=== PATIENT | male | born 1945 | race Caucasian/White ===

== ENCOUNTER → 2016-03-13 | Outpatient (CLI) | payer MEDICARE, OTHER ==
[~2016-03-13] MED LIST: DOXA4TAB; LOSA25TA8
== END | disposition home or self-care (01) ==
LOC: Rad HDHVI 09:22
PROVIDERS: ATTEND Internal Medicine Cardiovascular Disease
DX: Z01.818 Encounter for other preprocedural examination (principal); I34.2 Nonrheumatic mitral (valve) stenosis; I35.0 Nonrheumatic aortic (valve) stenosis; I37.1 Nonrheumatic pulmonary valve insufficiency; I07.1 Rheumatic tricuspid insufficiency
CPT/HCPCS: 93306; 93926; 93971

== ENCOUNTER → 2016-12-17 | Outpatient (CLI) | payer MEDICARE, OTHER ==
[2016-12-17 09:20] VITALS: BP 144/84
[2016-12-17 09:23] VITALS: BP_SYST 139; BP_SYST 144; BP_DIAS 78; BP_DIAS 84
[2016-12-17 09:30] VITALS: BP 139/78
== END | disposition home or self-care (01) ==
LOC: CHF HDHVI 09:01
PROVIDERS: ATTEND Internal Medicine Cardiovascular Disease
DX: I25.118 Atherosclerotic heart disease of native coronary artery with other forms of angina pectoris (principal); I13.0 Hypertensive heart and chronic kidney disease with heart failure and stage 1 through stage 4 chronic kidney disease, or unspecified chronic kidney disease; I50.43 Acute on chronic combined systolic (congestive) and diastolic (congestive) heart failure; Z98.61 Coronary angioplasty status; Z95.1 Presence of aortocoronary bypass graft
CPT/HCPCS: 93005; G0166; G0463

== ENCOUNTER → 2016-12-19 | Outpatient (CLI) | payer MEDICARE, OTHER ==
[2016-12-19 09:11] VITALS: BP_SYST 139; BP_SYST 141; BP_DIAS 87; BP_DIAS 91
== END | disposition home or self-care (01) ==
LOC: CHF HDHVI 09:11
PROVIDERS: ATTEND Internal Medicine Cardiovascular Disease
DX: I50.43 Acute on chronic combined systolic (congestive) and diastolic (congestive) heart failure (principal); I25.118 Atherosclerotic heart disease of native coronary artery with other forms of angina pectoris
CPT/HCPCS: G0166

== ENCOUNTER → 2016-12-21 | Outpatient (CLI) | payer MEDICARE, OTHER ==
[2016-12-21 09:09] VITALS: BP_SYST 120; BP_SYST 140; BP_DIAS 75; BP_DIAS 86
== END | disposition home or self-care (01) ==
LOC: CHF HDHVI 09:01
PROVIDERS: ATTEND Internal Medicine Cardiovascular Disease
DX: I25.118 Atherosclerotic heart disease of native coronary artery with other forms of angina pectoris (principal); I50.43 Acute on chronic combined systolic (congestive) and diastolic (congestive) heart failure; Z98.61 Coronary angioplasty status; Z95.1 Presence of aortocoronary bypass graft
CPT/HCPCS: G0166

== ENCOUNTER → 2016-12-24 | Outpatient (CLI) | payer MEDICARE, OTHER ==
[2016-12-24 09:13] VITALS: BP_SYST 140; BP_SYST 144; BP_DIAS 85; BP_DIAS 90
== END | disposition home or self-care (01) ==
LOC: CHF HDHVI 08:57
PROVIDERS: ATTEND Internal Medicine Cardiovascular Disease
DX: I25.118 Atherosclerotic heart disease of native coronary artery with other forms of angina pectoris (principal); I50.43 Acute on chronic combined systolic (congestive) and diastolic (congestive) heart failure; Z98.61 Coronary angioplasty status; Z95.1 Presence of aortocoronary bypass graft
CPT/HCPCS: G0166

== ENCOUNTER → 2016-12-26 | Outpatient (CLI) | payer MEDICARE, OTHER ==
[2016-12-26 10:07] VITALS: BP_SYST 139; BP_SYST 140; BP_DIAS 83; BP_DIAS 90
== END | disposition home or self-care (01) ==
LOC: CHF HDHVI 09:49
PROVIDERS: ATTEND Internal Medicine Cardiovascular Disease
DX: I25.118 Atherosclerotic heart disease of native coronary artery with other forms of angina pectoris (principal); I11.0 Hypertensive heart disease with heart failure; I50.43 Acute on chronic combined systolic (congestive) and diastolic (congestive) heart failure; Z98.61 Coronary angioplasty status; Z95.1 Presence of aortocoronary bypass graft
CPT/HCPCS: G0166

== ENCOUNTER → 2016-12-28 | Outpatient (CLI) | payer MEDICARE, OTHER ==
[2016-12-28 10:02] VITALS: BP_SYST 140; BP_DIAS 90; BP_DIAS 92
== END | disposition home or self-care (01) ==
LOC: CHF HDHVI 09:08
PROVIDERS: ATTEND Internal Medicine Cardiovascular Disease
DX: I25.118 Atherosclerotic heart disease of native coronary artery with other forms of angina pectoris (principal); I50.43 Acute on chronic combined systolic (congestive) and diastolic (congestive) heart failure; Z98.61 Coronary angioplasty status; Z95.1 Presence of aortocoronary bypass graft
CPT/HCPCS: G0166

== ENCOUNTER → 2016-12-31 | Outpatient (CLI) | payer MEDICARE, OTHER ==
[2016-12-31 10:06] VITALS: BP_SYST 140; BP_SYST 144; BP_DIAS 91; BP_DIAS 92
== END | disposition home or self-care (01) ==
LOC: CHF HDHVI 10:04
PROVIDERS: ATTEND Internal Medicine Cardiovascular Disease
DX: I25.118 Atherosclerotic heart disease of native coronary artery with other forms of angina pectoris (principal); I50.43 Acute on chronic combined systolic (congestive) and diastolic (congestive) heart failure; Z98.61 Coronary angioplasty status
CPT/HCPCS: G0166

== ENCOUNTER → 2017-01-02 | Outpatient (CLI) | payer MEDICARE, OTHER ==
[2017-01-02 10:11] VITALS: BP_SYST 140; BP_SYST 144; BP_DIAS 86; BP_DIAS 89
== END | disposition home or self-care (01) ==
LOC: CHF HDHVI 10:01
PROVIDERS: ATTEND Internal Medicine Cardiovascular Disease
DX: I25.118 Atherosclerotic heart disease of native coronary artery with other forms of angina pectoris (principal); I11.0 Hypertensive heart disease with heart failure; I50.43 Acute on chronic combined systolic (congestive) and diastolic (congestive) heart failure; Z98.61 Coronary angioplasty status; Z95.1 Presence of aortocoronary bypass graft
CPT/HCPCS: G0166

== ENCOUNTER → 2017-01-04 | Outpatient (CLI) | payer MEDICARE, OTHER ==
[2017-01-04 10:07] VITALS: BP_SYST 139; BP_DIAS 81; BP_DIAS 85
== END | disposition home or self-care (01) ==
LOC: CHF HDHVI 09:53
PROVIDERS: ATTEND Internal Medicine Cardiovascular Disease
DX: I25.118 Atherosclerotic heart disease of native coronary artery with other forms of angina pectoris (principal); I50.43 Acute on chronic combined systolic (congestive) and diastolic (congestive) heart failure; Z98.61 Coronary angioplasty status
CPT/HCPCS: G0166

== ENCOUNTER → 2017-01-07 | Outpatient (CLI) | payer MEDICARE, OTHER ==
[2017-01-07 10:05] VITALS: BP_SYST 129; BP_SYST 140; BP_DIAS 88; BP_DIAS 91
== END | disposition home or self-care (01) ==
LOC: CHF HDHVI 09:56
PROVIDERS: ATTEND Internal Medicine Cardiovascular Disease
DX: I25.118 Atherosclerotic heart disease of native coronary artery with other forms of angina pectoris (principal); I50.43 Acute on chronic combined systolic (congestive) and diastolic (congestive) heart failure; Z98.61 Coronary angioplasty status
CPT/HCPCS: G0166

== ENCOUNTER → 2017-01-10 | Outpatient (CLI) | payer MEDICARE, OTHER ==
[2017-01-10 10:05] VITALS: BP_SYST 134; BP_SYST 144; BP_DIAS 84; BP_DIAS 89
== END | disposition home or self-care (01) ==
LOC: CHF HDHVI 09:49
PROVIDERS: ATTEND Internal Medicine Cardiovascular Disease
DX: I25.118 Atherosclerotic heart disease of native coronary artery with other forms of angina pectoris (principal); I50.43 Acute on chronic combined systolic (congestive) and diastolic (congestive) heart failure; Z98.61 Coronary angioplasty status
CPT/HCPCS: G0166

== ENCOUNTER → 2017-01-11 | Outpatient (CLI) | payer MEDICARE, OTHER ==
[2017-01-11 09:00] VITALS: BP_SYST 140; BP_SYST 142; BP_DIAS 92
== END | disposition home or self-care (01) ==
LOC: CHF HDHVI 10:05
PROVIDERS: ATTEND Internal Medicine Cardiovascular Disease
DX: I25.118 Atherosclerotic heart disease of native coronary artery with other forms of angina pectoris (principal); I50.43 Acute on chronic combined systolic (congestive) and diastolic (congestive) heart failure; Z98.61 Coronary angioplasty status
CPT/HCPCS: G0166

== ENCOUNTER → 2017-01-14 | Outpatient (CLI) | payer MEDICARE, OTHER ==
[2017-01-14 10:09] VITALS: BP_SYST 135; BP_SYST 140; BP_DIAS 88; BP_DIAS 94
== END | disposition home or self-care (01) ==
LOC: CHF HDHVI 09:55
PROVIDERS: ATTEND Internal Medicine Cardiovascular Disease
DX: I25.118 Atherosclerotic heart disease of native coronary artery with other forms of angina pectoris (principal); I50.43 Acute on chronic combined systolic (congestive) and diastolic (congestive) heart failure; Z98.61 Coronary angioplasty status
CPT/HCPCS: G0166

== ENCOUNTER → 2017-01-18 | Outpatient (CLI) | payer MEDICARE, OTHER ==
[2017-01-18 10:15] VITALS: BP_SYST 135; BP_SYST 139; BP_DIAS 81; BP_DIAS 96
== END | disposition home or self-care (01) ==
LOC: CHF HDHVI 10:07
PROVIDERS: ATTEND Internal Medicine Cardiovascular Disease
DX: I25.118 Atherosclerotic heart disease of native coronary artery with other forms of angina pectoris (principal); I50.43 Acute on chronic combined systolic (congestive) and diastolic (congestive) heart failure; Z98.61 Coronary angioplasty status
CPT/HCPCS: G0166

== ENCOUNTER → 2017-01-22 | Outpatient (CLI) | payer MEDICARE, OTHER ==
[2017-01-22 10:01] VITALS: BP_SYST 131; BP_SYST 139; BP_DIAS 89; BP_DIAS 92
== END | disposition home or self-care (01) ==
LOC: CHF HDHVI 10:02
PROVIDERS: ATTEND Internal Medicine Cardiovascular Disease
DX: I25.118 Atherosclerotic heart disease of native coronary artery with other forms of angina pectoris (principal); I50.43 Acute on chronic combined systolic (congestive) and diastolic (congestive) heart failure; Z98.61 Coronary angioplasty status
CPT/HCPCS: G0166

== ENCOUNTER → 2017-01-23 | Outpatient (CLI) | payer MEDICARE, OTHER ==
[2017-01-23 10:08] VITALS: BP_SYST 143; BP_SYST 144; BP_DIAS 87; BP_DIAS 91
== END | disposition home or self-care (01) ==
LOC: CHF HDHVI 10:01
PROVIDERS: ATTEND Internal Medicine Cardiovascular Disease
DX: I25.118 Atherosclerotic heart disease of native coronary artery with other forms of angina pectoris (principal); I50.43 Acute on chronic combined systolic (congestive) and diastolic (congestive) heart failure; Z98.61 Coronary angioplasty status
CPT/HCPCS: G0166

== ENCOUNTER → 2017-01-25 | Outpatient (CLI) | payer MEDICARE, OTHER ==
[2017-01-25 10:15] VITALS: BP_SYST 141; BP_SYST 143; BP_DIAS 79; BP_DIAS 85
== END | disposition home or self-care (01) ==
LOC: CHF HDHVI 10:06
PROVIDERS: ATTEND Internal Medicine Cardiovascular Disease
DX: I25.118 Atherosclerotic heart disease of native coronary artery with other forms of angina pectoris (principal); I50.43 Acute on chronic combined systolic (congestive) and diastolic (congestive) heart failure; Z98.61 Coronary angioplasty status; Z95.1 Presence of aortocoronary bypass graft
CPT/HCPCS: G0166

== ENCOUNTER → 2017-01-28 | Outpatient (CLI) | payer MEDICARE, OTHER ==
[2017-01-28 10:26] VITALS: BP_SYST 133; BP_SYST 144; BP_DIAS 88; BP_DIAS 93
== END | disposition home or self-care (01) ==
LOC: CHF HDHVI 09:57
PROVIDERS: ATTEND Internal Medicine Cardiovascular Disease
DX: I25.118 Atherosclerotic heart disease of native coronary artery with other forms of angina pectoris (principal); I50.43 Acute on chronic combined systolic (congestive) and diastolic (congestive) heart failure; Z98.61 Coronary angioplasty status; Z95.1 Presence of aortocoronary bypass graft
CPT/HCPCS: G0166

== ENCOUNTER → 2017-01-30 | Outpatient (CLI) | payer MEDICARE, OTHER ==
[2017-01-30 10:04] VITALS: BP_SYST 131; BP_SYST 140; BP_DIAS 87; BP_DIAS 93
== END | disposition home or self-care (01) ==
LOC: CHF HDHVI 09:54
PROVIDERS: ATTEND Internal Medicine Cardiovascular Disease
DX: I25.118 Atherosclerotic heart disease of native coronary artery with other forms of angina pectoris (principal); I50.43 Acute on chronic combined systolic (congestive) and diastolic (congestive) heart failure; Z98.61 Coronary angioplasty status
CPT/HCPCS: G0166

== ENCOUNTER → 2017-02-04 | Outpatient (CLI) | payer MEDICARE, OTHER ==
[2017-02-04 10:33] VITALS: BP_SYST 135; BP_SYST 138; BP_DIAS 80; BP_DIAS 85
== END | disposition home or self-care (01) ==
LOC: CHF HDHVI 10:04
PROVIDERS: ATTEND Internal Medicine Cardiovascular Disease
DX: I25.118 Atherosclerotic heart disease of native coronary artery with other forms of angina pectoris (principal); I50.43 Acute on chronic combined systolic (congestive) and diastolic (congestive) heart failure; Z98.61 Coronary angioplasty status
CPT/HCPCS: G0166

== ENCOUNTER → 2017-02-06 | Outpatient (CLI) | payer MEDICARE, OTHER ==
[2017-02-06 10:18] VITALS: BP_SYST 128; BP_DIAS 74; BP_DIAS 81
== END | disposition home or self-care (01) ==
LOC: CHF HDHVI 10:06
PROVIDERS: ATTEND Internal Medicine Cardiovascular Disease
DX: I25.118 Atherosclerotic heart disease of native coronary artery with other forms of angina pectoris (principal); I50.43 Acute on chronic combined systolic (congestive) and diastolic (congestive) heart failure; Z98.61 Coronary angioplasty status; Z95.1 Presence of aortocoronary bypass graft
CPT/HCPCS: G0166

== ENCOUNTER → 2017-02-08 | Outpatient (CLI) | payer MEDICARE, OTHER ==
[2017-02-08 10:22] VITALS: BP_SYST 139; BP_SYST 142; BP_DIAS 79; BP_DIAS 85
== END | disposition home or self-care (01) ==
LOC: CHF HDHVI 09:41
PROVIDERS: ATTEND Internal Medicine Cardiovascular Disease
DX: I25.118 Atherosclerotic heart disease of native coronary artery with other forms of angina pectoris (principal); I50.43 Acute on chronic combined systolic (congestive) and diastolic (congestive) heart failure; Z98.61 Coronary angioplasty status
CPT/HCPCS: G0166

== ENCOUNTER → 2017-02-11 | Outpatient (CLI) | payer MEDICARE, OTHER ==
[2017-02-11 10:20] VITALS: BP_SYST 133; BP_SYST 140; BP_DIAS 83; BP_DIAS 86
== END | disposition home or self-care (01) ==
LOC: CHF HDHVI 10:17
PROVIDERS: ATTEND Internal Medicine Cardiovascular Disease
DX: I25.118 Atherosclerotic heart disease of native coronary artery with other forms of angina pectoris (principal); I50.43 Acute on chronic combined systolic (congestive) and diastolic (congestive) heart failure; Z98.61 Coronary angioplasty status
CPT/HCPCS: G0166

== ENCOUNTER → 2017-02-13 | Outpatient (CLI) | payer MEDICARE, OTHER ==
[2017-02-13 10:10] VITALS: BP_SYST 129; BP_SYST 130; BP_DIAS 82; BP_DIAS 89
== END | disposition home or self-care (01) ==
LOC: CHF HDHVI 10:03
PROVIDERS: ATTEND Internal Medicine Cardiovascular Disease
DX: I25.118 Atherosclerotic heart disease of native coronary artery with other forms of angina pectoris (principal); I50.43 Acute on chronic combined systolic (congestive) and diastolic (congestive) heart failure; Z98.61 Coronary angioplasty status
CPT/HCPCS: G0166

== ENCOUNTER → 2017-02-15 | Outpatient (CLI) | payer MEDICARE, OTHER ==
[2017-02-15 10:17] VITALS: BP_SYST 134; BP_SYST 139; BP_DIAS 81; BP_DIAS 88
== END | disposition home or self-care (01) ==
LOC: CHF HDHVI 10:57
PROVIDERS: ATTEND Internal Medicine Cardiovascular Disease
DX: I25.118 Atherosclerotic heart disease of native coronary artery with other forms of angina pectoris (principal); I50.43 Acute on chronic combined systolic (congestive) and diastolic (congestive) heart failure; Z98.61 Coronary angioplasty status
CPT/HCPCS: G0166

== ENCOUNTER → 2017-02-20 | Outpatient (CLI) | payer MEDICARE, OTHER ==
[2017-02-20 10:09] VITALS: BP_SYST 139; BP_SYST 140; BP_DIAS 90; BP_DIAS 91
== END | disposition home or self-care (01) ==
LOC: CHF HDHVI 10:03
PROVIDERS: ATTEND Internal Medicine Cardiovascular Disease
DX: I25.118 Atherosclerotic heart disease of native coronary artery with other forms of angina pectoris (principal); I50.43 Acute on chronic combined systolic (congestive) and diastolic (congestive) heart failure; Z98.61 Coronary angioplasty status
CPT/HCPCS: G0166

== ENCOUNTER → 2017-02-22 | Outpatient (CLI) | payer MEDICARE, OTHER ==
[2017-02-22 10:14] VITALS: BP_SYST 134; BP_DIAS 84; BP_DIAS 87
== END | disposition home or self-care (01) ==
LOC: CHF HDHVI 10:03
PROVIDERS: ATTEND Internal Medicine Cardiovascular Disease
DX: I25.118 Atherosclerotic heart disease of native coronary artery with other forms of angina pectoris (principal); I50.43 Acute on chronic combined systolic (congestive) and diastolic (congestive) heart failure; Z98.61 Coronary angioplasty status
CPT/HCPCS: G0166

== ENCOUNTER → 2017-02-26 | Outpatient (CLI) | payer MEDICARE, OTHER ==
[2017-02-26 10:19] VITALS: BP_SYST 136; BP_SYST 142; BP_DIAS 91; BP_DIAS 92
== END | disposition home or self-care (01) ==
LOC: CHF HDHVI 10:09
PROVIDERS: ATTEND Internal Medicine Cardiovascular Disease
DX: I25.118 Atherosclerotic heart disease of native coronary artery with other forms of angina pectoris (principal); I50.43 Acute on chronic combined systolic (congestive) and diastolic (congestive) heart failure; Z98.61 Coronary angioplasty status
CPT/HCPCS: G0166

== ENCOUNTER → 2017-02-27 | Outpatient (CLI) | payer MEDICARE, OTHER ==
[2017-02-27 10:08] VITALS: BP_SYST 113; BP_SYST 118; BP_DIAS 68; BP_DIAS 78
== END | disposition home or self-care (01) ==
LOC: CHF HDHVI 10:06
PROVIDERS: ATTEND Internal Medicine Cardiovascular Disease
DX: I25.118 Atherosclerotic heart disease of native coronary artery with other forms of angina pectoris (principal); I50.43 Acute on chronic combined systolic (congestive) and diastolic (congestive) heart failure; Z98.61 Coronary angioplasty status
CPT/HCPCS: G0166

== ENCOUNTER → 2017-03-01 | Outpatient (CLI) | payer MEDICARE, OTHER ==
[2017-03-01 10:17] VITALS: BP_SYST 128; BP_SYST 134; BP_DIAS 85; BP_DIAS 87
== END | disposition home or self-care (01) ==
LOC: CHF HDHVI 10:11
PROVIDERS: ATTEND Internal Medicine Cardiovascular Disease
DX: I25.118 Atherosclerotic heart disease of native coronary artery with other forms of angina pectoris (principal); I50.43 Acute on chronic combined systolic (congestive) and diastolic (congestive) heart failure; Z98.61 Coronary angioplasty status
CPT/HCPCS: G0166

== ENCOUNTER → 2017-03-05 | Outpatient (CLI) | payer MEDICARE, OTHER ==
[2017-03-05 10:18] VITALS: BP_SYST 125; BP_SYST 131; BP_DIAS 80; BP_DIAS 91
== END | disposition home or self-care (01) ==
LOC: CHF HDHVI 10:06
PROVIDERS: ATTEND Internal Medicine Cardiovascular Disease
DX: I25.118 Atherosclerotic heart disease of native coronary artery with other forms of angina pectoris (principal); I50.43 Acute on chronic combined systolic (congestive) and diastolic (congestive) heart failure; Z98.61 Coronary angioplasty status
CPT/HCPCS: G0166

== ENCOUNTER → 2017-03-08 | Outpatient (CLI) | payer MEDICARE, OTHER ==
[2017-03-08 10:15] VITALS: BP_SYST 123; BP_SYST 124; BP_DIAS 83; BP_DIAS 90
== END | disposition home or self-care (01) ==
LOC: CHF HDHVI 10:14
PROVIDERS: ATTEND Internal Medicine Cardiovascular Disease
DX: I25.118 Atherosclerotic heart disease of native coronary artery with other forms of angina pectoris (principal); I50.43 Acute on chronic combined systolic (congestive) and diastolic (congestive) heart failure; Z98.61 Coronary angioplasty status
CPT/HCPCS: G0166

== ENCOUNTER → 2017-03-12 | Outpatient (CLI) | payer MEDICARE, OTHER ==
[2017-03-12 10:11] VITALS: BP_SYST 124; BP_SYST 136; BP_DIAS 90; BP_DIAS 92
== END | disposition home or self-care (01) ==
LOC: CHF HDHVI 10:07
PROVIDERS: ATTEND Internal Medicine Cardiovascular Disease
DX: I25.118 Atherosclerotic heart disease of native coronary artery with other forms of angina pectoris (principal); I50.43 Acute on chronic combined systolic (congestive) and diastolic (congestive) heart failure; Z98.61 Coronary angioplasty status
CPT/HCPCS: G0166

== ENCOUNTER → 2017-03-15 | Outpatient (CLI) | payer MEDICARE, OTHER ==
[2017-03-15 10:12] VITALS: BP_SYST 131; BP_SYST 132; BP_DIAS 79; BP_DIAS 87
== END | disposition home or self-care (01) ==
LOC: CHF HDHVI 10:08
PROVIDERS: ATTEND Internal Medicine Cardiovascular Disease
DX: I25.118 Atherosclerotic heart disease of native coronary artery with other forms of angina pectoris (principal); I50.43 Acute on chronic combined systolic (congestive) and diastolic (congestive) heart failure; Z98.61 Coronary angioplasty status
CPT/HCPCS: G0166

== ENCOUNTER → 2017-03-18 | Outpatient (CLI) | payer MEDICARE, OTHER ==
[2017-03-18 10:16] VITALS: BP_SYST 134; BP_SYST 143; BP_DIAS 81; BP_DIAS 86
[2017-03-18 10:20] VITALS: BP 134/82
[2017-03-18 15:20] VITALS: BP 140/80
== END | disposition home or self-care (01) ==
LOC: CHF HDHVI 10:13
PROVIDERS: ATTEND Internal Medicine Cardiovascular Disease
DX: I25.118 Atherosclerotic heart disease of native coronary artery with other forms of angina pectoris (principal); I50.43 Acute on chronic combined systolic (congestive) and diastolic (congestive) heart failure; Z98.61 Coronary angioplasty status
CPT/HCPCS: G0166; G0463

== ENCOUNTER → 2017-03-28 | Outpatient (CLI) | payer MEDICARE, OTHER | END | disposition home or self-care (01) | LOC: Rad HDHVI 08:05 | PROVIDERS: ATTEND Internal Medicine Cardiovascular Disease | DX: I08.0 Rheumatic disorders of both mitral and aortic valves (principal) | CPT/HCPCS: 93306 ==

== ENCOUNTER → 2017-04-01 | Outpatient (CLI) | payer MEDICARE, OTHER ==
[~2017-04-01] VITALS: Ht 162.6 cm; Wt 90.7 kg
== END | disposition home or self-care (01) ==
LOC: Rad HDHVI 14:25
PROVIDERS: ATTEND Internal Medicine Cardiovascular Disease
DX: R07.9 Chest pain, unspecified (principal); I21.9 Acute myocardial infarction, unspecified; E78.00 Pure hypercholesterolemia, unspecified; I25.10 Atherosclerotic heart disease of native coronary artery without angina pectoris; Z95.0 Presence of cardiac pacemaker
CPT/HCPCS: 78452; 93017; 96374; A9500

== ENCOUNTER 2017-11-07 17:32 | Inpatient (IN) | payer MEDICARE, OTHER ==
[~2017-11-07] VITALS: Ht 162.6 cm; Wt 91.6 kg
[~2017-11-07 17:32] MED LIST changes: -ALUM & MAG HYDROX-SIMETH LIQ(MAALOX) 30 ML ONE; -ALUM & MAG HYDROX-SIMETH LIQ(MAALOX) 30 ML PO ONE; -ATO40T PO; -CLOP75TA28 PO; -DONNATAL 5ml ORAL Elix (BELLADONNA ALK-PHENOBARB) ONE; -DONNATAL 5ml ORAL Elix (BELLADONNA ALK-PHENOBARB) PO ONE; -LIDOCAINE VISCOUS 2% 15ML UD MT PRN; -LIDOCAINE VISCOUS 2% 15ML UD ONE
[2017-11-07 18:55] LABS: Basophils # (auto) 0.1 uL; Basophils % (auto) 0.5 % (0.0-2.0); Eosinophils # (auto) 0.1 uL; Eosinophils % (auto) 0.5 % (0.0-7.0); Hematocrit 49.5 % (41.0-53.0); Lymphocytes # (auto) 0.7 uL; Lymphocytes % (auto) 6.1 % (10.0-50.0); Mean Corpuscular Hemoglobin 30.8 pg (28.0-32.0); Mean Corpuscular Hgb Conc. 34.3 g/dL (32.0-36.0); Mean Corpuscular Volume 89.8 fL (80.0-100.0); Monocytes # (auto) 0.9 uL; Monocytes % (auto) 7.9 % (0.0-12.0); Neutrophils # (auto) 10.1 uL; Platelet Count (auto) 251 10^3/uL (140-450); Red Blood Cells 5.51 10^6/uL (4.5-5.90); Red Cell Distribution Width 14.4 % (11.8-14.3); White Blood Cell 11.9 10^3/uL (4.4-10.8)
[2017-11-07 19:05] LABS: INR 1.02 (0.9-1.15); Partial Thromboplastin Time 21.8 sec (23.78-33.04); Prothrombin Time 10.9 sec (9.27-12.13)
[2017-11-07 19:14] LABS: Alanine Aminotransferase 34 U/L (16-61); Albumin 3.9 g/dL (3.4-5.0); Alkaline Phosphatase 92 U/L (45-117); Anion Gap 7 (5-15); Aspartate Aminotransferase 28 U/L (15-37); BUN/Creatinine Ratio 11.9; Bilirubin, Total 1.6 mg/dL (0.2-1.0); Blood Urea Nitrogen 16 mg/dL (7-18); Calcium 8.9 mg/dL (8.5-10.1); Carbon Dioxide 25 mmol/L (21-32); Chloride 107 mmol/L (98-107); GFR African American 67 mL/min; GFR Non-African American 55 mL/min; Glucose 102 mg/dL (74-106); Magnesium 2.4 mg/dL (1.6-2.6); Potassium 3.9 mmol/L (3.5-5.1); Sodium 139 mmol/L (136-145); Total Protein 7.2 g/dL (6.4-8.2)
[2017-11-07] MEDS ORDERED: PANTOPRAZOLE 40 MG/10 ML VIAL IV ONE (19:45)
[2017-11-07] MEDS: SODIUM CHLORIDE 0.9% 1,000 ML IV SCH (21:17)
[2017-11-07] MEDS ORDERED: MORPHINE SULF INJ 2 MG/ML SYRINGE 1ML IV PRN (21:30)
[2017-11-07] MEDS ORDERED: NITROGLYCERIN 0.4 MG SL TAB SL PRN (21:30)
[2017-11-07] MEDS: FAMOTIDINE (10MG/ML) 2ML VL IV SCH (21:36)
[2017-11-07] MEDS ORDERED: CLOP75TA28 PO (21:48)
[2017-11-07] MEDS ORDERED: ATO40T PO (21:48)
[2017-11-07] MEDS: ATORVASTATIN 20 MG TAB PO SCH (22:45)
[2017-11-07 23:00] VITALS: BP 128/73
[2017-11-08] MEDS ORDERED: ONDANSETRON HCL 4 MG/2 ML VIAL IV PRN (01:30)
[2017-11-08 05:38] VITALS: BP 109/73
[2017-11-08 08:45] VITALS: BP 120/71
[2017-11-08] MEDS: LOSARTAN POTASSIUM 25 MG TAB PO SCH (09:29)
[2017-11-08] MEDS: LEVOFLOXACIN 500MG 100 ML IV SCH (09:31)
[2017-11-08] MEDS: CLOPIDOGREL BISULFATE 75 MG TAB PO SCH (09:31)
[2017-11-08] MEDS: FAMOTIDINE (10MG/ML) 2ML VL IV SCH ×2 (09:32→22:22)
[2017-11-08] MEDS: SODIUM CHLORIDE 0.9% 1,000 ML IV SCH ×2 (11:46→23:50)
[2017-11-08 12:00] VITALS: BP 127/79
[2017-11-08 16:10] VITALS: BP 121/71
[2017-11-08] MEDS ORDERED: TEMAZEPAM 15 MG CAP PO PRN (16:45)
[2017-11-08 17:23] LABS: Basophils # (auto) 0.1 uL; Basophils % (auto) 1.6 % (0.0-2.0); Eosinophils # (auto) 0.3 uL; Eosinophils % (auto) 3.8 % (0.0-7.0); Hematocrit 45.7 % (41.0-53.0); Hemoglobin 15.6 g/dL (13.5-17.5); Lymphocytes # (auto) 1.4 uL; Lymphocytes % (auto) 19.6 % (10.0-50.0); Mean Corpuscular Hemoglobin 31.1 pg (28.0-32.0); Mean Corpuscular Hgb Conc. 34.2 g/dL (32.0-36.0); Mean Corpuscular Volume 91.1 fL (80.0-100.0); Monocytes # (auto) 0.7 uL; Monocytes % (auto) 9.8 % (0.0-12.0); Neutrophils # (auto) 4.5 uL; Neutrophils % (auto) 65.2 % (37.0-80.0); Nucleated Red Blood Cells % 0.1 %; Platelet Count (auto) 222 10^3/uL (140-450); Red Blood Cells 5.02 10^6/uL (4.5-5.90); Red Cell Distribution Width 14.5 % (11.8-14.3)
[2017-11-08 21:53] VITALS: BP 140/78
[2017-11-08] MEDS: ATORVASTATIN 20 MG TAB PO SCH (22:22)
[2017-11-09 04:48] VITALS: BP 112/66
[2017-11-09 09:00] VITALS: BP 149/88
[2017-11-09] MEDS: CLOPIDOGREL BISULFATE 75 MG TAB PO SCH (09:59)
[2017-11-09] MEDS: LEVOFLOXACIN 500MG 100 ML IV SCH (09:59)
[2017-11-09] MEDS: FAMOTIDINE (10MG/ML) 2ML VL IV SCH (09:59)
[2017-11-09] MEDS: LOSARTAN POTASSIUM 25 MG TAB PO SCH (10:00)
[2017-11-09 13:40] VITALS: BP 114/74
[2017-11-09 16:48] VITALS: BP 114/74
== END 2017-11-09 17:05 | disposition home or self-care (01) | DRG 872 ==
LOC: ER 17:34 → OVERFLOW 17:35 → CENTRAL 22:32
PROVIDERS: ADMIT Internal Medicine Cardiovascular Disease; ATTEND Internal Medicine Cardiovascular Disease
DX: A41.9 Sepsis, unspecified organism (principal); K52.9 Noninfective gastroenteritis and colitis, unspecified; I25.10 Atherosclerotic heart disease of native coronary artery without angina pectoris; G47.30 Sleep apnea, unspecified; I10 Essential (primary) hypertension; Z82.49 Family history of ischemic heart disease and other diseases of the circulatory system; Z86.74 Personal history of sudden cardiac arrest; Z87.11 Personal history of peptic ulcer disease; Z79.899 Other long term (current) drug therapy; I25.2 Old myocardial infarction; Z90.49 Acquired absence of other specified parts of digestive tract; Z95.5 Presence of coronary angioplasty implant and graft; Z95.0 Presence of cardiac pacemaker; Z98.49 Cataract extraction status, unspecified eye
CPT/HCPCS: 36415; 71045; 80053; 83735; 83880; 84484; 85025; 85610; 85730; 93005; 94761; 96374; C9113; G0463; J1956; J2405; J3490

== ENCOUNTER → 2017-11-07 | Outpatient (CLI) | payer MEDICARE, OTHER ==
[~2017-11-07] MED LIST changes: +ALUM & MAG HYDROX-SIMETH LIQ(MAALOX) 30 ML ONE; +ALUM & MAG HYDROX-SIMETH LIQ(MAALOX) 30 ML PO ONE; +ATO40T PO; +CLOP75TA28 PO; +DONNATAL 5ml ORAL Elix (BELLADONNA ALK-PHENOBARB) ONE; +DONNATAL 5ml ORAL Elix (BELLADONNA ALK-PHENOBARB) PO ONE; +LIDOCAINE VISCOUS 2% 15ML UD MT PRN; +LIDOCAINE VISCOUS 2% 15ML UD ONE
[2017-11-07 15:55] VITALS: BP 147/95
[2017-11-07 17:10] VITALS: BP 144/89
== END | disposition home or self-care (01) ==
LOC: CHF HDHVI 15:51
PROVIDERS: ATTEND Internal Medicine Cardiovascular Disease
DX: I10 Essential (primary) hypertension (principal); R10.9 Unspecified abdominal pain; I25.10 Atherosclerotic heart disease of native coronary artery without angina pectoris; R10.13 Epigastric pain; Z87.891 Personal history of nicotine dependence
CPT/HCPCS: 93005; G0463

== ENCOUNTER → 2017-12-10 | Outpatient (CLI) | payer MEDICARE, OTHER ==
[~2017-12-10] MED LIST changes: +ATO40T PO; +CLOP75TA28 PO; -DOXA4TAB; +DOXA4TAB PO
[2017-12-10 08:25] VITALS: BP 146/86
[2017-12-10 09:15] VITALS: BP 133/81
[2017-12-10 12:19] LABS: Basophils # (auto) 0.1 uL; Basophils % (auto) 1.1 % (0.0-2.0); Eosinophils # (auto) 0.3 uL; Eosinophils % (auto) 4.2 % (0.0-7.0); Hematocrit 50.6 % (41.0-53.0); Hemoglobin 16.8 g/dL (13.5-17.5); Lymphocytes # (auto) 1.7 uL; Lymphocytes % (auto) 28.4 % (10.0-50.0); Mean Corpuscular Hemoglobin 30.1 pg (28.0-32.0); Mean Corpuscular Hgb Conc. 33.2 g/dL (32.0-36.0); Mean Corpuscular Volume 90.5 fL (80.0-100.0); Monocytes # (auto) 0.6 uL; Monocytes % (auto) 9.5 % (0.0-12.0); Neutrophils # (auto) 3.5 uL; Neutrophils % (auto) 56.8 % (37.0-80.0); Nucleated Red Blood Cells % 0.2 %; Platelet Count (auto) 235 10^3/uL (140-450); Red Blood Cells 5.59 10^6/uL (4.5-5.90); Red Cell Distribution Width 14.1 % (11.8-14.3); White Blood Cell 6.1 10^3/uL (4.4-10.8)
[2017-12-10 12:31] LABS: BUN/Creatinine Ratio 13.4; Calcium 8.5 mg/dL (8.5-10.1); Potassium 3.8 mmol/L (3.5-5.1)
[2017-12-10 12:32] LABS: Partial Thromboplastin Time 25.8 sec (23.78-33.04); Prothrombin Time 10.7 sec (9.27-12.13)
== END | disposition home or self-care (01) ==
LOC: CHF HDHVI 08:19
PROVIDERS: ATTEND Internal Medicine Cardiovascular Disease
DX: Z01.818 Encounter for other preprocedural examination (principal); D64.9 Anemia, unspecified; R79.1 Abnormal coagulation profile; I10 Essential (primary) hypertension; R94.31 Abnormal electrocardiogram [ECG] [EKG]
CPT/HCPCS: 36415; 80048; 85025; 85610; 85730; 93005; G0463

== ENCOUNTER → 2018-01-27 | Outpatient (CLI) | payer MEDICARE, OTHER | END | disposition home or self-care (01) | LOC: Rad HDHVI 09:08 | PROVIDERS: ATTEND Internal Medicine Cardiovascular Disease | DX: I07.1 Rheumatic tricuspid insufficiency (principal); I20.9 Angina pectoris, unspecified; I11.0 Hypertensive heart disease with heart failure; I50.23 Acute on chronic systolic (congestive) heart failure | CPT/HCPCS: 93306 ==

== ENCOUNTER → 2018-02-28 | Outpatient (CLI) | payer MEDICARE, OTHER ==
[2018-02-28 11:45] VITALS: BP 124/79
[2018-02-28 12:45] VITALS: BP 111/76
== END | disposition home or self-care (01) ==
LOC: CHF HDHVI 11:40
PROVIDERS: ATTEND Internal Medicine Cardiovascular Disease
DX: I10 Essential (primary) hypertension (principal); E11.9 Type 2 diabetes mellitus without complications
CPT/HCPCS: 93701; G0463

== ENCOUNTER → 2018-03-12 | Outpatient (CLI) | payer MEDICARE, OTHER | END | disposition home or self-care (01) | LOC: CHF HDHVI 10:58 | PROVIDERS: ATTEND Internal Medicine Cardiovascular Disease | DX: R07.9 Chest pain, unspecified (principal); J18.9 Pneumonia, unspecified organism; R06.02 Shortness of breath | CPT/HCPCS: 71046 ==

== ENCOUNTER → 2018-03-24 | Outpatient (CLI) | payer MEDICARE, OTHER ==
[~2018-03-24] VITALS: Ht 162.6 cm; Wt 93.0 kg
[~2018-03-24] MED LIST changes: +ADENOSINE 78 MG in GIVE UN-DILUTED 0 ML IV ONE; +ADENOSINE 90 MG/30 ML INJ IV ONE
[2018-03-24 10:33] VITALS: BP 128/72
--- NOTE | 2018-03-24 10:33 | NUR ---
CHF NEW EECP PT. MD NATHAN ORDERED BASE LINE EKG . PRIOR TO TX
[2018-03-24 11:50] VITALS: BP 139/89
--- NOTE | 2018-03-24 11:50 | NUR ---
CHF Discharge Instructions See e-MAR for any mediations given with this visit. Patient education given on disease process. Patient verbalized understanding. Previous labs reviewed. Patient discharged in stable condition with after care instructions and follow up appointment.
== END | disposition home or self-care (01) ==
LOC: CHF HDHVI 10:11
PROVIDERS: ATTEND Internal Medicine Cardiovascular Disease
DX: I11.0 Hypertensive heart disease with heart failure (principal); I50.33 Acute on chronic diastolic (congestive) heart failure; E78.2 Mixed hyperlipidemia; E11.9 Type 2 diabetes mellitus without complications; I25.110 Atherosclerotic heart disease of native coronary artery with unstable angina pectoris; Z98.61 Coronary angioplasty status
CPT/HCPCS: 78452; 93005; 96374; 96375; A9500; G0166; G0463; J0153

== ENCOUNTER → 2018-03-28 | Outpatient (CLI) | payer MEDICARE, OTHER ==
[~2018-03-28] MED LIST changes: -ADENOSINE 78 MG in GIVE UN-DILUTED 0 ML IV ONE; -ADENOSINE 90 MG/30 ML INJ IV ONE
[2018-03-28 10:00] VITALS: BP_SYST 130; BP_SYST 144; BP_DIAS 69; BP_DIAS 79
--- NOTE | 2018-03-28 10:00 | NUR ---
EECP Tx# 2 First BP check on Left arm is at 144/79 with a heart rate of 65bpm. Patient denies any symptoms or discomfort at this time. Arginext was taken before coming in to his Tx. 1st pleth at 1 min into Tx patient EECP pressure will increase if tolerable. 2nd pleth at 27 min into Tx patient is tolerating Tx pressure at 280 with no complaints or discomfort at this time.Monitor shows a good ekg and waveforms with excellent pleth valves with a heart rate of 74bpm. 3rd and final pleth at 58 min into Tx patient is tolerating Tx pressure well at this time.Monitor shows a good ekg and waveforms with excellent pleth valves and a heart rate of 84bpm.Patient has 2 min left till his Tx is completed for the day. Last BP check on his Left arm is at 130/69 with a heart rate of 60bpm. Patient denies any symptoms or discomfort at this time.
== END | disposition home or self-care (01) ==
LOC: CHF HDHVI 10:12
PROVIDERS: ATTEND Internal Medicine Cardiovascular Disease
DX: I25.118 Atherosclerotic heart disease of native coronary artery with other forms of angina pectoris (principal); I11.0 Hypertensive heart disease with heart failure; I50.23 Acute on chronic systolic (congestive) heart failure; E11.9 Type 2 diabetes mellitus without complications; Z98.61 Coronary angioplasty status
CPT/HCPCS: G0166

== ENCOUNTER → 2018-04-02 | Outpatient (CLI) | payer MEDICARE, OTHER ==
[2018-04-02 10:00] VITALS: BP_SYST 124; BP_SYST 128; BP_DIAS 72; BP_DIAS 75
--- NOTE | 2018-04-02 10:00 | NUR ---
EECP Tx#3 First BP check on his Left arm is at 128/72 with a heart rate of 61bpm. Patient came in and notify us that his BP was high yesterday evening when he check it patient states BP was 176/99.Patient states he took his BP medication and took his Arginext this morning before coming in. 1st pleth at 1 min into Tx patient EECP pressure will increase if tolerable. 2nd pleth at 26 min into Tx patient EECP pressure was increase but monitor keeps showing Arrhythmias.Monitor is stable when EECP pressure is at 80 with Upper cuff turn off.Will notify M.D. Patient denies any symptoms or discomfort at this time. 3rd and final pleth at 55 min into Tx patient is resting at this time.Monitor shows good pleth valves with a heart rate of 74bpm.Patient has 5 min left till his Tx is completed for the day. Last BP check on his Left arm is at 124/75 with a heart rate of 60bpm. Patient denies any symptoms or discomfort at this time.
== END | disposition home or self-care (01) ==
LOC: CHF HDHVI 09:57
PROVIDERS: ATTEND Internal Medicine Cardiovascular Disease
DX: I25.118 Atherosclerotic heart disease of native coronary artery with other forms of angina pectoris (principal); I11.0 Hypertensive heart disease with heart failure; I50.33 Acute on chronic diastolic (congestive) heart failure; E11.9 Type 2 diabetes mellitus without complications; Z98.61 Coronary angioplasty status
CPT/HCPCS: G0166

== ENCOUNTER → 2018-04-07 | Outpatient (CLI) | payer MEDICARE, OTHER ==
--- NOTE | 2018-04-07 10:12 | NUR ---
EECP Tx#4 First BP check on his Left arm is at 139/72 with a heart rate of 69bpm. Patient denies any symptoms or discomfort at this time. Patient took his Arginext before coming in to his Tx. No new changes on his Medications. 1st pleth at 1 min into Tx patient EECP pressure will increase if tolerable. 2nd pleth at 27 min into Tx patient EECP pressure is at 280 with upper cuff turn off due irregular rhythm every time we put the upper cuff on.Patient is tolerating Tx pressure at 280 well at this time.Monitor shows a good ekg and waveforms with excellent pleth valves. 3rd and final pleth at 57 min into Tx patient is tolerating Tx pressure at 280 with a good ekg and waveforms and good pleth valves.Heart rate is at 75bpm.Patient has 3 min left till his Tx is completed for the day. Last BP check on his Left arm is at 126/70 with a heart rate of 60bpm. Patient denies any symptoms or discomfort at this time.
[2018-04-07 11:12] VITALS: BP_SYST 126; BP_SYST 139; BP_DIAS 70; BP_DIAS 72
== END | disposition home or self-care (01) ==
LOC: CHF HDHVI 11:02
PROVIDERS: ATTEND Internal Medicine Cardiovascular Disease
DX: I25.118 Atherosclerotic heart disease of native coronary artery with other forms of angina pectoris (principal); I11.0 Hypertensive heart disease with heart failure; E11.9 Type 2 diabetes mellitus without complications; I50.33 Acute on chronic diastolic (congestive) heart failure; Z98.61 Coronary angioplasty status
CPT/HCPCS: G0166

== ENCOUNTER → 2018-04-09 | Outpatient (CLI) | payer MEDICARE, OTHER ==
[2018-04-09 10:08] VITALS: BP_SYST 132; BP_SYST 137; BP_DIAS 74; BP_DIAS 78
--- NOTE | 2018-04-09 11:08 | NUR ---
EECP Tx# 5 Patient took his Arginext before coming in to his Tx.Medications are the same no new changes. First BP check on Left arm is at 137/74 with a heart rate of 60bpm.EECP pressure at 280 with upper cuff off during Tx due to irregular rhythms with cuff on.Patient is tolerating Tx pressure during his Tx.Monitor shows a good ekg and waveforms with excellent pleth valves. Last BP and HR check on his Left arm is at 132/78 with a heart rate of 75bpm. Patient denies any symptoms or discomfort during his Tx.
== END | disposition home or self-care (01) ==
LOC: CHF HDHVI 10:08
PROVIDERS: ATTEND Internal Medicine Cardiovascular Disease
DX: I25.118 Atherosclerotic heart disease of native coronary artery with other forms of angina pectoris (principal); I11.0 Hypertensive heart disease with heart failure; I50.33 Acute on chronic diastolic (congestive) heart failure; E11.9 Type 2 diabetes mellitus without complications; Z98.61 Coronary angioplasty status
CPT/HCPCS: G0166

== ENCOUNTER → 2018-04-11 | Outpatient (CLI) | payer MEDICARE, OTHER ==
[2018-04-11 10:08] VITALS: BP_SYST 120; BP_SYST 126; BP_DIAS 67; BP_DIAS 72
--- NOTE | 2018-04-11 10:08 | NUR ---
EECP Tx# 6 First BP check on his Left arm is at 120/67 with a heart rate of 61bpm.Patient denies any symptoms or discomfort at this time.Arginext was taken before coming in to his Tx.No new changes to his medications. 2nd pleth at 44 min into Tx patient EECP pressure was increase but monitor keeps showing Arrhythmias.Monitor is stable when EECP pressure is at 160 with Upper cuff turn off.M.D has been notify. 3rd and final pleth at 57 min into Tx EECP pressure has been increase up to 200.Monitor shows irregular rhythms at this time.Patient denies any symptoms or discomfort at this moment.Will keep monitoring Patient through his Tx if any other changes occur.M.D notify Patient has 3 min left till his Tx is completed for the day. Last BP and HR at 126/72 with a heart rate of 77bpm. Patient denies any symptoms or discomfort at this time.
== END | disposition home or self-care (01) ==
LOC: CHF HDHVI 10:02
PROVIDERS: ATTEND Internal Medicine Cardiovascular Disease
DX: I25.118 Atherosclerotic heart disease of native coronary artery with other forms of angina pectoris (principal); I11.0 Hypertensive heart disease with heart failure; I50.23 Acute on chronic systolic (congestive) heart failure; E11.9 Type 2 diabetes mellitus without complications; Z98.61 Coronary angioplasty status
CPT/HCPCS: G0166

== ENCOUNTER → 2018-04-14 | Outpatient (CLI) | payer MEDICARE, OTHER ==
[2018-04-14 10:15] VITALS: BP_SYST 125; BP_SYST 127; BP_DIAS 77; BP_DIAS 78
--- NOTE | 2018-04-14 10:15 | NUR ---
[facility] Tx# 7 First BP check on his Left arm is at 125/77 with a heart rate of 67bpm.Patient denies any symptoms or discomfort at this time.Arginext was taken before coming in to his Tx. No new changes to his medications. 2nd pleth at 38 min into Tx patient is tolerating Tx pressure at 280 well with no discomfort at this time.Monitor shows good pleth valves with a heart rate of 83bpm. 3rd and final pleth at 51 min into Tx monitor shows a good ekg and waveforms with good pleth valves and a heart rate of 83bpm. Patient has 9 min left till his Tx is completed for the day. Last BP and HR at 127/78 with a heart rate of 73bpm. Patient denies any symptoms or discomfort at this time.
== END | disposition home or self-care (01) ==
LOC: CHF HDHVI 10:08
PROVIDERS: ATTEND Internal Medicine Cardiovascular Disease
DX: I25.118 Atherosclerotic heart disease of native coronary artery with other forms of angina pectoris (principal); I11.0 Hypertensive heart disease with heart failure; I50.23 Acute on chronic systolic (congestive) heart failure; E11.9 Type 2 diabetes mellitus without complications; Z98.61 Coronary angioplasty status
CPT/HCPCS: G0166

== ENCOUNTER → 2018-04-16 | Outpatient (CLI) | payer MEDICARE, OTHER ==
[2018-04-16 11:07] VITALS: BP_SYST 110; BP_SYST 128; BP_DIAS 68; BP_DIAS 69
--- NOTE | 2018-04-16 11:07 | NUR ---
EECP Tx#8 First BP check on his Left arm is at 128/69 with a heart rate of 65bpm. Arginext was taken before coming in to his Tx. Patient states he was feeling Dizzy yesterday morning.Patient states he was feeling dizzy sat down and waited for an hour then he felt better.Patient didn't take any medications just wanted for dizziness to go away. 1st pleth at 2 min into Tx.EECP pressure will be increase if tolerable.Will continue to monitor patient through his Tx if any changes occur. 2nd pleth at 32 min into Tx patient is tolerating Tx pressure at 280 well with upper cuff turn off.Monitor shows a good ekg and waveforms with good pleth valves and a heart rate of 79bpm. 3rd and final pleth at 56 min into Tx patient is doing well at this time.Monitor shows excellent pleth valves with a heart rate of 74bpm.Patient has 4 min left till his Tx is completed for the day. Last BP check on his Left arm is at 110/68 with a heart rate of 60bpm. Patient denies any symptoms or discomfort at this time.
== END | disposition home or self-care (01) ==
LOC: CHF HDHVI 11:12
PROVIDERS: ATTEND Internal Medicine Cardiovascular Disease
DX: I25.118 Atherosclerotic heart disease of native coronary artery with other forms of angina pectoris (principal); I11.0 Hypertensive heart disease with heart failure; I50.23 Acute on chronic systolic (congestive) heart failure; E11.9 Type 2 diabetes mellitus without complications; Z98.61 Coronary angioplasty status
CPT/HCPCS: G0166

== ENCOUNTER → 2018-04-18 | Outpatient (CLI) | payer MEDICARE, OTHER ==
[2018-04-18 11:00] VITALS: BP_SYST 121; BP_SYST 122; BP_DIAS 72; BP_DIAS 77
--- NOTE | 2018-04-18 15:55 | NUR ---
EECP Tx# 9 First BP check on his Left arm is at 121/72 with a heart rate of 67bpm. Patient denies any symptoms or discomfort at this time. Arginext was taken before coming in to his Tx. 1st pleth at 2 min into Tx patient EECP pressure will be increase if tolerable. 2nd pleth at 36 min into Tx.Patient is tolerating Tx pressure at 280 with upper cuff turn off at this time.Monitor shows good pleth valves with a heart rate of 84bpm. 3rd and final pleth at 48 min into Tx.Monitor shows excellent pleth valves with a heart rate of 77BPM.Patient has 12 min left till his Tx is completed for the day. Last BP check on his Left arm is at 122/77 with a heart rate of 69bpm. Patient denies any symptoms or discomfort at this time.
== END | disposition home or self-care (01) ==
LOC: CHF HDHVI 11:32
PROVIDERS: ATTEND Internal Medicine Cardiovascular Disease
DX: I25.118 Atherosclerotic heart disease of native coronary artery with other forms of angina pectoris (principal); I11.0 Hypertensive heart disease with heart failure; I50.23 Acute on chronic systolic (congestive) heart failure; E11.9 Type 2 diabetes mellitus without complications; Z98.61 Coronary angioplasty status
CPT/HCPCS: G0166

== ENCOUNTER → 2018-04-21 | Outpatient (CLI) | payer MEDICARE, OTHER ==
[2018-04-21 10:20] VITALS: BP_SYST 121; BP_SYST 124; BP_DIAS 64; BP_DIAS 68
--- NOTE | 2018-04-21 10:20 | NUR ---
EECP Tx# 10 First BP check on his Left arm is at 124/68 with a heart rate of 65bpm. Patient denies any symptoms or discomfort at this time. Arginext was taken before coming in to his Tx. 1st pleth at 1 min into Tx patient EECP pressure will be increase if tolerable. 2nd pleth at 33 min into Tx.Patient is tolerating Tx pressure at 280 with upper cuff turn off at this time.Monitor shows good pleth valves with a heart rate of 87bpm. 3rd and final pleth at 50 min into Tx.Monitor shows good pleth valves with a heart rate of 78bpm.Patient has 10 min left till his Tx is completed for the day. Last BP check on his Left arm is at 121/64 with a heart rate of 65bpm. Patient denies any symptoms or discomfort at this time.
== END | disposition home or self-care (01) ==
LOC: CHF HDHVI 10:17
PROVIDERS: ATTEND Internal Medicine Cardiovascular Disease
DX: I25.118 Atherosclerotic heart disease of native coronary artery with other forms of angina pectoris (principal); I11.0 Hypertensive heart disease with heart failure; I50.23 Acute on chronic systolic (congestive) heart failure; E11.9 Type 2 diabetes mellitus without complications; Z98.61 Coronary angioplasty status
CPT/HCPCS: G0166

== ENCOUNTER → 2018-07-04 | Outpatient (CLI) | payer MEDICARE, OTHER ==
--- NOTE | 2018-07-04 11:17 | NUR ---
EECP Tx# 11 First BP check on his Right arm is at 124/73 with a heart rate of 60bpm.Patient at this time denies any symptoms or discomfort.Arginext was taken before coming in to his Tx.Medications have been updated no new changes at this time.EECP pressure will increase if tolerable 1st pleth at 1 min into Tx.Monitor shows excellent pleth valves with a heart rate of 64bpm. 2nd pleth at 29 min into Tx patient is tolerating Tx pressure at 240 well with no discomfort at this time.Monitor shows good pleth valves with a heart rate of 81bpm. 3rd and final pleth at 58 min into Tx patient is tolerating Tx pressure well with no discomfort at this time.Monitor shows good pleth valves with a heart rate of 80bpm.Patient has 2 min left till his Tx is completed for the day. Last BP check on his Right arm is at 127/72 with a heart rate of 63bpm Patient at this time denies any symptoms or discomfort.
[2018-07-04 11:28] VITALS: BP_SYST 124; BP_SYST 127; BP_DIAS 72; BP_DIAS 73
== END | disposition home or self-care (01) ==
LOC: CHF HDHVI 09:02
PROVIDERS: ATTEND Internal Medicine Cardiovascular Disease
DX: I25.118 Atherosclerotic heart disease of native coronary artery with other forms of angina pectoris (principal); I11.0 Hypertensive heart disease with heart failure; I50.23 Acute on chronic systolic (congestive) heart failure; E11.9 Type 2 diabetes mellitus without complications; Z98.61 Coronary angioplasty status
CPT/HCPCS: G0166

== ENCOUNTER → 2018-07-07 | Outpatient (CLI) | payer MEDICARE, OTHER ==
[2018-07-07 09:06] VITALS: BP_SYST 128; BP_SYST 147; BP_DIAS 78; BP_DIAS 82
--- NOTE | 2018-07-07 15:30 | NUR ---
EECP Tx# 12 First BP check on his Right arm is at 147/82 with a heart rate of 64bpm. Patient denies any symptoms or discomfort at this time.Arginext was taken before coming in to his Tx this morning.Medications have been updated no new changes at this time. 1st pleth at 1 min into Tx EECP pressure will increase if tolerable. 2nd pleth at 37 min into Tx patient is tolerating Tx pressure at 280 well with no complaints at this time.Monitor shows good pleth valves with a heart rate of 78bpm. 3rd and final pleth at 56 min into Tx patient is doing well with no complaints at this time.Monitor shows a good ekg and waveforms with good pleth valves and a heart rate of 88bpm.Patient has 4 min left till his Tx is completed for the day. Last BP check on his Right arm is at 128/78 with a heart rate of 60bpm. Patient at this time denies any symptoms or discomfort at this time.
== END | disposition home or self-care (01) ==
LOC: CHF HDHVI 09:04
PROVIDERS: ATTEND Internal Medicine Cardiovascular Disease
DX: I25.118 Atherosclerotic heart disease of native coronary artery with other forms of angina pectoris (principal); E11.9 Type 2 diabetes mellitus without complications; E78.00 Pure hypercholesterolemia, unspecified; I11.0 Hypertensive heart disease with heart failure; I50.43 Acute on chronic combined systolic (congestive) and diastolic (congestive) heart failure; Z98.61 Coronary angioplasty status
CPT/HCPCS: G0166

== ENCOUNTER → 2018-07-09 | Outpatient (CLI) | payer MEDICARE, OTHER ==
--- NOTE | 2018-07-09 13:52 | NUR ---
EECP Tx# 13 First BP check on her right arm is at 143/80 with a heart rate of 68bpm.Patient at this time denies any symptoms or discomfort.Medications have been review no new changes at this time.Arginext was taken before coming in to his Tx. 1st pleth at 1 min into Tx EECP pressure will be increase if tolerable.2nd pleth at 30 min into Tx patient is tolerating Tx pressure at 280 well with no discomfort at this time.Monitor shows normal sinus rhythm with good pleth valves and a heart rate of 73bpm.3rd and final pleth at 55 min into Tx patient is tolerating Tx pressure at 280 well with no discomfort at this time.Heart rate is at 74bpm.Patient has 5 min left till his Tx is completed for the day.Will check last BP and HR at the end of his Tx. Last BP check on his Right arm is at 131/77 with a heart rate of 60bpm. Patient denies any symptoms or discomfort at this time.
[2018-07-09 14:09] VITALS: BP 143/80
[2018-07-09 14:10] VITALS: BP 131/77
== END | disposition home or self-care (01) ==
LOC: CHF HDHVI 09:07
PROVIDERS: ATTEND Internal Medicine Cardiovascular Disease
DX: I25.708 Atherosclerosis of coronary artery bypass graft(s), unspecified, with other forms of angina pectoris (principal); I11.0 Hypertensive heart disease with heart failure; I50.23 Acute on chronic systolic (congestive) heart failure; I25.5 Ischemic cardiomyopathy; E78.00 Pure hypercholesterolemia, unspecified; Z98.61 Coronary angioplasty status; Z95.1 Presence of aortocoronary bypass graft
CPT/HCPCS: G0166

== ENCOUNTER → 2018-07-11 | Outpatient (CLI) | payer MEDICARE, OTHER ==
--- NOTE | 2018-07-11 10:30 | NUR ---
EECP Tx# 14 First BP check on his RIGHT ARM BP 132/72 with a heart rate of 72bpm.Patient at this time denies any symptoms or discomfort.Medications have been review no new changes at this time.Arginext was taken before coming in to his Tx. EECP pressure will slowly increase if tolerable.EECP pressure upper cuff turn of per . 1st pleth at 1 min into Tx patient is tolerating Tx pressure at this time.Patient eecp pressure will slowly increase if tolerable.Monitor at this time shows a good ekg and waveforms with good pleth valves.Heart rate at this time is 87bpm. 2nd pleth at 37 min into Tx patient is tolerating Tx pressure at 280 well with no discomfort at this time.Monitor shows a good ekg and waveforms with a heart rate of 60bpm. 3rd and final pleth at 50 min into Tx patient is tolerating Tx pressure at 280 well at this time.Monitor shows a good ekg and waveforms with a heart rate of 60bpm.Patient has 10 min left till his Tx is completed for the day. Last BP and HR check while siting on left arm 139/90 with a heart rate of 60bpm. Patient at this time denies any symptoms or discomfort.
[2018-07-11 10:38] VITALS: BP 132/72
[2018-07-11 10:39] VITALS: BP 139/90
== END | disposition home or self-care (01) ==
LOC: Rad HDHVI 09:07
PROVIDERS: ATTEND Internal Medicine Cardiovascular Disease
DX: I25.118 Atherosclerotic heart disease of native coronary artery with other forms of angina pectoris (principal); E11.9 Type 2 diabetes mellitus without complications; E78.00 Pure hypercholesterolemia, unspecified; I11.0 Hypertensive heart disease with heart failure; I50.43 Acute on chronic combined systolic (congestive) and diastolic (congestive) heart failure; Z98.61 Coronary angioplasty status
CPT/HCPCS: G0166

== ENCOUNTER → 2018-07-14 | Outpatient (CLI) | payer MEDICARE, OTHER ==
[2018-07-14 09:42] VITALS: BP_SYST 125; BP_SYST 142; BP_DIAS 76; BP_DIAS 79
--- NOTE | 2018-07-14 09:42 | NUR ---
EECP Treatment # 15 BLOOD PRESSURE 142/79 HR 65 EECP PRESSURE # 280 FIRST PLETH 2 MINUTES INTO TREATMENT P0.6 , A 0.5, I 265, D 674, R 85. PATIENT HAS NO ARRHYTHMIA NOTED, TOLERATING WELL, VERIFIED CURRENT HOME MEDICATIONS, NO NEW CHANGES AT THIS TIME. PT TOOK ARGINEXT AT HOME BEFORE THE TREATMENT. SECOND PLETH 35 MINUTES INTO TREATMENT NO ECGS CHANGES NOTED P 0.7, A 0.7, I 238, D 481, R 91 THIRD PLETH P 0.8, A 1.0, I 212, D 515, R 87 PATIENT TOLERATED TREATMENT WELL, DENIES ANY CHEST PAIN OR ANY DISCOMFORT. POST TREATMENT BLOOD PRESSURE 125/76 HR 61 PT WAS ABLE TO SIT UP, AND GET DRESS, AMBULATED OUT TO THE LOBBY TO GO HOME.
== END | disposition home or self-care (01) ==
LOC: CHF HDHVI 08:56
PROVIDERS: ATTEND Internal Medicine Cardiovascular Disease
DX: I25.118 Atherosclerotic heart disease of native coronary artery with other forms of angina pectoris (principal); E11.9 Type 2 diabetes mellitus without complications; E78.00 Pure hypercholesterolemia, unspecified; I11.0 Hypertensive heart disease with heart failure; I50.43 Acute on chronic combined systolic (congestive) and diastolic (congestive) heart failure; Z98.61 Coronary angioplasty status
CPT/HCPCS: G0166

== ENCOUNTER → 2018-07-16 | Outpatient (CLI) | payer MEDICARE, OTHER ==
--- NOTE | 2018-07-16 10:33 | NUR ---
EECP Tx# 16 First BP check on his Right arm is at 131/71 with a heart rate of 60bpm.Patient at this time denies any symptoms or discomfort.Medications have been updated no new changes at this time.Arginext has been taken before coming in to his Tx this morning. 1st pleth at 1 min into Tx patient EECP pressure will slowly increase if tolerable.Monitor shows a good sinus rhythm at this time with a heart rate of 64bpm. 2nd pleth at 35 min into Tx patient is tolerating Tx pressure at 280 well with.Patient denies any symptoms or discomfort at this time.Monitor shows sinus rhythm with excellent pleth valves and a heart rate of 65bpm. 3rd and final pleth at 50 min into Tx patient is tolerating Tx pressure at 280 well with no complaints or discomfort at this time.Monitor shows a good ekg and waveforms with excellent pleth valves heart rate at this time is 72bpm.Patient has 10 min left till his Tx is completed for the day. Last BP and HR check on his Left arm is at 136/86 with a heart rate of 79bpm. Patient denies any symptoms or discomfort at this time.
[2018-07-16 12:00] VITALS: BP_SYST 131; BP_SYST 136; BP_DIAS 71; BP_DIAS 86
== END | disposition home or self-care (01) ==
LOC: CHF HDHVI 10:08
PROVIDERS: ATTEND Internal Medicine Cardiovascular Disease
DX: I25.118 Atherosclerotic heart disease of native coronary artery with other forms of angina pectoris (principal); I11.0 Hypertensive heart disease with heart failure; I50.23 Acute on chronic systolic (congestive) heart failure; E11.9 Type 2 diabetes mellitus without complications; E78.00 Pure hypercholesterolemia, unspecified; Z98.61 Coronary angioplasty status
CPT/HCPCS: G0166

== ENCOUNTER → 2018-07-18 | Outpatient (CLI) | payer MEDICARE, OTHER ==
--- NOTE | 2018-07-18 12:10 | NUR ---
EECP Tx# 17 First BP check on his Right arm is at 137/78 with a heart rate of 60bpm.Patient denies nay symptoms or discomfort at this time.Medications have been updated no new changes at this time.Arginext was taken before coming in to his Tx. 1st pleth at 1 min into TREATMENT patient EECP pressure will increase slowly if tolerable.Upper thigh will be turn off per MD.Monitor shows a good good ekg and waveforms with a heart rate of 74bpm. 2nd pleth at 44 min into Tx patient is tolerating Tx pressure at 280 well with upper cuff turn off.Monitor shows a good ekg and waveforms with excellent pleth valves and a heart rate of 62bpm.Patient at this time denies any symptoms or discomfort. 3rd and final pleth at 58 min into Tx.Monitor shows a good ekg and waveforms with excellent pleth valves and a heart rate of 65bpm.Patient at this time denies any chest pain,SOB,Fatigue or any other symptoms at this time.Patient has 2 min remaining till his Tx is completed for the day. Last BP and HR check on his Right arm is at 132/79 with a heart rate of 60bpm. At this time patient denies any symptoms or discomfort.
[2018-07-18 13:54] VITALS: BP_SYST 132; BP_SYST 137; BP_DIAS 78; BP_DIAS 79
== END | disposition home or self-care (01) ==
LOC: CHF HDHVI 10:05
PROVIDERS: ATTEND Internal Medicine Cardiovascular Disease
DX: I25.118 Atherosclerotic heart disease of native coronary artery with other forms of angina pectoris (principal); E78.00 Pure hypercholesterolemia, unspecified; I11.0 Hypertensive heart disease with heart failure; I50.33 Acute on chronic diastolic (congestive) heart failure; E11.9 Type 2 diabetes mellitus without complications; Z98.61 Coronary angioplasty status
CPT/HCPCS: G0166

== ENCOUNTER → 2018-07-21 | Outpatient (CLI) | payer MEDICARE, OTHER ==
[2018-07-21 10:06] VITALS: BP_SYST 129; BP_SYST 146; BP_DIAS 82; BP_DIAS 88
--- NOTE | 2018-07-21 14:00 | NUR ---
EECP Treatment 18 First BP check on his Right arm is at 146/88 with a heart rate of 61bpm.At this time patient denies any symptoms or discomfort.Medications have been updated no new changes at this time.Arginext was taken before coming in to his Tx. 1st pleth at 1 min into Tx patient EECP pressure will increase if tolerable with upper cuff turn off per MD. 2nd pleth at 43 min into treatment patient is tolerating treatment pressure at 280 with upper cuff turn off.Patient denies any symptoms or discomfort at this time.Monitor shows a good ekg and waveforms with a heart rate of 60bpm. 3RD AND FINAL PLETH AT 57 MIN INTO TREATMENT PATIENT IS TOLERATING TREATMENT PRESSURE AT 280 WELL.At this time patient denies any chest pain,SOB,Fatigue. Monitor shows a good ekg and waveforms with good pleth valves and a heart rate of 70bpm.Patient has 3 min left till his Tx is completed for the day. Last BP and HR check on his Right arm is at 129/82 with a heart rate of 60bpm. Patient denies any chest pain,Sob or any other symptom at this time.
== END | disposition home or self-care (01) ==
LOC: CHF HDHVI 10:08
PROVIDERS: ATTEND Internal Medicine Cardiovascular Disease
DX: I25.118 Atherosclerotic heart disease of native coronary artery with other forms of angina pectoris (principal); I11.0 Hypertensive heart disease with heart failure; I50.23 Acute on chronic systolic (congestive) heart failure; E78.00 Pure hypercholesterolemia, unspecified; E11.9 Type 2 diabetes mellitus without complications; Z98.61 Coronary angioplasty status
CPT/HCPCS: G0166

== ENCOUNTER → 2018-07-25 | Outpatient (CLI) | payer MEDICARE, OTHER ==
--- NOTE | 2018-07-25 11:52 | NUR ---
EECP TREATMENT 19 FIRST BP CHECK ON HIS RIGHT ARM IS AT 138/76 WITH A HEART RATE OF 61BPM.PATIENT AT THIS TIME DENIES ANY SYMPTOMS OR DISCOMFORT.MEDICATIONS HAVE BEEN REVIEW NO NEW CHANGES AT THIS TIME. ARGINEXT WAS TAKEN BEFORE COMING IN TO HIS TX. EECP PRESSURE WILL SLOWLY INCREASE IF TOLERABLE. 2ND PLETH AT 39 MIN INTO TREATMENT PATIENT IS TOLERATING TX PRESSURE AT 280 WELL WITH NO DISCOMFORT AT THIS TIME.MONITOR SHOWS A GOOD EKG AND WAVEFORMS WITH GOOD PLETH VALVES AND A HEART RATE OF 65BPM. 3RD AND FINAL PLETH AT 53 MIN INTO TREATMENT PATIENT IS DOING WELL WITH NO DISCOMFORT AT THIS TIME.MONITOR SHOWS A GOOD EKG AND WAVEFORMS WITH A HEART RATE OF 68BPM .AT THIS TIME PATIENT HAS 7 MIN LEFT TILL HIS TREATMENT IS COMPLETED FOR THE DAY. LAST BP AND HR CHECK ON HIS RIGHT ARM 128/75 WITH A HEART RATE OF 60BPM. PATIENT DENIES ANY SYMPTOMS OR DISCOMFORT AT THIS TIME. Addendum: 07/25/18 at 1200 by NICOLLE CHAVEZ [id number] FOR THIS TREATMENT UPPER CUFF HAS BEEN TURN OFF PER M.D.
[2018-07-25 11:58] VITALS: BP_SYST 128; BP_SYST 138; BP_DIAS 75; BP_DIAS 76
== END | disposition home or self-care (01) ==
LOC: CHF HDHVI 10:15
PROVIDERS: ATTEND Internal Medicine Cardiovascular Disease
DX: I25.118 Atherosclerotic heart disease of native coronary artery with other forms of angina pectoris (principal); I11.0 Hypertensive heart disease with heart failure; I50.43 Acute on chronic combined systolic (congestive) and diastolic (congestive) heart failure; E11.9 Type 2 diabetes mellitus without complications; E78.00 Pure hypercholesterolemia, unspecified; Z98.61 Coronary angioplasty status
CPT/HCPCS: G0166

== ENCOUNTER → 2018-07-28 | Outpatient (CLI) | payer MEDICARE, OTHER ==
--- NOTE | 2018-07-28 10:07 | NUR ---
TRATMENT # 20 FIRST BP CHECK ON HIS LEFT ARM IS AT 142/78 WITH A HEART RATE OF 63 BPM.PATIENT AT THIS TIME DENIES ANY SYMPTOMS OR DISCOMFORT.MEDICATIONS HAVE BEEN REVIEW NO NEW CHANGES AT THIS TIME. ARGINEXT WAS TAKEN BEFORE COMING IN TO HIS TX. EECP PRESSURE WILL SLOWLY INCREASE IF TOLERABLE. 280 IS THE TOLERATED PRESSURE WITH UPPER THIGH PRESSURE OFF FIRST BLETH 4 MINUTES INTO TREATMENT P 0.5, A 0.3, I 290, D 789, P 80, R 60 SECOND BLETH P 1.0, A 0.5, I 298, D 807, P 280, R 60 THIRD BLETH P 1.0, A 0.5, I 309, D 837, P 28, R 69 PATIENT TOLERATED TREATMENT WELL, DENIES ANY CHEST PAIN OR SHORTNESS OF BREATH, PVC NOTED THROUGH THE TREATMENT STOP TIME 11;07 BLOOD PRESSURE 151 / 80 HR 60, ON LEFT ARM CHECKED TWICE WITH THE DIGITAL BLOOD PRESSURE MACHINE USED DYNAMITE BP ON RT ARM 155/83 HR 69 PATIENT HAS AN APPOINTMENT WITH DR NATHAN TODAY AT 1200, AN ATTACH NOTE WITH CURRENT AND PREVIOUS VITAL SIGNS RECORD FILLED INSIDE PATIENT'S CHART FOR MD TO REVIEW. PATIENT IS CONCER, SUPPORT GIVEN TO PATIENT
[2018-07-28 11:07] VITALS: BP_SYST 142; BP_SYST 155; BP_DIAS 78; BP_DIAS 83
== END | disposition home or self-care (01) ==
LOC: Rad HDHVI 10:15
PROVIDERS: ATTEND Internal Medicine Cardiovascular Disease
DX: I25.118 Atherosclerotic heart disease of native coronary artery with other forms of angina pectoris (principal); E11.9 Type 2 diabetes mellitus without complications; I11.0 Hypertensive heart disease with heart failure; I50.43 Acute on chronic combined systolic (congestive) and diastolic (congestive) heart failure; E78.00 Pure hypercholesterolemia, unspecified; Z98.61 Coronary angioplasty status
CPT/HCPCS: G0166

== ENCOUNTER → 2018-07-30 | Outpatient (CLI) | payer MEDICARE ==
--- NOTE | 2018-07-30 15:47 | NUR ---
EECP TREATMENT #21 FIRST BP CHECK ON HIS RIGHT ARM IS AT 143/79 WITH A HEART RATE OF 63BPM.AT THIS TIME PATIENT DENIES ANY SYMPTOMS OR DISCOMFORT.ARGINEXT WAS TAKEN BEFORE COMING IN TO HIS TREATMENT.MEDICATIONS HAVE BEEN UPDATED NO NEW CHANGES AT THIS TIME. EECP PRESSURE WILL INCREASE WITH UPPER THIGH TURN OFF PER M.D. 2ND PLETH AT 43 MIN INTO TREATMENT PATIENT IS TOLERATING TREATMENT PRESSURE AT 280 WELL WITH NO DISCOMFORT AT THIS TIME.MONITOR SHOWS GOOD PLETH VALVES WITH A HEART RATE OF 69BPM.3RD AND FINAL PLETH MONITOR SHOWS EXCELLENT PLETH VALVES HEART RATE IS AT 63BPM.PER PATIENT REQUEST WILL LIKE PRESSURE TO BE REDUCE. PATIENT HAS 4 MIN LEFT OF TREATMENT.AT THIS TIME PATIENT DENIES ANY SYMPTOMS OR ANY OTHER DISCOMFORT. LAST BP CHECK ON HIS RIGHT ARM IS AT 142/89 WITH A HEART RATE OF 60BPM.
[2018-07-30 15:53] VITALS: BP 143/79
[2018-07-30 15:54] VITALS: BP 142/89
== END | disposition home or self-care (01) ==
LOC: Rad HDHVI 10:15
PROVIDERS: ATTEND Internal Medicine Cardiovascular Disease
DX: I25.118 Atherosclerotic heart disease of native coronary artery with other forms of angina pectoris (principal); I11.0 Hypertensive heart disease with heart failure; I50.43 Acute on chronic combined systolic (congestive) and diastolic (congestive) heart failure; E11.9 Type 2 diabetes mellitus without complications; E78.00 Pure hypercholesterolemia, unspecified; Z98.61 Coronary angioplasty status
CPT/HCPCS: G0166

== ENCOUNTER → 2018-08-01 | Outpatient (CLI) | payer MEDICARE ==
--- NOTE | 2018-08-01 11:25 | NUR ---
EECP TREATMENT #22 PATIENT BP WAS TAKEN IN HIS LEFT ARM IS AT 156/79 WITH A HEART RATE OF 60BPM.AT THIS TIME PATIENT DENIES ANY SYMPTOMS OR DISCOMFORT.ARGINEXT WAS TAKEN BEFORE COMING IN TO HIS TREATMENT.MEDICATIONS HAVE BEEN UPDATED PATIENT HAS A NEW MEDICATIONS BETA NEO BUT AT THIS TIME PATIENT IS NOT TAKING MEDICATION PER PATIENT HE STATES HE WILL START TAKING MEDICATION THIS WEEKEND. 1st pleth at 1 min cristian treatment patient eecp pressure will increase if tolerable. 2nd pleth at 47 min into treatment patient is tolerating treatment at 280 with upper cuff turn off.Monitor shows good pleth valves with a heart rate of 68bpm.3rd and final pleth at 58 min into treatment patient is tolerating treatment pressure at 280.Monitor shows a good ekg and waveforms with excellent pleth valves and a heart rate of 60bpm.Patient has 2 min remaining till his treatment is completed for the day. Last BP check on his Left arm is at 146/80 with a heart rate of 60bpm. At this time patient denies any symptoms or discomfort.
[2018-08-01 11:32] VITALS: BP_SYST 146; BP_SYST 156; BP_DIAS 79; BP_DIAS 80
== END | disposition home or self-care (01) ==
LOC: Rad HDHVI 09:59
PROVIDERS: ATTEND Internal Medicine Cardiovascular Disease
DX: I25.118 Atherosclerotic heart disease of native coronary artery with other forms of angina pectoris (principal); I11.0 Hypertensive heart disease with heart failure; I50.43 Acute on chronic combined systolic (congestive) and diastolic (congestive) heart failure; E11.9 Type 2 diabetes mellitus without complications; E78.00 Pure hypercholesterolemia, unspecified; Z98.61 Coronary angioplasty status
CPT/HCPCS: G0166

== ENCOUNTER → 2018-08-06 | Outpatient (CLI) | payer MEDICARE ==
--- NOTE | 2018-08-07 09:54 | NUR ---
TREATMENT # 23 Late entry for DOS 08/06/2018 First BP check on his Left arm is at 136/79 with a heart rate of 69bpm.Patient states that he check his BP this pass weekend and stated his BP was high per patient he states that he felt fatigue,Dizziness and also stated that he increase his dose on the Arginext.Patient was asked if he went to the E.R or any Urgent care due to BP being high.Per patient he states he didn't.At this time Patient denies any symptoms or discomfort we will continue to monitor patient through his Tx if any changes occur. EECP pressure will increase with upper cuff turn off per M.D.2nd pleth at 37 min into treatment patient is tolerating Treatment pressure at 280 well with no discomfort at this time.Monitor shows a good ekg and waveforms with good pleth valves and a heart rate of 64bpm.At 3rd and final pleth patient is tolerating treatment well.Patient at this time denies any symptoms or discomfort.Monitor shows excellent pleth valves with a heart rate of 65bpm.Patient has 3 min left till his treatment is completed for the day. Last BP check on his Left arm is at 139/85 with a heart rate of 68bpm. Patient at this time denies any symptoms or discomfort .
[2018-08-07 10:06] VITALS: BP_SYST 136; BP_SYST 139; BP_DIAS 79; BP_DIAS 85
== END | disposition home or self-care (01) ==
LOC: CHF HDHVI 10:11
PROVIDERS: ATTEND Internal Medicine Cardiovascular Disease
DX: I25.118 Atherosclerotic heart disease of native coronary artery with other forms of angina pectoris (principal); E11.9 Type 2 diabetes mellitus without complications; I11.0 Hypertensive heart disease with heart failure; I50.23 Acute on chronic systolic (congestive) heart failure; Z98.61 Coronary angioplasty status
CPT/HCPCS: G0166

== ENCOUNTER → 2018-08-08 | Outpatient (CLI) | payer MEDICARE ==
--- NOTE | 2018-08-08 12:09 | NUR ---
eecp treatment #24 first BP check on his Left arm is at 122/68 with a heart rate of 60bpm. Patient denies any symptoms or discomfort at this time. Arginext was taken before coming in to his Treatment. 1st pleth at 2 min into Treatment patient EECP pressure will increase if tolerable. 2nd pleth at 34 min into treatment patient is tolerating treatment pressure at 280 well with no complaints or discomfort at this time.Monitor shows a good ekg and waveforms with a heart rate of 60bpm. 3rd and final pleth at 52 min into treatment patient is doing well monitor shows a good ekg and waveforms with excellent pleth valves and a heart rate of 76bpm.Patient has 8 min left till his treatment is completed for the day. Last BP check on his Left arm is at 123/69 with a heart rate of 64bpm. Patient denies any symptoms or discomfort at this time.
[2018-08-08 12:15] VITALS: BP_SYST 122; BP_SYST 123; BP_DIAS 68; BP_DIAS 69
== END | disposition home or self-care (01) ==
LOC: CHF HDHVI 10:06
PROVIDERS: ATTEND Internal Medicine Cardiovascular Disease
DX: I25.118 Atherosclerotic heart disease of native coronary artery with other forms of angina pectoris (principal); I11.0 Hypertensive heart disease with heart failure; I50.23 Acute on chronic systolic (congestive) heart failure; E11.9 Type 2 diabetes mellitus without complications; E78.00 Pure hypercholesterolemia, unspecified; Z98.61 Coronary angioplasty status
CPT/HCPCS: G0166

== ENCOUNTER → 2018-08-11 | Outpatient (CLI) | payer MEDICARE ==
[2018-08-11 10:16] VITALS: BP_SYST 128; BP_DIAS 65; BP_DIAS 72
--- NOTE | 2018-08-11 10:16 | NUR ---
TREATMENT # 25 PATIENT ARRIVE DON TIME, HAVE EECP PANTS ON, START STRETCHING AGAINST THE CHAIR BEFORE LAYING DOWN OVER EECP MATTRESS, VERIFY PATIENT MEDICATIONS, PATIENT STARTED ON METOPROLOL MEDICATION 2 DAYS AGO FOR HIGH BLOOD PRESSURE AND 2 DOSES OF ARGINEXST. INCREASE CUFF PRESSURE SLOWLY UP TO 280 TILL PATIENT TOLERATED, BY KEEPING THE UPPER CUFF PRESSURE OFF PER DR NATHAN ORDERS. FIRST BLETH 4 MINUTES INTO TREATMENT P 0.9, A 0.9, I 272, D 622, P 280 HR 75 SECOND BLETH 31 MINUTES INTO TREATMENT P 1.0, A 1.2, I 307, D 694, P 280, HR 81 THIRD BLETH 31 MINUTES INTO TREATMENT P 0.6, A 0.4, I 288, D 732, P 280, HR 76 PATIENT TOLERATED WELL, OCCASIONAL PVC NOTED STOP TIME AT 11:16
== END | disposition home or self-care (01) ==
LOC: CHF HDHVI 10:08
PROVIDERS: ATTEND Internal Medicine Cardiovascular Disease
DX: I25.118 Atherosclerotic heart disease of native coronary artery with other forms of angina pectoris (principal); E11.9 Type 2 diabetes mellitus without complications; I11.0 Hypertensive heart disease with heart failure; I50.23 Acute on chronic systolic (congestive) heart failure; E78.00 Pure hypercholesterolemia, unspecified; Z98.61 Coronary angioplasty status
CPT/HCPCS: G0166

== ENCOUNTER → 2018-08-13 | Outpatient (CLI) | payer MEDICARE ==
[2018-08-13 11:10] VITALS: BP 125/71
[2018-08-13 11:23] VITALS: BP 125/71
[2018-08-13 11:24] VITALS: BP 130/82
== END | disposition home or self-care (01) ==
LOC: CHF HDHVI 10:04
PROVIDERS: ATTEND Internal Medicine Cardiovascular Disease
DX: I25.118 Atherosclerotic heart disease of native coronary artery with other forms of angina pectoris (principal); I11.0 Hypertensive heart disease with heart failure; I50.33 Acute on chronic diastolic (congestive) heart failure; E11.9 Type 2 diabetes mellitus without complications; E78.00 Pure hypercholesterolemia, unspecified
CPT/HCPCS: G0166

== ENCOUNTER → 2018-08-15 | Outpatient (CLI) | payer MEDICARE ==
[2018-08-15 11:06] VITALS: BP 136/83
[2018-08-15 11:39] VITALS: BP 145/91
== END | disposition home or self-care (01) ==
LOC: CHF HDHVI 10:07
PROVIDERS: ATTEND Internal Medicine Cardiovascular Disease
DX: I25.118 Atherosclerotic heart disease of native coronary artery with other forms of angina pectoris (principal); E11.9 Type 2 diabetes mellitus without complications; I11.0 Hypertensive heart disease with heart failure; I50.33 Acute on chronic diastolic (congestive) heart failure; E78.00 Pure hypercholesterolemia, unspecified; Z98.61 Coronary angioplasty status
CPT/HCPCS: G0166

== ENCOUNTER → 2018-08-18 | Outpatient (CLI) | payer MEDICARE, OTHER ==
--- NOTE | 2018-08-18 10:11 | NUR ---
TREATMENT # 28 PATIENT IS ALERT ORIENTED X4, ABLE INDEPENDENTLY TO LAY DOWN, ALL VELCRO CUFFS ADJUSTED AT MIDDLE TORSO AREA AND BOTH LOWER EXTREMITIES, STATED < I TOOK 2 DOSES OF ARGINEXT BEFORE I COME, ONCE IN A WHILE I GET CHEST DISCOMFORT LASTS FE W MINUTES, AND I AM NOT REGULAR TO TAKE MY NEW MEDICINE DR NATHAN ADDED> PATIENT IS REFERRING TO HIS LOPRESSOR, EDUCATED PATIENT THE BENEFIT OF BETA NEO AND THE POSITIVE EFFECT ON TH EHEART, ALSO ENCOURAGE PATIENT TO MAKE APPOINTMENT BEFORE LEAVING TO DAY. EECP PRESSURE INCREASED VERY SLOWLY UP TO 280, PATIENT IS TOLERATING IT WELL. FIRST PLETH 3 MINUTES INTO TREATMENT P 0.8, A 0.7, I 241, D 585, P 280, HR 85 SECOND PLETH P 0.8, A 1.0, I 278, D 718, P 280, HR 73 PATIENT CONTINUE TOLERATING IT WELL, OCCASIONAL PVC NOTED, RELAX, CLOSE EYES THIRD PLETH P 1.0, A 1.2, I 300, D 786, P 280, HR 65 OCCASIONAL PVC NOTED, PATIENT CONTINUE TOLERATING TREATMENT WELL, NO DISTRESS NOTED. STOP TIME :11:11 BLOOD PRESSURE : 132/73 HR : 60 PATIENT TOLERATED WELL, INFORM ME THAT HE IS GOING TO THE GYM AT [facility], PT INFORM ME THAT HE WILL BE REGULAR ON HIS LOPRESSOR AND IN A WEEK AND SO WILL MAKE APPOINTMENT WITH DR NATHAN
[2018-08-18 11:11] VITALS: BP_SYST 120; BP_SYST 132; BP_DIAS 66; BP_DIAS 73
== END | disposition home or self-care (01) ==
LOC: CHF HDHVI 10:06
PROVIDERS: ATTEND Internal Medicine Cardiovascular Disease
DX: I25.118 Atherosclerotic heart disease of native coronary artery with other forms of angina pectoris (principal); I11.0 Hypertensive heart disease with heart failure; I50.33 Acute on chronic diastolic (congestive) heart failure; E11.9 Type 2 diabetes mellitus without complications; E78.00 Pure hypercholesterolemia, unspecified; Z98.61 Coronary angioplasty status
CPT/HCPCS: G0166

== ENCOUNTER → 2018-08-20 | Outpatient (CLI) | payer MEDICARE ==
--- NOTE | 2018-08-20 10:00 | NUR ---
PATIENT IN FOR EECP TX #29. PATIENT DENIES ANY CHEST PAIN, USING SMALL CUFF FOR TX.
[2018-08-20 10:12] VITALS: BP 130/76
[2018-08-20 11:12] VITALS: BP 128/80
--- NOTE | 2018-08-20 11:12 | NUR ---
PATIENT COMPLETED TX WITHOUT ANY ADVERSE EVENTS, PATIENT WILL RETURN SATURDAY FOR NEXT TREATMENT.
== END | disposition home or self-care (01) ==
LOC: CHF HDHVI 10:09
PROVIDERS: ATTEND Internal Medicine Cardiovascular Disease
DX: I25.118 Atherosclerotic heart disease of native coronary artery with other forms of angina pectoris (principal); I11.0 Hypertensive heart disease with heart failure; I50.33 Acute on chronic diastolic (congestive) heart failure; E11.9 Type 2 diabetes mellitus without complications; Z98.61 Coronary angioplasty status
CPT/HCPCS: G0166

== ENCOUNTER → 2018-08-22 | Outpatient (CLI) | payer MEDICARE ==
[2018-08-22 11:29] VITALS: BP_SYST 124; BP_SYST 131; BP_DIAS 69; BP_DIAS 81
== END | disposition home or self-care (01) ==
LOC: Rad HDHVI 10:03
PROVIDERS: ATTEND Internal Medicine Cardiovascular Disease
DX: I25.118 Atherosclerotic heart disease of native coronary artery with other forms of angina pectoris (principal); I11.0 Hypertensive heart disease with heart failure; I50.33 Acute on chronic diastolic (congestive) heart failure; E78.00 Pure hypercholesterolemia, unspecified
CPT/HCPCS: G0166

== ENCOUNTER → 2018-08-25 | Outpatient (CLI) | payer MEDICARE ==
--- NOTE | 2018-08-25 10:13 | NUR ---
TREATMENT # 31 PATIENT ARRIVED ON TIME, VERY ENERGETIC, NO NEW MEDICATIONS NOTED, HE DID TOOK THE ARGINEXT BEFORE ARRIVAL, DENIES ANY PAIN 0/10, PRE SET OF BLOOD PRESSURE NOTED 124/71 HR 64, START TREATMENT SLOWLY UP TO 280, BY KEEPING THE UPPER CUFF OFF. # 1 PLETH 2 MINUTES INTO TREATMENT P 0.8 A 0.6 I 292 D 797 P 280 HR 62 PATIENT IS TOLERATING TREATMENT WELL, VERY SELDOM PAC NOTED, CONTINUE MONITORING PATIENT. # 2 PLETH 31 MINUTES INTO TREATMENT P 0.8 A 1.1 I 306 D 836 P 280 HR 60 PATIENT APPEAR RELAXED, CLOSED EYES, NO ECGS CHANGES NOTED, CONTINUE MONITORING # 3 PLETH 52 MINUTES INTO TREATMENT P 0.9 A 1.1 I 309 D 839 P 280 HR 68 PATIENT CONTINUE TOLERATING TREATMENT WELL, NO ECGS CHANGES NOTED, PATIENT CONTINUE RELAX. CLOSED EYES. STOP TIME : 11:13 LAST BLOOD PRESSURE : 129/78 HR:60
[2018-08-25 11:13] VITALS: BP_SYST 124; BP_SYST 129; BP_DIAS 71; BP_DIAS 78
== END | disposition home or self-care (01) ==
LOC: CHF HDHVI 10:07
PROVIDERS: ATTEND Internal Medicine Cardiovascular Disease
DX: I25.118 Atherosclerotic heart disease of native coronary artery with other forms of angina pectoris (principal); I11.0 Hypertensive heart disease with heart failure; I50.33 Acute on chronic diastolic (congestive) heart failure; E11.9 Type 2 diabetes mellitus without complications; E78.00 Pure hypercholesterolemia, unspecified; Z98.61 Coronary angioplasty status
CPT/HCPCS: G0166

== ENCOUNTER → 2018-08-27 | Outpatient (CLI) | payer MEDICARE ==
[2018-08-27 11:25] VITALS: BP 119/77
[2018-08-27 11:26] VITALS: BP 128/72
== END | disposition home or self-care (01) ==
LOC: CHF HDHVI 10:01
PROVIDERS: ATTEND Internal Medicine Cardiovascular Disease
DX: I25.118 Atherosclerotic heart disease of native coronary artery with other forms of angina pectoris (principal); I11.0 Hypertensive heart disease with heart failure; I50.33 Acute on chronic diastolic (congestive) heart failure; E78.00 Pure hypercholesterolemia, unspecified; E11.9 Type 2 diabetes mellitus without complications; Z98.61 Coronary angioplasty status
CPT/HCPCS: G0166

== ENCOUNTER → 2018-08-29 | Outpatient (CLI) | payer MEDICARE ==
[2018-08-29 11:17] VITALS: BP 128/81
[2018-08-29 11:28] VITALS: BP 138/88
== END | disposition home or self-care (01) ==
LOC: CHF HDHVI 10:12
PROVIDERS: ATTEND Internal Medicine Cardiovascular Disease
DX: I25.118 Atherosclerotic heart disease of native coronary artery with other forms of angina pectoris (principal); I11.0 Hypertensive heart disease with heart failure; I50.33 Acute on chronic diastolic (congestive) heart failure; E78.00 Pure hypercholesterolemia, unspecified; E11.9 Type 2 diabetes mellitus without complications; Z98.61 Coronary angioplasty status
CPT/HCPCS: G0166

== ENCOUNTER → 2018-09-01 | Outpatient (CLI) | payer MEDICARE ==
--- NOTE | 2018-09-01 10:19 | NUR ---
TREATMENT # 34 PATIENT ARRIVED ON TIME AT 1000, ANXIOUS START HIS TREATMENT, VERIFY PATIENT MEDICATION, NO NEW MEDICATIONS NOTED, ALREADY RECEIVED HIS ARGINEXT AT HOME BEFORE ARRIVAL, DENIES ANY CHEST PAIN OR SHORTNESS OF BREATH, PATIENT DID HIS ROUTINE BODY STRETCHING BEFORE STARTING HIS TREATMENT, PRE SET OF BLOOD PRESSURE IS TAKEN , TREATMENT STARTED AT THIS TIME, EECP PRESSURE STARTED SLOWLY UP TO 280, BY KEEPING UPPER THIGH CUFF OF PATIENT TOLERATED WELL. [place] BLOOD PRESSURE 131/74 HR 63 FIRST PLETH TAKEN 4 MINUTES INTO TREATMENT P 0.9, A 0.9, I 262, D 598, P 280 HR 71 PATIENT TOLERATING THE TREATMENT WELL, NO ECGS CHANGES NOTED, CLOSE HIS EYES, APPEAR RELAX. SECOND PLETH TAKEN 30 INTO TREATMENT P 0.9, A 1.0, I 310, D 803, P 280, HR 60 PATIENT CONTINUE TOLERATING WELL, CLOSE EYES AND RELAX , NO ECGS CHANGES NOTED. CONTINUE RELAX AND CLOSE EYES. THIRD PLETH IS TAKEN 52 MINUTES INTO TREATMENT P 0.9, A 1.1, I 309, D 808, P 280, HR 60 NO ECGS CHANGES NOTED, TOLERATED VERY WELL STOP TIME 11:14 POST BLOOD PRESSURE 136/77 HR 60
[2018-09-01 11:14] VITALS: BP_SYST 131; BP_SYST 136; BP_DIAS 74; BP_DIAS 77
== END | disposition home or self-care (01) ==
LOC: CHF HDHVI 10:01
PROVIDERS: ATTEND Internal Medicine Cardiovascular Disease
DX: I25.118 Atherosclerotic heart disease of native coronary artery with other forms of angina pectoris (principal); I11.0 Hypertensive heart disease with heart failure; I50.33 Acute on chronic diastolic (congestive) heart failure; E11.9 Type 2 diabetes mellitus without complications; E78.00 Pure hypercholesterolemia, unspecified; Z98.61 Coronary angioplasty status
CPT/HCPCS: G0166

== ENCOUNTER → 2018-09-03 | Outpatient (CLI) | payer MEDICARE ==
[2018-09-03 10:48] VITALS: BP 134/69
[2018-09-03 11:23] VITALS: BP 125/82
== END | disposition home or self-care (01) ==
LOC: Rad HDHVI 10:10
PROVIDERS: ATTEND Internal Medicine Cardiovascular Disease
DX: I25.118 Atherosclerotic heart disease of native coronary artery with other forms of angina pectoris (principal); I11.0 Hypertensive heart disease with heart failure; I50.33 Acute on chronic diastolic (congestive) heart failure; E11.9 Type 2 diabetes mellitus without complications; E78.00 Pure hypercholesterolemia, unspecified; Z98.61 Coronary angioplasty status
CPT/HCPCS: G0166

== ENCOUNTER → 2019-01-05 | Outpatient (CLI) | payer MEDICARE ==
[~2019-01-05] MED LIST changes: +PROMETHAZINE HCL 25 MG/ML 1ML IV ONE; +PROMETHAZINE HCL 25 MG/ML 1ML ONE; +SODIUM CHLORIDE 0.9% 500 ML IV ONE
[2019-01-05 13:24] VITALS: BP 121/72
--- NOTE | 2019-01-05 13:24 | NUR ---
IV insertion IV access obtained, via clean sterile technique by inserting 22 gauge catheter at after 3 attempt(s). IV secured properly. No trauma to site. Patient tolerated procedure well.
[2019-01-05 15:54] LABS: Basophils # (auto) 0 uL; Basophils % (auto) 0.4 % (0.0-2.0); Eosinophils # (auto) 0 uL; Eosinophils % (auto) 0.1 % (0.0-7.0); Hematocrit 51.6 % (41.0-53.0); Hemoglobin 16.9 g/dL (13.5-17.5); Lymphocytes # (auto) 0.2 uL; Lymphocytes % (auto) 1.3 % (10.0-50.0); Mean Corpuscular Hemoglobin 30.4 pg (28.0-32.0); Mean Corpuscular Hgb Conc. 32.8 g/dL (32.0-36.0); Mean Corpuscular Volume 92.7 fL (80.0-100.0); Monocytes # (auto) 0.5 uL; Monocytes % (auto) 4.3 % (0.0-12.0); Neutrophils # (auto) 10.7 uL; Neutrophils % (auto) 93.9 % (37.0-80.0); Platelet Count (auto) 217 10^3/uL (140-450); Red Blood Cells 5.57 10^6/uL (4.5-5.90); Red Cell Distribution Width 14.6 % (11.8-14.3); White Blood Cell 11.4 10^3/uL (4.4-10.8)
[2019-01-05 15:55] VITALS: BP 123/69
--- NOTE | 2019-01-05 15:55 | NUR ---
IV removal IV DC'd with sterile technique, catheter fully intact. Pressure dressing applied to site. Patient tolerated procedure well. Discharged with aftercare instructions per MD. NOTE:
[2019-01-05 15:59] LABS: Albumin 3.2 g/dL (3.4-5.0); Anion Gap 8 (5-15); Blood Urea Nitrogen 20 mg/dL (7-18); Calcium 7.7 mg/dL (8.5-10.1); Carbon Dioxide 22 mmol/L (21-32); Chloride 110 mmol/L (98-107); Glucose 101 mg/dL (74-106); Potassium 4.3 mmol/L (3.5-5.1); Sodium 140 mmol/L (136-145)
--- NOTE | 2019-01-05 15:59 | NUR ---
Discharge Instructions See e-MAR for any mediations given with this visit. Patient education given on disease process. Patient verbalized understanding. Previous labs reviewed. Patient discharged in stable condition with after care instructions and follow up appointment[place] [id number] PHENERGAN IV
[2019-01-05 16:00] LABS: Alanine Aminotransferase 29 U/L (16-61); Aspartate Aminotransferase 18 U/L (15-37); BUN/Creatinine Ratio 16.9; GFR African American 78 mL/min; GFR Non-African American 64 mL/min
[2019-01-05 16:03] LABS: Alkaline Phosphatase 83 U/L (45-117); Bilirubin, Total 1.4 mg/dL (0.2-1.0); Total Protein 6.2 g/dL (6.4-8.2)
== END | disposition home or self-care (01) ==
LOC: CHF HDHVI 13:20
PROVIDERS: ATTEND Internal Medicine Cardiovascular Disease
DX: E86.0 Dehydration (principal); R11.0 Nausea; D64.9 Anemia, unspecified; I10 Essential (primary) hypertension
CPT/HCPCS: 36415; 80053; 85025; 96361; 96374; G0463; J2550; J7040; 96365; 96366; 96375

== ENCOUNTER → 2019-12-08 | Outpatient (CLI) | payer MEDICARE ==
[~2019-12-08] MED LIST changes: -PROMETHAZINE HCL 25 MG/ML 1ML IV ONE; -PROMETHAZINE HCL 25 MG/ML 1ML ONE; -SODIUM CHLORIDE 0.9% 500 ML IV ONE
[2019-12-08 10:40] VITALS: BP 124/76
[2019-12-08 11:01] VITALS: BP 126/83
== END | disposition home or self-care (01) ==
LOC: CHF HDHVI 09:32
PROVIDERS: ATTEND Internal Medicine Cardiovascular Disease
DX: I25.728 Atherosclerosis of autologous artery coronary artery bypass graft(s) with other forms of angina pectoris (principal); I50.43 Acute on chronic combined systolic (congestive) and diastolic (congestive) heart failure; I10 Essential (primary) hypertension; R06.02 Shortness of breath; E78.5 Hyperlipidemia, unspecified; I63.9 Cerebral infarction, unspecified; Z98.61 Coronary angioplasty status
CPT/HCPCS: G0166

== ENCOUNTER → 2019-12-09 | Outpatient (CLI) | payer MEDICARE ==
[2019-12-09 10:18] VITALS: BP 124/76
[2019-12-09 11:11] VITALS: BP 136/82
== END | disposition home or self-care (01) ==
LOC: CHF HDHVI 09:44
PROVIDERS: ATTEND Internal Medicine Cardiovascular Disease
DX: I25.728 Atherosclerosis of autologous artery coronary artery bypass graft(s) with other forms of angina pectoris (principal); I50.43 Acute on chronic combined systolic (congestive) and diastolic (congestive) heart failure; I10 Essential (primary) hypertension; R06.02 Shortness of breath; E78.5 Hyperlipidemia, unspecified; I63.9 Cerebral infarction, unspecified; Z95.5 Presence of coronary angioplasty implant and graft
CPT/HCPCS: G0166

== ENCOUNTER → 2019-12-11 | Outpatient (CLI) | payer MEDICARE ==
[2019-12-11 10:15] VITALS: BP 142/81
[2019-12-11 10:50] VITALS: BP 133/73
== END | disposition home or self-care (01) ==
LOC: CHF HDHVI 09:39
PROVIDERS: ATTEND Internal Medicine Cardiovascular Disease
DX: I25.728 Atherosclerosis of autologous artery coronary artery bypass graft(s) with other forms of angina pectoris (principal); I50.43 Acute on chronic combined systolic (congestive) and diastolic (congestive) heart failure; R06.02 Shortness of breath; I10 Essential (primary) hypertension; E78.5 Hyperlipidemia, unspecified; I63.9 Cerebral infarction, unspecified; Z98.61 Coronary angioplasty status
CPT/HCPCS: G0166

== ENCOUNTER → 2019-12-14 | Outpatient (CLI) | payer MEDICARE ==
[2019-12-14 10:16] VITALS: BP 125/82
--- NOTE | 2019-12-14 10:17 | NUR ---
Signature Attestation Statement: I MARY LOPEZ performed this procedure EECP on this patient. Addendum: 12/14/19 at 1017 by MARY LOPEZ HDHI2 Amended: Links added.
--- NOTE | 2019-12-14 10:17 | NUR ---
Signature Attestation Statement: I MARY LOPEZ performed this procedure EECP on this patient. Addendum: 12/14/19 at 1018 by MARY LOPEZ HDHI2 Amended: Links added.
--- NOTE | 2019-12-14 10:18 | NUR ---
Signature Attestation Statement: I MARY LOPEZ performed this procedure EECP on this patient. Addendum: 12/14/19 at 1019 by MARY LOPEZ HDHI2 Amended: Links added.
[2019-12-14 10:49] VITALS: BP 126/71
--- NOTE | 2019-12-14 10:49 | NUR ---
Signature Attestation Statement: I MARY LOPEZ performed this procedure EECP on this patient. Addendum: 12/14/19 at 1049 by MARY LOPEZ HDHI2 Amended: Links added.
--- NOTE | 2019-12-14 11:03 | NUR ---
Signature Attestation Statement: I MARY LOPEZ performed this procedure EECP on this patient. Addendum: 12/14/19 at 1104 by MARY LOPEZ HDHI2 Amended: Links added.
== END | disposition home or self-care (01) ==
LOC: CHF HDHVI 09:49
PROVIDERS: ATTEND Internal Medicine Cardiovascular Disease
DX: I25.728 Atherosclerosis of autologous artery coronary artery bypass graft(s) with other forms of angina pectoris (principal); I50.43 Acute on chronic combined systolic (congestive) and diastolic (congestive) heart failure; I10 Essential (primary) hypertension; E78.5 Hyperlipidemia, unspecified; I63.9 Cerebral infarction, unspecified; R06.02 Shortness of breath; Z98.61 Coronary angioplasty status
CPT/HCPCS: G0166

== ENCOUNTER → 2019-12-16 | Outpatient (CLI) | payer MEDICARE ==
[2019-12-16 10:26] VITALS: BP 142/75
[2019-12-16 10:56] VITALS: BP 126/75
== END | disposition home or self-care (01) ==
LOC: CHF HDHVI 09:41
PROVIDERS: ATTEND Internal Medicine Cardiovascular Disease
DX: I25.728 Atherosclerosis of autologous artery coronary artery bypass graft(s) with other forms of angina pectoris (principal); I50.43 Acute on chronic combined systolic (congestive) and diastolic (congestive) heart failure; I10 Essential (primary) hypertension; R06.02 Shortness of breath; E78.5 Hyperlipidemia, unspecified; I63.9 Cerebral infarction, unspecified; Z95.5 Presence of coronary angioplasty implant and graft
CPT/HCPCS: G0166

== ENCOUNTER → 2019-12-21 | Outpatient (CLI) | payer MEDICARE ==
[2019-12-21 16:13] VITALS: BP 143/85
--- NOTE | 2019-12-21 16:13 | NUR ---
Signature Attestation Statement: I MARY LOPEZ performed this procedure EECP on this patient. Addendum: 12/21/19 at 1613 by MARY LOPEZ HDHI2 Amended: Links added.
--- NOTE | 2019-12-21 16:14 | NUR ---
Signature Attestation Statement: I MARY LOPEZ performed this procedure EECP on this patient. Addendum: 12/21/19 at 1614 by MARY LOPEZ HDHI2 Amended: Links added.
--- NOTE | 2019-12-21 16:14 | NUR ---
Signature Attestation Statement: I MARY LOPEZ performed this procedure EECP on this patient. Addendum: 12/21/19 at 1614 by MARY OLPEZ HDHI2 Amended: Links added.
[2019-12-21 16:20] VITALS: BP 132/84
--- NOTE | 2019-12-21 16:20 | NUR ---
Signature Attestation Statement: I MARY LOPEZ performed this procedure EECP on this patient. Addendum: 12/21/19 at 1620 by MARY LOPEZ HDHI2 Amended: Links added.
--- NOTE | 2019-12-21 16:21 | NUR ---
Signature Attestation Statement: I MARY LOPEZ performed this procedure EECP on this patient. Addendum: 12/21/19 at 1621 by MARY LOPEZ HDHI2 Amended: Links added.
== END | disposition home or self-care (01) ==
LOC: CHF HDHVI 09:47
PROVIDERS: ATTEND Internal Medicine Cardiovascular Disease
DX: I25.728 Atherosclerosis of autologous artery coronary artery bypass graft(s) with other forms of angina pectoris (principal); I50.43 Acute on chronic combined systolic (congestive) and diastolic (congestive) heart failure; R06.02 Shortness of breath; I63.9 Cerebral infarction, unspecified; Z95.2 Presence of prosthetic heart valve
CPT/HCPCS: G0166

== ENCOUNTER → 2019-12-23 | Outpatient (CLI) | payer MEDICARE ==
[2019-12-23 16:06] VITALS: BP 134/82
--- NOTE | 2019-12-23 16:06 | NUR ---
Signature Attestation Statement: I MARY LOPEZ performed this procedure EECP on this patient. Addendum: 12/23/19 at 1607 by MARY LOPEZ HDHI2 Amended: Links added.
--- NOTE | 2019-12-23 16:08 | NUR ---
Signature Attestation Statement: I MARY LOPEZ performed this procedure EECP on this patient. Addendum: 12/23/19 at 1608 by MARY LOPEZ HDHI2 Amended: Links added.
--- NOTE | 2019-12-23 16:13 | NUR ---
Signature Attestation Statement: I MARY LOPEZ performed this procedure EECP on this patient. Addendum: 12/23/19 at 1614 by MARY LOPEZ HDHI2 Amended: Links added.
[2019-12-23 16:14] VITALS: BP 121/84
--- NOTE | 2019-12-23 16:14 | NUR ---
Signature Attestation Statement: I MARY LOPEZ performed this procedure EECP on this patient. Addendum: 12/23/19 at 1615 by MARY LOPEZ HDHI2 Amended: Links added.
== END | disposition home or self-care (01) ==
LOC: CHF HDHVI 09:48
PROVIDERS: ATTEND Internal Medicine Cardiovascular Disease
DX: I25.728 Atherosclerosis of autologous artery coronary artery bypass graft(s) with other forms of angina pectoris (principal); I11.0 Hypertensive heart disease with heart failure; I50.43 Acute on chronic combined systolic (congestive) and diastolic (congestive) heart failure; I63.9 Cerebral infarction, unspecified; E78.5 Hyperlipidemia, unspecified; R06.02 Shortness of breath; Z98.61 Coronary angioplasty status
CPT/HCPCS: G0166

== ENCOUNTER → 2019-12-25 | Outpatient (CLI) | payer MEDICARE ==
[2019-12-25 10:43] VITALS: BP 123/71
[2019-12-25 11:12] VITALS: BP 120/77
== END | disposition home or self-care (01) ==
LOC: CHF HDHVI 10:07
PROVIDERS: ATTEND Internal Medicine Cardiovascular Disease
DX: I25.728 Atherosclerosis of autologous artery coronary artery bypass graft(s) with other forms of angina pectoris (principal); I11.0 Hypertensive heart disease with heart failure; I50.43 Acute on chronic combined systolic (congestive) and diastolic (congestive) heart failure; E78.5 Hyperlipidemia, unspecified; I63.9 Cerebral infarction, unspecified; R06.02 Shortness of breath; Z98.61 Coronary angioplasty status
CPT/HCPCS: G0166

== ENCOUNTER → 2019-12-28 | Outpatient (CLI) | payer MEDICARE ==
[2019-12-28 10:48] VITALS: BP 125/84
[2019-12-28 11:07] VITALS: BP 133/81
== END | disposition home or self-care (01) ==
LOC: CHF HDHVI 10:08
PROVIDERS: ATTEND Internal Medicine Cardiovascular Disease
DX: I25.728 Atherosclerosis of autologous artery coronary artery bypass graft(s) with other forms of angina pectoris (principal); I11.0 Hypertensive heart disease with heart failure; I50.43 Acute on chronic combined systolic (congestive) and diastolic (congestive) heart failure; E78.5 Hyperlipidemia, unspecified; I63.9 Cerebral infarction, unspecified; R06.02 Shortness of breath; Z95.5 Presence of coronary angioplasty implant and graft
CPT/HCPCS: G0166

== ENCOUNTER → 2019-12-30 | Outpatient (CLI) | payer MEDICARE ==
[2019-12-30 10:34] VITALS: BP 116/71
[2019-12-30 10:52] VITALS: BP 100/67
== END | disposition home or self-care (01) ==
LOC: CHF HDHVI 09:40
PROVIDERS: ATTEND Internal Medicine Cardiovascular Disease
DX: I25.728 Atherosclerosis of autologous artery coronary artery bypass graft(s) with other forms of angina pectoris (principal); I11.0 Hypertensive heart disease with heart failure; I50.43 Acute on chronic combined systolic (congestive) and diastolic (congestive) heart failure; E78.5 Hyperlipidemia, unspecified; I63.9 Cerebral infarction, unspecified; R06.02 Shortness of breath; Z95.5 Presence of coronary angioplasty implant and graft
CPT/HCPCS: G0166

== ENCOUNTER → 2020-01-01 | Outpatient (CLI) | payer MEDICARE ==
[2020-01-01 10:55] VITALS: BP 129/83
--- NOTE | 2020-01-01 11:05 | NUR ---
Signature Attestation Statement: I MARY LOPEZ performed this procedure EECP on this patient. Addendum: 01/01/20 at 1106 by MARY LOPEZ HDHI2 Amended: Links added.
--- NOTE | 2020-01-01 11:05 | NUR ---
Signature Attestation Statement: I MARY LOPEZ performed this procedure EECP on this patient. Addendum: 01/01/20 at 1105 by MARY LOPEZ HDHI2 Amended: Links added.
[2020-01-01 11:13] VITALS: BP 118/76
--- NOTE | 2020-01-01 11:13 | NUR ---
Signature Attestation Statement: I MARY LOPEZ performed this procedure EECP on this patient. Addendum: 01/01/20 at 1113 by MARY LOPEZ HDHI2 Amended: Links added.
--- NOTE | 2020-01-01 11:20 | NUR ---
Signature Attestation Statement: I MARY LOPEZ performed this procedure EECP on this patient. Addendum: 01/01/20 at 1120 by MARY LOPEZ HDHI2 Amended: Links added.
== END | disposition home or self-care (01) ==
LOC: CHF HDHVI 09:47
PROVIDERS: ATTEND Internal Medicine Cardiovascular Disease
DX: I25.728 Atherosclerosis of autologous artery coronary artery bypass graft(s) with other forms of angina pectoris (principal); I11.0 Hypertensive heart disease with heart failure; I50.43 Acute on chronic combined systolic (congestive) and diastolic (congestive) heart failure; E78.5 Hyperlipidemia, unspecified; I63.9 Cerebral infarction, unspecified; R06.02 Shortness of breath; Z95.5 Presence of coronary angioplasty implant and graft
CPT/HCPCS: G0166

== ENCOUNTER → 2020-01-04 | Outpatient (CLI) | payer MEDICARE ==
[2020-01-04 10:37] VITALS: BP 130/77
--- NOTE | 2020-01-04 10:37 | NUR ---
Signature Attestation Statement: I MARY LOPEZ performed this procedure EECP on this patient. Addendum: 01/04/20 at 1038 by MARY LOPEZ HDHI2 Amended: Links added.
--- NOTE | 2020-01-04 10:37 | NUR ---
Signature Attestation Statement: I MARY LOPEZ performed this procedure EECP on this patient. Addendum: 01/04/20 at 1037 by MARY LOPEZ HDHI2 Amended: Links added.
--- NOTE | 2020-01-04 10:48 | NUR ---
Signature Attestation Statement: I MARY LOPEZ performed this procedure EECP on this patient. Addendum: 01/04/20 at 1049 by MARY LOPEZ HDHI2 Amended: Links added.
[2020-01-04 10:49] VITALS: BP 134/78
--- NOTE | 2020-01-04 10:53 | NUR ---
Signature Attestation Statement: I MARY LOPEZ performed this procedure EECP on this patient. Addendum: 01/04/20 at 1054 by MARY LOPEZ HDHI2 Amended: Links added.
== END | disposition home or self-care (01) ==
LOC: CHF HDHVI 09:40
PROVIDERS: ATTEND Internal Medicine Cardiovascular Disease
DX: I25.728 Atherosclerosis of autologous artery coronary artery bypass graft(s) with other forms of angina pectoris (principal); I11.0 Hypertensive heart disease with heart failure; I50.43 Acute on chronic combined systolic (congestive) and diastolic (congestive) heart failure; E78.5 Hyperlipidemia, unspecified; I63.9 Cerebral infarction, unspecified; R06.02 Shortness of breath; Z98.61 Coronary angioplasty status
CPT/HCPCS: G0166

== ENCOUNTER → 2020-01-06 | Outpatient (CLI) | payer MEDICARE ==
[2020-01-06 10:36] VITALS: BP 139/82
[2020-01-06 10:46] VITALS: BP 128/78
== END | disposition home or self-care (01) ==
LOC: CHF HDHVI 09:37
PROVIDERS: ATTEND Internal Medicine Cardiovascular Disease
DX: I25.728 Atherosclerosis of autologous artery coronary artery bypass graft(s) with other forms of angina pectoris (principal); I11.0 Hypertensive heart disease with heart failure; I50.43 Acute on chronic combined systolic (congestive) and diastolic (congestive) heart failure; E78.5 Hyperlipidemia, unspecified; I63.9 Cerebral infarction, unspecified; R06.02 Shortness of breath; Z95.5 Presence of coronary angioplasty implant and graft
CPT/HCPCS: G0166

== ENCOUNTER → 2020-01-08 | Outpatient (CLI) | payer MEDICARE ==
[2020-01-08 11:11] VITALS: BP 130/80
--- NOTE | 2020-01-08 11:12 | NUR ---
Signature Attestation Statement: I MARY LOPEZ performed this procedure EECP on this patient. Addendum: 01/08/20 at 1112 by MARY LOPEZ HDHI2 Amended: Links added.
--- NOTE | 2020-01-08 11:13 | NUR ---
Signature Attestation Statement: I MARY LOPEZ performed this procedure EECP on this patient. Addendum: 01/08/20 at 1113 by MARY LOPEZ HDHI2 Amended: Links added.
--- NOTE | 2020-01-08 11:17 | NUR ---
Signature Attestation Statement: I MARY LOPEZ performed this procedure EECP on this patient. Addendum: 01/08/20 at 1118 by MARY LOPEZ HDHI2 Amended: Links added.
[2020-01-08 11:18] VITALS: BP 136/83
--- NOTE | 2020-01-08 11:18 | NUR ---
Signature Attestation Statement: I MARY LOPEZ performed this procedure EECP on this patient. Addendum: 01/08/20 at 1119 by MARY LOPEZ HDHI2 Amended: Links added.
== END | disposition home or self-care (01) ==
LOC: CHF HDHVI 09:35
PROVIDERS: ATTEND Internal Medicine Cardiovascular Disease
DX: I25.728 Atherosclerosis of autologous artery coronary artery bypass graft(s) with other forms of angina pectoris (principal); I11.0 Hypertensive heart disease with heart failure; I50.43 Acute on chronic combined systolic (congestive) and diastolic (congestive) heart failure; E78.5 Hyperlipidemia, unspecified; I63.9 Cerebral infarction, unspecified; R06.02 Shortness of breath; Z95.5 Presence of coronary angioplasty implant and graft
CPT/HCPCS: G0166

== ENCOUNTER → 2020-01-15 | Outpatient (CLI) | payer MEDICARE ==
[2020-01-15 10:33] VITALS: BP 134/72
--- NOTE | 2020-01-15 10:34 | NUR ---
Signature Attestation Statement: I MARY LOPEZ performed this procedure EECP on this patient. Addendum: 01/15/20 at 1034 by MARY LOPEZ HDHI2 Amended: Links added.
--- NOTE | 2020-01-15 10:35 | NUR ---
Signature Attestation Statement: I MARY LOPEZ performed this procedure EECP on this patient. Addendum: 01/15/20 at 1036 by MARY LOPEZ HDHI2 Amended: Links added.
[2020-01-15 10:46] VITALS: BP 127/84
--- NOTE | 2020-01-15 10:46 | NUR ---
Signature Attestation Statement: I MARY LOPEZ performed this procedure EECP on this patient. Addendum: 01/15/20 at 1046 by MARY LOPEZ HDHI2 Amended: Links added.
--- NOTE | 2020-01-15 10:59 | NUR ---
Signature Attestation Statement: I MARY LOPEZ performed this procedure EECP on this patient. Addendum: 01/15/20 at 1059 by MARY LOPEZ HDHI2 Amended: Links added.
== END | disposition home or self-care (01) ==
LOC: CHF HDHVI 09:40
PROVIDERS: ATTEND Internal Medicine Cardiovascular Disease
DX: I25.728 Atherosclerosis of autologous artery coronary artery bypass graft(s) with other forms of angina pectoris (principal); I11.0 Hypertensive heart disease with heart failure; I50.43 Acute on chronic combined systolic (congestive) and diastolic (congestive) heart failure; I63.9 Cerebral infarction, unspecified; E78.5 Hyperlipidemia, unspecified; R06.02 Shortness of breath; Z95.5 Presence of coronary angioplasty implant and graft
CPT/HCPCS: G0166

== ENCOUNTER → 2020-01-18 | Outpatient (CLI) | payer MEDICARE ==
[2020-01-18 10:50] VITALS: BP 146/83
--- NOTE | 2020-01-18 10:50 | NUR ---
Signature Attestation Statement: I MARY LOPEZ performed this procedure EECP on this patient. Addendum: 01/18/20 at 1051 by MARY LOPEZ HDHI2 Amended: Links added.
--- NOTE | 2020-01-18 10:51 | NUR ---
Signature Attestation Statement: I MARY LOPEZ performed this procedure EECP on this patient. Addendum: 01/18/20 at 1052 by MARY LOPEZ HDHI2 Amended: Links added.
--- NOTE | 2020-01-18 11:02 | NUR ---
Signature Attestation Statement: I MARY LOPEZ performed this procedure EECP on this patient. Addendum: 01/18/20 at 1102 by MARY LOPEZ HDHI2 Amended: Links added.
[2020-01-18 11:06] VITALS: BP 128/82
--- NOTE | 2020-01-18 11:06 | NUR ---
Signature Attestation Statement: I MARY LOPEZ performed this procedure EECP on this patient. Addendum: 01/18/20 at 1107 by MARY LOPEZ HDHI2 Amended: Links added.
== END | disposition home or self-care (01) ==
LOC: CHF HDHVI 09:40
PROVIDERS: ATTEND Internal Medicine Cardiovascular Disease
DX: I25.728 Atherosclerosis of autologous artery coronary artery bypass graft(s) with other forms of angina pectoris (principal); I11.0 Hypertensive heart disease with heart failure; I50.43 Acute on chronic combined systolic (congestive) and diastolic (congestive) heart failure; E78.5 Hyperlipidemia, unspecified; I63.9 Cerebral infarction, unspecified; R06.02 Shortness of breath; Z98.61 Coronary angioplasty status
CPT/HCPCS: G0166

== ENCOUNTER → 2020-01-20 | Outpatient (CLI) | payer MEDICARE ==
[2020-01-20 10:47] VITALS: BP 112/77
--- NOTE | 2020-01-20 10:47 | NUR ---
Signature Attestation Statement: I MARY LOPEZ performed this procedure EECP on this patient. Addendum: 01/20/20 at 1048 by MARY LOPEZ HDHI2 Amended: Links added.
--- NOTE | 2020-01-20 10:47 | NUR ---
Signature Attestation Statement: I MARY LOPEZ performed this procedure EECP on this patient. Addendum: 01/20/20 at 1047 by MARY LOPEZ HDHI2 Amended: Links added.
[2020-01-20 10:54] VITALS: BP 121/77
--- NOTE | 2020-01-20 10:54 | NUR ---
Signature Attestation Statement: I MARY LOPEZ performed this procedure EECP on this patient. Addendum: 01/20/20 at 1054 by MARY LOPEZ HDHI2 Amended: Links added.
--- NOTE | 2020-01-20 11:03 | NUR ---
Signature Attestation Statement: I MARY LOPEZ performed this procedure EECP on this patient. Addendum: 01/20/20 at 1103 by MARY LOPEZ HDHI2 Amended: Links added.
== END | disposition home or self-care (01) ==
LOC: CHF HDHVI 09:47
PROVIDERS: ATTEND Internal Medicine Cardiovascular Disease
DX: I25.728 Atherosclerosis of autologous artery coronary artery bypass graft(s) with other forms of angina pectoris (principal); I11.0 Hypertensive heart disease with heart failure; I50.43 Acute on chronic combined systolic (congestive) and diastolic (congestive) heart failure; R06.02 Shortness of breath; E78.5 Hyperlipidemia, unspecified; I63.9 Cerebral infarction, unspecified; Z98.61 Coronary angioplasty status
CPT/HCPCS: G0166

== ENCOUNTER → 2020-01-22 | Outpatient (CLI) | payer MEDICARE ==
[2020-01-22 10:45] VITALS: BP 129/80
[2020-01-22 10:51] VITALS: BP 120/82
== END | disposition home or self-care (01) ==
LOC: CHF HDHVI 09:43
PROVIDERS: ATTEND Internal Medicine Cardiovascular Disease
DX: I25.728 Atherosclerosis of autologous artery coronary artery bypass graft(s) with other forms of angina pectoris (principal); I11.0 Hypertensive heart disease with heart failure; I50.43 Acute on chronic combined systolic (congestive) and diastolic (congestive) heart failure; E78.5 Hyperlipidemia, unspecified; R06.02 Shortness of breath; I63.9 Cerebral infarction, unspecified; Z98.61 Coronary angioplasty status
CPT/HCPCS: G0166

== ENCOUNTER → 2020-02-01 | Outpatient (CLI) | payer MEDICARE ==
[2020-02-01 11:13] VITALS: BP 143/78
--- NOTE | 2020-02-01 11:14 | NUR ---
Signature Attestation Statement: I MARY LOPEZ performed this procedure EECP on this patient. Addendum: 02/01/20 at 1115 by MARY LOPEZ HDHI2 Amended: Links added.
--- NOTE | 2020-02-01 11:14 | NUR ---
Signature Attestation Statement: I MARY LOPEZ performed this procedure EECP on this patient. Addendum: 02/01/20 at 1114 by MARY LOPEZ [email or web address] Amended: Links added.
--- NOTE | 2020-02-01 11:16 | NUR ---
Signature Attestation Statement: I MARY LOPEZ performed this procedure EECP on this patient. Addendum: 02/01/20 at 1116 by MARY LOPEZ HDHI2 Amended: Links added.
[2020-02-01 11:22] VITALS: BP 145/81
--- NOTE | 2020-02-01 11:22 | NUR ---
Signature Attestation Statement: I MARY LOPEZ performed this procedure EECP on this patient. Addendum: 02/01/20 at 1122 by MARY LOPEZ HDHI2 Amended: Links added.
--- NOTE | 2020-02-01 11:23 | NUR ---
Signature Attestation Statement: I MARY LOPEZ performed this procedure EECP on this patient. Addendum: 02/01/20 at 1123 by MARY LOPEZ HDHI2 Amended: Links added.
== END | disposition home or self-care (01) ==
LOC: CHF HDHVI 09:36
PROVIDERS: ATTEND Internal Medicine Cardiovascular Disease
DX: R94.4 Abnormal results of kidney function studies (principal); I25.728 Atherosclerosis of autologous artery coronary artery bypass graft(s) with other forms of angina pectoris
CPT/HCPCS: 36415; 82565; G0166

== ENCOUNTER → 2020-02-03 | Outpatient (CLI) | payer MEDICARE ==
[~2020-02-03] MED LIST changes: +IOHEXOL 350 MG/ML 100ML IJ ONE
[2020-02-03 10:35] VITALS: BP 122/77
[2020-02-03 10:49] VITALS: BP 118/80
[2020-02-03 11:15] VITALS: BP 108/69
[2020-02-03 11:45] VITALS: BP 139/76
== END | disposition home or self-care (01) ==
LOC: CHF HDHVI 09:45
PROVIDERS: ATTEND Internal Medicine Cardiovascular Disease
DX: I25.728 Atherosclerosis of autologous artery coronary artery bypass graft(s) with other forms of angina pectoris (principal); I50.43 Acute on chronic combined systolic (congestive) and diastolic (congestive) heart failure; R91.8 Other nonspecific abnormal finding of lung field; M47.819 Spondylosis without myelopathy or radiculopathy, site unspecified; K44.9 Diaphragmatic hernia without obstruction or gangrene; N28.1 Cyst of kidney, acquired; I70.0 Atherosclerosis of aorta; I25.10 Atherosclerotic heart disease of native coronary artery without angina pectoris; R05 Cough; Z95.0 Presence of cardiac pacemaker; Z90.49 Acquired absence of other specified parts of digestive tract
CPT/HCPCS: 71260; G0166; G0463; Q9967

== ENCOUNTER → 2020-02-10 | Outpatient (CLI) | payer MEDICARE ==
[~2020-02-10] MED LIST changes: -IOHEXOL 350 MG/ML 100ML IJ ONE
[2020-02-10 12:05] VITALS: BP 136/89
--- NOTE | 2020-02-10 12:05 | NUR ---
Signature Attestation Statement: I MARY LOPEZ performed this procedure EECP on this patient. Addendum: 02/10/20 at 1206 by MARY LOPEZ [email or web address] Amended: Links added.
--- NOTE | 2020-02-10 12:10 | NUR ---
Signature Attestation Statement: I MARY LOPEZ performed this procedure EECP on this patient. Addendum: 02/10/20 at 1211 by MARY LOPEZ [email or web address] Amended: Links added.
--- NOTE | 2020-02-10 12:10 | NUR ---
Signature Attestation Statement: I MARY LOPEZ performed this procedure EECP on this patient. Addendum: 02/10/20 at 1210 by MARY LOPEZ [email or web address] Amended: Links added.
[2020-02-10 12:21] VITALS: BP 133/87
--- NOTE | 2020-02-10 12:21 | NUR ---
Signature Attestation Statement: I MARY LOPEZ performed this procedure EECP on this patient. Addendum: 02/10/20 at 1221 by MARY LOPEZ [email or web address] Amended: Links added.
--- NOTE | 2020-02-10 12:22 | NUR ---
Signature Attestation Statement: I MARY LOPEZ performed this procedure EECP on this patient. Addendum: 02/10/20 at 1222 by MARY LOPEZ [email or web address] Amended: Links added.
== END | disposition home or self-care (01) ==
LOC: CHF HDHVI 09:39
PROVIDERS: ATTEND Internal Medicine Cardiovascular Disease
DX: I25.728 Atherosclerosis of autologous artery coronary artery bypass graft(s) with other forms of angina pectoris (principal); I50.43 Acute on chronic combined systolic (congestive) and diastolic (congestive) heart failure; I63.9 Cerebral infarction, unspecified; R06.02 Shortness of breath; Z98.61 Coronary angioplasty status
CPT/HCPCS: G0166

== ENCOUNTER → 2020-02-12 | Outpatient (CLI) | payer MEDICARE ==
[2020-02-12 10:21] VITALS: BP 143/85
--- NOTE | 2020-02-12 10:22 | NUR ---
Signature Attestation Statement: I MRAY LOPEZ performed this procedure EECP on this patient. Addendum: 02/12/20 at 1023 by MARY LOPEZ [email or web address] Amended: Links added.
--- NOTE | 2020-02-12 10:22 | NUR ---
Signature Attestation Statement: I MARY LOPEZ performed this procedure EECP on this patient. Addendum: 02/12/20 at 1022 by MARY LOPEZ [email or web address] Amended: Links added.
--- NOTE | 2020-02-12 10:23 | NUR ---
Signature Attestation Statement: I MARY LOPEZ performed this procedure EECP on this patient. Addendum: 02/12/20 at 1023 by MARY LOPEZ [email or web address] Amended: Links added.
--- NOTE | 2020-02-12 10:50 | NUR ---
Signature Attestation Statement: I MARY LOPEZ performed this procedure EECP on this patient. Addendum: 02/12/20 at 1051 by MARY LOPEZ [email or web address] Amended: Links added.
[2020-02-12 10:51] VITALS: BP 137/89
--- NOTE | 2020-02-12 11:02 | NUR ---
Signature Attestation Statement: I MARY LOPEZ performed this procedure EECP on this patient. Addendum: 02/12/20 at 1102 by MARY LOPEZ [email or web address] Amended: Links added.
== END | disposition home or self-care (01) ==
LOC: CHF HDHVI 09:43
PROVIDERS: ATTEND Internal Medicine Cardiovascular Disease
DX: I25.728 Atherosclerosis of autologous artery coronary artery bypass graft(s) with other forms of angina pectoris (principal); I11.0 Hypertensive heart disease with heart failure; I50.43 Acute on chronic combined systolic (congestive) and diastolic (congestive) heart failure; E78.5 Hyperlipidemia, unspecified; I63.9 Cerebral infarction, unspecified; R06.02 Shortness of breath; Z98.61 Coronary angioplasty status
CPT/HCPCS: G0166

== ENCOUNTER → 2020-02-17 | Outpatient (CLI) | payer MEDICARE ==
[2020-02-17 10:21] VITALS: BP 139/88
--- NOTE | 2020-02-17 10:22 | NUR ---
Signature Attestation Statement: I MARY LOPEZ performed this procedure EECP on this patient. Addendum: 02/17/20 at 1023 by MARY LOPEZ [email or web address] Amended: Links added.
--- NOTE | 2020-02-17 10:22 | NUR ---
Signature Attestation Statement: I MARY LOPEZ performed this procedure EECP on this patient. Addendum: 02/17/20 at 1022 by MARY LOPEZ [email or web address] Amended: Links added.
--- NOTE | 2020-02-17 11:20 | NUR ---
Signature Attestation Statement: I MARY LOPEZ performed this procedure EECP on this patient. Addendum: 02/17/20 at 1121 by MARY LOPEZ [email or web address] Amended: Links added.
[2020-02-17 11:21] VITALS: BP 132/84
== END | disposition home or self-care (01) ==
LOC: CHF HDHVI 09:49
PROVIDERS: ATTEND Internal Medicine Cardiovascular Disease
DX: I25.728 Atherosclerosis of autologous artery coronary artery bypass graft(s) with other forms of angina pectoris (principal); I11.0 Hypertensive heart disease with heart failure; I50.43 Acute on chronic combined systolic (congestive) and diastolic (congestive) heart failure; E78.5 Hyperlipidemia, unspecified; I63.9 Cerebral infarction, unspecified; R06.02 Shortness of breath; Z98.61 Coronary angioplasty status
CPT/HCPCS: G0166

== ENCOUNTER → 2020-02-19 | Outpatient (CLI) | payer MEDICARE ==
[2020-02-19 09:59] VITALS: BP 131/83
[2020-02-19 10:31] VITALS: BP 137/91
== END | disposition home or self-care (01) ==
LOC: CHF HDHVI 09:26
PROVIDERS: ATTEND Internal Medicine Cardiovascular Disease
DX: I25.728 Atherosclerosis of autologous artery coronary artery bypass graft(s) with other forms of angina pectoris (principal); I11.0 Hypertensive heart disease with heart failure; I50.43 Acute on chronic combined systolic (congestive) and diastolic (congestive) heart failure; E78.5 Hyperlipidemia, unspecified; I63.9 Cerebral infarction, unspecified; R06.02 Shortness of breath; Z98.61 Coronary angioplasty status
CPT/HCPCS: G0166

== ENCOUNTER → 2020-02-24 | Outpatient (CLI) | payer MEDICARE ==
[~2020-02-24] MED LIST changes: +READI-CAT 2 (BARIUM SULF)(VANILLA SMOOTHIE) 450ML ONE
[2020-02-24 12:01] LABS: Albumin 3.6 g/dL (3.4-5.0); Anion Gap 5 (5-15); Blood Urea Nitrogen 17 mg/dL (7-18); Calcium 9.1 mg/dL (8.5-10.1); Carbon Dioxide 24 mmol/L (21-32); Chloride 107 mmol/L (98-107); Glucose 97 mg/dL (74-106); Potassium 4.2 mmol/L (3.5-5.1); Sodium 136 mmol/L (136-145)
[2020-02-24 12:09] LABS: Alanine Aminotransferase 33 U/L (16-61); Alkaline Phosphatase 94 U/L (45-117); Aspartate Aminotransferase 22 U/L (15-37); BUN/Creatinine Ratio 14.5; Bilirubin, Total 1.4 mg/dL (0.2-1.0); GFR African American 78 mL/min; GFR Non-African American 65 mL/min
[2020-02-24 12:12] LABS: Basophils # (auto) 0.1 10 ^3/uL (0-0.2); Basophils % (auto) 1.9 % (0.0-2.0); Eosinophils # (auto) 0.1 10 ^3/uL (0-0.8); Eosinophils % (auto) 1.4 % (0.0-7.0); Hematocrit 49.5 % (41.0-53.0); Hemoglobin 16.3 g/dL (13.5-17.5); Lymphocytes # (auto) 0.9 10 ^3/uL (0.4-5.4); Lymphocytes % (auto) 14.6 % (10.0-50.0); Mean Corpuscular Volume 90.8 fL (80.0-100.0); Monocytes # (auto) 0.6 10 ^3/uL (0-1.3); Monocytes % (auto) 9.5 % (0.0-12.0); Neutrophils # (auto) 4.5 10 ^3/uL (1.6-8.6); Neutrophils % (auto) 72.6 % (37.0-80.0); Nucleated Red Blood Cells % 0.1 %; Platelet Count (auto) 255 10^3/uL (140-450); Red Blood Cells 5.45 10^6/uL (4.5-5.90); White Blood Cell 6.2 10^3/uL (4.4-10.8)
== END | disposition home or self-care (01) ==
LOC: Rad HDHVI 10:36
PROVIDERS: ATTEND Internal Medicine Cardiovascular Disease
DX: K57.30 Diverticulosis of large intestine without perforation or abscess without bleeding (principal); K44.9 Diaphragmatic hernia without obstruction or gangrene; K42.9 Umbilical hernia without obstruction or gangrene; I70.0 Atherosclerosis of aorta; M43.17 Spondylolisthesis, lumbosacral region; D64.9 Anemia, unspecified; M47.819 Spondylosis without myelopathy or radiculopathy, site unspecified; I10 Essential (primary) hypertension; I20.9 Angina pectoris, unspecified; R10.9 Unspecified abdominal pain; Z90.49 Acquired absence of other specified parts of digestive tract
CPT/HCPCS: 36415; 74176; 80053; 84484; 85025

== ENCOUNTER → 2020-02-29 | Outpatient (CLI) | payer MEDICARE ==
[~2020-02-29] MED LIST changes: -READI-CAT 2 (BARIUM SULF)(VANILLA SMOOTHIE) 450ML ONE
[2020-02-29 10:19] VITALS: BP 136/77
[2020-02-29 10:54] VITALS: BP 131/79
== END | disposition home or self-care (01) ==
LOC: CHF HDHVI 09:42
PROVIDERS: ATTEND Internal Medicine Cardiovascular Disease
DX: I25.728 Atherosclerosis of autologous artery coronary artery bypass graft(s) with other forms of angina pectoris (principal); I11.0 Hypertensive heart disease with heart failure; I50.43 Acute on chronic combined systolic (congestive) and diastolic (congestive) heart failure; I63.9 Cerebral infarction, unspecified; E78.5 Hyperlipidemia, unspecified; R06.02 Shortness of breath; Z98.61 Coronary angioplasty status
CPT/HCPCS: G0166

== ENCOUNTER → 2020-03-02 | Outpatient (CLI) | payer MEDICARE ==
[2020-03-02 10:22] VITALS: BP 125/75
[2020-03-02 10:49] VITALS: BP 116/72
== END | disposition home or self-care (01) ==
LOC: CHF HDHVI 09:47
PROVIDERS: ATTEND Internal Medicine Cardiovascular Disease
DX: I25.728 Atherosclerosis of autologous artery coronary artery bypass graft(s) with other forms of angina pectoris (principal); I11.0 Hypertensive heart disease with heart failure; I50.43 Acute on chronic combined systolic (congestive) and diastolic (congestive) heart failure; E78.5 Hyperlipidemia, unspecified; I63.9 Cerebral infarction, unspecified; R06.02 Shortness of breath; Z98.61 Coronary angioplasty status
CPT/HCPCS: G0166

== ENCOUNTER → 2020-03-07 | Outpatient (CLI) | payer MEDICARE ==
[2020-03-07 10:21] VITALS: BP 133/83
[2020-03-07 10:55] VITALS: BP 134/85
== END | disposition home or self-care (01) ==
LOC: CHF HDHVI 09:42
PROVIDERS: ATTEND Internal Medicine Cardiovascular Disease
DX: I25.728 Atherosclerosis of autologous artery coronary artery bypass graft(s) with other forms of angina pectoris (principal); I11.0 Hypertensive heart disease with heart failure; I50.43 Acute on chronic combined systolic (congestive) and diastolic (congestive) heart failure; E78.5 Hyperlipidemia, unspecified; I63.9 Cerebral infarction, unspecified; R06.02 Shortness of breath; Z98.61 Coronary angioplasty status
CPT/HCPCS: G0166

== ENCOUNTER → 2020-03-09 | Outpatient (CLI) | payer MEDICARE ==
[2020-03-09 10:01] VITALS: BP 135/76
[2020-03-09 10:42] VITALS: BP 134/88
== END | disposition home or self-care (01) ==
LOC: CHF HDHVI 09:27
PROVIDERS: ATTEND Internal Medicine Cardiovascular Disease
DX: I25.728 Atherosclerosis of autologous artery coronary artery bypass graft(s) with other forms of angina pectoris (principal); I11.0 Hypertensive heart disease with heart failure; I50.43 Acute on chronic combined systolic (congestive) and diastolic (congestive) heart failure; I63.9 Cerebral infarction, unspecified; E78.5 Hyperlipidemia, unspecified; Z98.61 Coronary angioplasty status
CPT/HCPCS: G0166

== ENCOUNTER → 2020-03-16 | Outpatient (CLI) | payer MEDICARE ==
[2020-03-16 10:19] VITALS: BP 134/81
[2020-03-16 10:55] VITALS: BP 124/82
== END | disposition home or self-care (01) ==
LOC: CHF HDHVI 09:51
PROVIDERS: ATTEND Internal Medicine Cardiovascular Disease
DX: I25.728 Atherosclerosis of autologous artery coronary artery bypass graft(s) with other forms of angina pectoris (principal); I11.0 Hypertensive heart disease with heart failure; I50.43 Acute on chronic combined systolic (congestive) and diastolic (congestive) heart failure; I63.9 Cerebral infarction, unspecified; E78.5 Hyperlipidemia, unspecified; Z98.61 Coronary angioplasty status
CPT/HCPCS: G0166

== ENCOUNTER → 2020-03-18 | Outpatient (CLI) | payer MEDICARE ==
[2020-03-18 10:16] VITALS: BP 137/80
[2020-03-18 10:48] VITALS: BP 146/90
== END | disposition home or self-care (01) ==
LOC: CHF HDHVI 09:42
PROVIDERS: ATTEND Internal Medicine Cardiovascular Disease
DX: I25.728 Atherosclerosis of autologous artery coronary artery bypass graft(s) with other forms of angina pectoris (principal); I11.0 Hypertensive heart disease with heart failure; I50.43 Acute on chronic combined systolic (congestive) and diastolic (congestive) heart failure; I63.9 Cerebral infarction, unspecified; E78.5 Hyperlipidemia, unspecified; R06.02 Shortness of breath; Z98.61 Coronary angioplasty status
CPT/HCPCS: G0166

== ENCOUNTER → 2020-03-21 | Outpatient (CLI) | payer MEDICARE ==
[~2020-03-21] MED LIST changes: +LOSA25TA2; -LOSA25TA8
[2020-03-21 10:26] VITALS: BP 146/90
[2020-03-21 10:54] VITALS: BP 149/96
== END | disposition home or self-care (01) ==
LOC: CHF HDHVI 09:48
PROVIDERS: ATTEND Internal Medicine Cardiovascular Disease
DX: I25.728 Atherosclerosis of autologous artery coronary artery bypass graft(s) with other forms of angina pectoris (principal); I11.0 Hypertensive heart disease with heart failure; I50.43 Acute on chronic combined systolic (congestive) and diastolic (congestive) heart failure; I63.9 Cerebral infarction, unspecified; R06.02 Shortness of breath; E78.5 Hyperlipidemia, unspecified; Z98.61 Coronary angioplasty status
CPT/HCPCS: G0166

== ENCOUNTER → 2020-03-23 | Outpatient (CLI) | payer MEDICARE ==
[2020-03-23 09:55] VITALS: BP 135/87
[2020-03-23 10:27] VITALS: BP 136/88
== END | disposition home or self-care (01) ==
LOC: CHF HDHVI 09:23
PROVIDERS: ATTEND Internal Medicine Cardiovascular Disease
DX: I25.728 Atherosclerosis of autologous artery coronary artery bypass graft(s) with other forms of angina pectoris (principal); I11.0 Hypertensive heart disease with heart failure; I50.43 Acute on chronic combined systolic (congestive) and diastolic (congestive) heart failure; I63.9 Cerebral infarction, unspecified; R06.02 Shortness of breath; E78.5 Hyperlipidemia, unspecified; Z98.61 Coronary angioplasty status
CPT/HCPCS: G0166

== ENCOUNTER → 2020-08-15 | Outpatient (CLI) | payer MEDICARE | END | disposition home or self-care (01) | LOC: Rad HDHVI 10:00 | PROVIDERS: ATTEND Internal Medicine Cardiovascular Disease | DX: R00.2 Palpitations (principal); R07.89 Other chest pain | CPT/HCPCS: 93306 ==

== ENCOUNTER → 2021-06-09 | Outpatient (CLI) | payer MEDICARE, BC ==
[2021-06-09 12:35] VITALS: BP 142/84
[2021-06-09 13:03] VITALS: BP 142/70
== END | disposition home or self-care (01) ==
LOC: CHF HDHVI 10:03
PROVIDERS: ATTEND Internal Medicine Cardiovascular Disease
DX: I11.0 Hypertensive heart disease with heart failure (principal); I50.42 Chronic combined systolic (congestive) and diastolic (congestive) heart failure; I25.118 Atherosclerotic heart disease of native coronary artery with other forms of angina pectoris; G47.30 Sleep apnea, unspecified; E66.9 Obesity, unspecified; E78.5 Hyperlipidemia, unspecified; R07.89 Other chest pain; Z95.5 Presence of coronary angioplasty implant and graft; Z95.0 Presence of cardiac pacemaker
CPT/HCPCS: G0166

== ENCOUNTER → 2021-06-26 | Outpatient (CLI) | payer MEDICARE, BC ==
[2021-06-26 10:33] VITALS: BP 126/74
[2021-06-26 11:05] VITALS: BP 112/70
== END | disposition home or self-care (01) ==
LOC: CHF HDHVI 09:54
PROVIDERS: ATTEND Internal Medicine Cardiovascular Disease
DX: I11.0 Hypertensive heart disease with heart failure (principal); I50.42 Chronic combined systolic (congestive) and diastolic (congestive) heart failure; I25.118 Atherosclerotic heart disease of native coronary artery with other forms of angina pectoris; E78.5 Hyperlipidemia, unspecified; Z95.0 Presence of cardiac pacemaker
CPT/HCPCS: G0166

== ENCOUNTER → 2021-06-28 | Outpatient (CLI) | payer MEDICARE, BC ==
[2021-06-28 10:29] VITALS: BP 120/76
[2021-06-28 11:04] VITALS: BP 122/82
== END | disposition home or self-care (01) ==
LOC: CHF HDHVI 10:03
PROVIDERS: ATTEND Internal Medicine Cardiovascular Disease
DX: I11.0 Hypertensive heart disease with heart failure (principal); I50.42 Chronic combined systolic (congestive) and diastolic (congestive) heart failure; I25.118 Atherosclerotic heart disease of native coronary artery with other forms of angina pectoris; I25.42 Coronary artery dissection; I10 Essential (primary) hypertension; E78.5 Hyperlipidemia, unspecified; Z95.0 Presence of cardiac pacemaker
CPT/HCPCS: G0166

== ENCOUNTER → 2021-07-03 | Outpatient (CLI) | payer MEDICARE, BC ==
[2021-07-03 12:08] VITALS: BP 120/58
[2021-07-03 12:15] VITALS: BP 120/72
== END | disposition home or self-care (01) ==
LOC: CHF HDHVI 10:04
PROVIDERS: ATTEND Internal Medicine Cardiovascular Disease
DX: I25.118 Atherosclerotic heart disease of native coronary artery with other forms of angina pectoris (principal); I11.0 Hypertensive heart disease with heart failure; I50.42 Chronic combined systolic (congestive) and diastolic (congestive) heart failure; G47.30 Sleep apnea, unspecified; E66.9 Obesity, unspecified; E78.5 Hyperlipidemia, unspecified; Z95.0 Presence of cardiac pacemaker; Z95.5 Presence of coronary angioplasty implant and graft
CPT/HCPCS: G0166

== ENCOUNTER → 2021-07-05 | Outpatient (CLI) | payer MEDICARE, BC ==
[2021-07-05 12:04] VITALS: BP 120/78
[2021-07-05 12:12] VITALS: BP 122/78
== END | disposition home or self-care (01) ==
LOC: CHF HDHVI 10:05
PROVIDERS: ATTEND Internal Medicine Cardiovascular Disease
DX: I25.118 Atherosclerotic heart disease of native coronary artery with other forms of angina pectoris (principal); I11.0 Hypertensive heart disease with heart failure; I50.42 Chronic combined systolic (congestive) and diastolic (congestive) heart failure; G47.30 Sleep apnea, unspecified; E78.5 Hyperlipidemia, unspecified; R07.89 Other chest pain; Z95.0 Presence of cardiac pacemaker; Z95.5 Presence of coronary angioplasty implant and graft
CPT/HCPCS: G0166

== ENCOUNTER → 2021-07-10 | Outpatient (CLI) | payer MEDICARE, BC ==
[2021-07-10 10:40] VITALS: BP 120/64
[2021-07-10 11:11] VITALS: BP 120/72
== END | disposition home or self-care (01) ==
LOC: CHF HDHVI 09:57
PROVIDERS: ATTEND Internal Medicine Cardiovascular Disease
DX: I25.118 Atherosclerotic heart disease of native coronary artery with other forms of angina pectoris (principal); I11.0 Hypertensive heart disease with heart failure; I50.42 Chronic combined systolic (congestive) and diastolic (congestive) heart failure; G47.30 Sleep apnea, unspecified; E66.9 Obesity, unspecified; E78.5 Hyperlipidemia, unspecified; R07.89 Other chest pain; Z95.0 Presence of cardiac pacemaker; Z95.5 Presence of coronary angioplasty implant and graft
CPT/HCPCS: G0166

== ENCOUNTER → 2021-07-12 | Outpatient (CLI) | payer MEDICARE, BC ==
[2021-07-12 11:59] VITALS: BP 110/70
[2021-07-12 12:05] VITALS: BP 112/74
== END | disposition home or self-care (01) ==
LOC: CHF HDHVI 10:15
PROVIDERS: ATTEND Internal Medicine Cardiovascular Disease
DX: I50.42 Chronic combined systolic (congestive) and diastolic (congestive) heart failure (principal); I25.118 Atherosclerotic heart disease of native coronary artery with other forms of angina pectoris; E66.9 Obesity, unspecified; E78.5 Hyperlipidemia, unspecified; G47.30 Sleep apnea, unspecified; R07.89 Other chest pain; Z95.0 Presence of cardiac pacemaker
CPT/HCPCS: G0166

== ENCOUNTER → 2021-07-24 | Outpatient (CLI) | payer MEDICARE, BC ==
[2021-07-24 11:13] VITALS: BP 132/80
[2021-07-24 11:55] VITALS: BP 120/82
== END | disposition home or self-care (01) ==
LOC: CHF HDHVI 10:00
PROVIDERS: ATTEND Internal Medicine Cardiovascular Disease
DX: I25.118 Atherosclerotic heart disease of native coronary artery with other forms of angina pectoris (principal); I11.0 Hypertensive heart disease with heart failure; I50.42 Chronic combined systolic (congestive) and diastolic (congestive) heart failure; I25.10 Atherosclerotic heart disease of native coronary artery without angina pectoris; G47.33 Obstructive sleep apnea (adult) (pediatric); E78.5 Hyperlipidemia, unspecified; E66.9 Obesity, unspecified; Z98.61 Coronary angioplasty status
CPT/HCPCS: G0166

== ENCOUNTER → 2021-07-28 | Outpatient (CLI) | payer MEDICARE, BC ==
[2021-07-28 10:59] VITALS: BP 142/86
[2021-07-28 11:24] VITALS: BP 126/90
== END | disposition home or self-care (01) ==
LOC: CHF HDHVI 10:08
PROVIDERS: ATTEND Internal Medicine Cardiovascular Disease
DX: I25.118 Atherosclerotic heart disease of native coronary artery with other forms of angina pectoris (principal); I11.0 Hypertensive heart disease with heart failure; I50.42 Chronic combined systolic (congestive) and diastolic (congestive) heart failure; G47.30 Sleep apnea, unspecified; E78.5 Hyperlipidemia, unspecified; E66.9 Obesity, unspecified; Z95.0 Presence of cardiac pacemaker; Z95.5 Presence of coronary angioplasty implant and graft
CPT/HCPCS: G0166

== ENCOUNTER → 2021-07-31 | Outpatient (CLI) | payer MEDICARE, BC ==
[2021-07-31 10:39] VITALS: BP 124/80
[2021-07-31 11:11] VITALS: BP 122/80
== END | disposition home or self-care (01) ==
LOC: CHF HDHVI 09:59
PROVIDERS: ATTEND Internal Medicine Cardiovascular Disease
DX: I25.118 Atherosclerotic heart disease of native coronary artery with other forms of angina pectoris (principal); I11.0 Hypertensive heart disease with heart failure; I50.42 Chronic combined systolic (congestive) and diastolic (congestive) heart failure; G47.30 Sleep apnea, unspecified; E66.9 Obesity, unspecified; E78.5 Hyperlipidemia, unspecified; R07.89 Other chest pain; Z95.0 Presence of cardiac pacemaker; Z95.5 Presence of coronary angioplasty implant and graft
CPT/HCPCS: G0166

== ENCOUNTER → 2021-08-02 | Outpatient (CLI) | payer MEDICARE, BC ==
[2021-08-02 12:17] VITALS: BP 120/78
[2021-08-02 12:25] VITALS: BP 122/80
== END | disposition home or self-care (01) ==
LOC: CHF HDHVI 10:04
PROVIDERS: ATTEND Internal Medicine Cardiovascular Disease
DX: I25.118 Atherosclerotic heart disease of native coronary artery with other forms of angina pectoris (principal); I11.0 Hypertensive heart disease with heart failure; I50.42 Chronic combined systolic (congestive) and diastolic (congestive) heart failure; E78.5 Hyperlipidemia, unspecified; R07.89 Other chest pain; G47.30 Sleep apnea, unspecified; E66.9 Obesity, unspecified
CPT/HCPCS: G0166

== ENCOUNTER → 2021-08-09 | Outpatient (CLI) | payer MEDICARE, BC ==
[2021-08-09 12:11] LABS: Basophils # (auto) 0.2 10 ^3/uL (0-0.2); Basophils % (auto) 2.9 % (0.0-2.0); Eosinophils # (auto) 0.2 10 ^3/uL (0-0.8); Hematocrit 45.9 % (41.0-53.0); Hemoglobin 15.4 g/dL (13.5-17.5); Lymphocytes # (auto) 1.2 10 ^3/uL (0.4-5.4); Lymphocytes % (auto) 20.8 % (10.0-50.0); Mean Corpuscular Hemoglobin 30.3 pg (28.0-32.0); Mean Corpuscular Hgb Conc. 33.5 g/dL (32.0-36.0); Mean Corpuscular Volume 90.4 fL (80.0-100.0); Monocytes # (auto) 0.6 10 ^3/uL (0-1.3); Neutrophils # (auto) 3.6 10 ^3/uL (1.6-8.6); Neutrophils % (auto) 63.3 % (37.0-80.0); Nucleated Red Blood Cells % 0.1 %; Red Blood Cells 5.08 10^6/uL (4.5-5.90); Red Cell Distribution Width 14.3 % (11.8-14.3); White Blood Cell 5.6 10^3/uL (4.4-10.8)
[2021-08-09 12:19] VITALS: BP 120/78
[2021-08-09 12:19] LABS: Urine Blood Negative /uL (Negative); Urine Specific Gravity 1.014 (1.001-1.035)
[2021-08-09 12:22] LABS: Potassium 4.2 mmol/L (3.5-5.1)
[2021-08-09 12:29] VITALS: BP 122/80
[2021-08-09 12:31] LABS: Albumin 3.4 g/dL (3.4-5.0); BUN/Creatinine Ratio 17.5; Bilirubin, Total 0.8 mg/dL (0.2-1.0); Calcium 8.6 mg/dL (8.5-10.1); Total Protein 6.7 g/dL (6.4-8.2)
[2021-08-09 12:33] LABS: Free T4 (Free Thyroxine) 0.87 ng/dL (0.89-1.76); Prostate Specific Antigen 0.88 ng/mL (0.0-4.0)
== END | disposition home or self-care (01) ==
LOC: CHF HDHVI 09:53
PROVIDERS: ATTEND Internal Medicine Cardiovascular Disease
DX: I11.0 Hypertensive heart disease with heart failure (principal); I50.42 Chronic combined systolic (congestive) and diastolic (congestive) heart failure; I25.118 Atherosclerotic heart disease of native coronary artery with other forms of angina pectoris; C61 Malignant neoplasm of prostate; D51.3 Other dietary vitamin B12 deficiency anemia; D64.9 Anemia, unspecified; E11.9 Type 2 diabetes mellitus without complications; E55.9 Vitamin D deficiency, unspecified; R00.2 Palpitations; R53.1 Weakness; R30.0 Dysuria; Z95.5 Presence of coronary angioplasty implant and graft
CPT/HCPCS: 36415; 80053; 80061; 81003; 82306; 82607; 83036; 84153; 84403; 84439; 84443; 85025; G0166

== ENCOUNTER → 2021-08-14 | Outpatient (CLI) | payer MEDICARE, BC ==
[2021-08-14 10:50] VITALS: BP 124/80
[2021-08-14 11:13] VITALS: BP 130/80
== END | disposition home or self-care (01) ==
LOC: CHF HDHVI 09:59
PROVIDERS: ATTEND Internal Medicine Cardiovascular Disease
DX: I11.0 Hypertensive heart disease with heart failure (principal); I50.42 Chronic combined systolic (congestive) and diastolic (congestive) heart failure; I25.118 Atherosclerotic heart disease of native coronary artery with other forms of angina pectoris; E66.9 Obesity, unspecified; E78.5 Hyperlipidemia, unspecified; R07.89 Other chest pain; G47.30 Sleep apnea, unspecified; Z95.5 Presence of coronary angioplasty implant and graft; Z95.0 Presence of cardiac pacemaker
CPT/HCPCS: G0166

== ENCOUNTER → 2021-08-23 | Outpatient (CLI) | payer MEDICARE, BC ==
[2021-08-23 12:42] VITALS: BP 120/68
[2021-08-23 12:49] VITALS: BP 118/62
== END | disposition home or self-care (01) ==
LOC: CHF HDHVI 10:08
PROVIDERS: ATTEND Internal Medicine Cardiovascular Disease
DX: I25.118 Atherosclerotic heart disease of native coronary artery with other forms of angina pectoris (principal); I11.0 Hypertensive heart disease with heart failure; I50.42 Chronic combined systolic (congestive) and diastolic (congestive) heart failure; E78.5 Hyperlipidemia, unspecified; R07.89 Other chest pain; G47.30 Sleep apnea, unspecified; Z95.5 Presence of coronary angioplasty implant and graft; Z95.0 Presence of cardiac pacemaker
CPT/HCPCS: G0166

== ENCOUNTER → 2021-08-30 | Outpatient (CLI) | payer MEDICARE, BC ==
[2021-08-30 10:37] VITALS: BP 114/74
[2021-08-30 11:27] VITALS: BP 114/72
== END | disposition home or self-care (01) ==
LOC: CHF HDHVI 10:08
PROVIDERS: ATTEND Internal Medicine Cardiovascular Disease
DX: I25.118 Atherosclerotic heart disease of native coronary artery with other forms of angina pectoris (principal); I11.0 Hypertensive heart disease with heart failure; I50.42 Chronic combined systolic (congestive) and diastolic (congestive) heart failure; R07.89 Other chest pain; E78.5 Hyperlipidemia, unspecified; G47.30 Sleep apnea, unspecified; E66.9 Obesity, unspecified; Z95.0 Presence of cardiac pacemaker; Z95.5 Presence of coronary angioplasty implant and graft
CPT/HCPCS: G0166

== ENCOUNTER → 2021-09-15 | Outpatient (CLI) | payer MEDICARE, BC ==
[2021-09-15 11:39] VITALS: BP 110/64
[2021-09-15 11:51] VITALS: BP 120/78
== END | disposition home or self-care (01) ==
LOC: CHF HDHVI 10:16
PROVIDERS: ATTEND Internal Medicine Cardiovascular Disease
DX: I25.118 Atherosclerotic heart disease of native coronary artery with other forms of angina pectoris (principal); R07.89 Other chest pain; E78.5 Hyperlipidemia, unspecified; I11.0 Hypertensive heart disease with heart failure; I50.42 Chronic combined systolic (congestive) and diastolic (congestive) heart failure; G47.30 Sleep apnea, unspecified; E66.9 Obesity, unspecified; Z95.0 Presence of cardiac pacemaker; Z95.5 Presence of coronary angioplasty implant and graft
CPT/HCPCS: G0166

== ENCOUNTER → 2021-09-22 | Outpatient (CLI) | payer MEDICARE, BC ==
[2021-09-22 11:26] VITALS: BP 110/64
[2021-09-22 11:33] VITALS: BP 114/72
== END | disposition home or self-care (01) ==
LOC: CHF HDHVI 10:11
PROVIDERS: ATTEND Internal Medicine Cardiovascular Disease
DX: I25.118 Atherosclerotic heart disease of native coronary artery with other forms of angina pectoris (principal); I11.0 Hypertensive heart disease with heart failure; I50.42 Chronic combined systolic (congestive) and diastolic (congestive) heart failure; G47.30 Sleep apnea, unspecified; E66.9 Obesity, unspecified; E78.5 Hyperlipidemia, unspecified; R07.89 Other chest pain; Z95.0 Presence of cardiac pacemaker; Z95.5 Presence of coronary angioplasty implant and graft
CPT/HCPCS: G0166

== ENCOUNTER → 2021-10-02 | Outpatient (CLI) | payer MEDICARE, BC ==
[2021-10-02 10:51] VITALS: BP 122/80
[2021-10-02 11:08] VITALS: BP 116/80
== END | disposition home or self-care (01) ==
LOC: CHF HDHVI 10:04
PROVIDERS: ATTEND Internal Medicine Cardiovascular Disease
DX: I11.0 Hypertensive heart disease with heart failure (principal); I50.42 Chronic combined systolic (congestive) and diastolic (congestive) heart failure; I25.118 Atherosclerotic heart disease of native coronary artery with other forms of angina pectoris; G47.30 Sleep apnea, unspecified; E66.9 Obesity, unspecified; E78.5 Hyperlipidemia, unspecified; R07.89 Other chest pain; Z95.0 Presence of cardiac pacemaker; Z95.5 Presence of coronary angioplasty implant and graft
CPT/HCPCS: G0166

== ENCOUNTER → 2021-10-11 | Outpatient (CLI) | payer MEDICARE, BC ==
[2021-10-11 12:41] VITALS: BP 110/70
[2021-10-11 12:49] VITALS: BP 116/72
== END | disposition home or self-care (01) ==
LOC: CHF HDHVI 10:00
PROVIDERS: ATTEND Internal Medicine Cardiovascular Disease
DX: I25.118 Atherosclerotic heart disease of native coronary artery with other forms of angina pectoris (principal); I11.0 Hypertensive heart disease with heart failure; I50.42 Chronic combined systolic (congestive) and diastolic (congestive) heart failure; R07.89 Other chest pain; G47.30 Sleep apnea, unspecified; E66.9 Obesity, unspecified; E78.5 Hyperlipidemia, unspecified; Z95.0 Presence of cardiac pacemaker
CPT/HCPCS: G0166

== ENCOUNTER → 2021-10-13 | Outpatient (CLI) | payer MEDICARE, BC ==
[2021-10-13 11:22] VITALS: BP 116/70
[2021-10-13 11:36] VITALS: BP 120/70
== END | disposition home or self-care (01) ==
LOC: CHF HDHVI 10:18
PROVIDERS: ATTEND Internal Medicine Cardiovascular Disease
DX: I25.118 Atherosclerotic heart disease of native coronary artery with other forms of angina pectoris (principal); I11.0 Hypertensive heart disease with heart failure; I50.42 Chronic combined systolic (congestive) and diastolic (congestive) heart failure; G47.30 Sleep apnea, unspecified; R07.89 Other chest pain; E78.5 Hyperlipidemia, unspecified; E66.9 Obesity, unspecified; Z95.0 Presence of cardiac pacemaker; Z95.5 Presence of coronary angioplasty implant and graft
CPT/HCPCS: G0166

== ENCOUNTER → 2021-10-16 | Outpatient (CLI) | payer MEDICARE, BC ==
[2021-10-16 11:04] VITALS: BP 116/70
[2021-10-16 11:34] VITALS: BP 110/80
== END | disposition home or self-care (01) ==
LOC: CHF HDHVI 10:09
PROVIDERS: ATTEND Internal Medicine Cardiovascular Disease
DX: I25.118 Atherosclerotic heart disease of native coronary artery with other forms of angina pectoris (principal); I11.0 Hypertensive heart disease with heart failure; I50.42 Chronic combined systolic (congestive) and diastolic (congestive) heart failure; G47.30 Sleep apnea, unspecified; R07.89 Other chest pain; E78.5 Hyperlipidemia, unspecified; E66.9 Obesity, unspecified; Z95.0 Presence of cardiac pacemaker; Z95.5 Presence of coronary angioplasty implant and graft
CPT/HCPCS: G0166

== ENCOUNTER → 2021-10-18 | Outpatient (CLI) | payer MEDICARE, BC ==
[2021-10-18 12:56] VITALS: BP 110/68
[2021-10-18 13:03] VITALS: BP 112/70
== END | disposition home or self-care (01) ==
LOC: CHF HDHVI 08:50
PROVIDERS: ATTEND Internal Medicine Cardiovascular Disease
DX: I25.118 Atherosclerotic heart disease of native coronary artery with other forms of angina pectoris (principal); I11.0 Hypertensive heart disease with heart failure; I50.42 Chronic combined systolic (congestive) and diastolic (congestive) heart failure; R07.89 Other chest pain; E78.5 Hyperlipidemia, unspecified; E66.9 Obesity, unspecified; Z95.0 Presence of cardiac pacemaker; Z95.5 Presence of coronary angioplasty implant and graft
CPT/HCPCS: G0166

== ENCOUNTER → 2021-10-20 | Outpatient (CLI) | payer MEDICARE, BC ==
[2021-10-20 10:59] VITALS: BP 108/70
[2021-10-20 11:19] VITALS: BP 110/68
== END | disposition home or self-care (01) ==
LOC: CHF HDHVI 10:16
PROVIDERS: ATTEND Internal Medicine Cardiovascular Disease
DX: I25.118 Atherosclerotic heart disease of native coronary artery with other forms of angina pectoris (principal); I11.0 Hypertensive heart disease with heart failure; I50.42 Chronic combined systolic (congestive) and diastolic (congestive) heart failure; G47.30 Sleep apnea, unspecified; E66.9 Obesity, unspecified; R07.89 Other chest pain; E78.5 Hyperlipidemia, unspecified; Z95.0 Presence of cardiac pacemaker; Z95.5 Presence of coronary angioplasty implant and graft
CPT/HCPCS: G0166

== ENCOUNTER → 2022-01-02 | Outpatient (CLI) | payer MEDICARE, BC ==
[~2022-01-02] VITALS: Ht 162.6 cm; Wt 90.7 kg
[~2022-01-02] MED LIST changes: +ADENOSINE 76 MG in GIVE UN-DILUTED 0 ML IV ONE; +ADENOSINE 90 MG/30 ML INJ IV ONE
== END | disposition home or self-care (01) ==
LOC: Rad HDHVI 08:41
PROVIDERS: ATTEND Internal Medicine Cardiovascular Disease
DX: I11.0 Hypertensive heart disease with heart failure (principal); I50.43 Acute on chronic combined systolic (congestive) and diastolic (congestive) heart failure; E78.5 Hyperlipidemia, unspecified; R06.02 Shortness of breath; I25.2 Old myocardial infarction; R07.9 Chest pain, unspecified; I25.10 Atherosclerotic heart disease of native coronary artery without angina pectoris; Z95.0 Presence of cardiac pacemaker; Z82.49 Family history of ischemic heart disease and other diseases of the circulatory system
CPT/HCPCS: 78452; 93005; 96374; 96375; A9500; J0153

== ENCOUNTER → 2022-01-05 | Outpatient (CLI) | payer MEDICARE, BC ==
[~2022-01-05] MED LIST changes: -ADENOSINE 76 MG in GIVE UN-DILUTED 0 ML IV ONE; -ADENOSINE 90 MG/30 ML INJ IV ONE
== END | disposition home or self-care (01) ==
LOC: Rad HDHVI 09:04
PROVIDERS: ATTEND Internal Medicine Cardiovascular Disease
DX: I34.0 Nonrheumatic mitral (valve) insufficiency (principal); E78.5 Hyperlipidemia, unspecified; I11.9 Hypertensive heart disease without heart failure
CPT/HCPCS: 93306

== ENCOUNTER → 2022-01-10 | Outpatient (CLI) | payer MEDICARE, BC | END | disposition home or self-care (01) | LOC: Rad HDHVI 10:06 | PROVIDERS: ATTEND Internal Medicine Cardiovascular Disease | DX: I10 Essential (primary) hypertension (principal); E78.5 Hyperlipidemia, unspecified | CPT/HCPCS: 93880 ==

== ENCOUNTER → 2022-02-13 | Outpatient (CLI) | payer MEDICARE, BC ==
[2022-02-13 11:35] LABS: Basophils # (auto) 0.1 10 ^3/uL (0-0.2); Eosinophils # (auto) 0.2 10 ^3/uL (0-0.8); Eosinophils % (auto) 3.6 % (0.0-7.0); Hematocrit 49.1 % (41.0-53.0); Lymphocytes # (auto) 1.4 10 ^3/uL (0.4-5.4); Lymphocytes % (auto) 23.2 % (10.0-50.0); Mean Corpuscular Hemoglobin 29.8 pg (28.0-32.0); Mean Corpuscular Hgb Conc. 32.6 g/dL (32.0-36.0); Mean Corpuscular Volume 91.3 fL (80.0-100.0); Monocytes # (auto) 0.7 10 ^3/uL (0-1.3); Monocytes % (auto) 10.8 % (0.0-12.0); Neutrophils # (auto) 3.7 10 ^3/uL (1.6-8.6); Neutrophils % (auto) 60.4 % (37.0-80.0); Nucleated Red Blood Cells % 0.1 %; Red Blood Cells 5.38 10^6/uL (4.5-5.90); Red Cell Distribution Width 14.3 % (11.8-14.3); White Blood Cell 6.2 10^3/uL (4.4-10.8)
[2022-02-13 11:37] LABS: Urine Blood Negative /uL (Negative); Urine Specific Gravity 1.022 (1.001-1.035)
[2022-02-13 11:57] LABS: Potassium 4.4 mmol/L (3.5-5.1)
[2022-02-13 12:05] LABS: Albumin 3.5 g/dL (3.4-5.0); BUN/Creatinine Ratio 15.1; Bilirubin, Total 0.6 mg/dL (0.2-1.0); Calcium 9.2 mg/dL (8.5-10.1); Free T4 (Free Thyroxine) 1.04 ng/dL (0.89-1.76); Prostate Specific Antigen 0.98 ng/mL (0.0-4.0); Total Protein 6.3 g/dL (6.4-8.2)
== END | disposition home or self-care (01) ==
LOC: LAB 09:22
PROVIDERS: ATTEND Internal Medicine Cardiovascular Disease
DX: I10 Essential (primary) hypertension (principal); E55.9 Vitamin D deficiency, unspecified
CPT/HCPCS: 36415; 80053; 80061; 81003; 82306; 82607; 83036; 84153; 84403; 84439; 84443; 85025

== ENCOUNTER → 2022-09-28 | Outpatient (CLI) | payer MEDICARE, BC ==
[~2022-09-28] MED LIST changes: -LOSA25TA2; +LOSA25TA5
== END | disposition home or self-care (01) ==
LOC: Rad HDHVI 13:01
PROVIDERS: ATTEND Internal Medicine Cardiovascular Disease
DX: I34.0 Nonrheumatic mitral (valve) insufficiency (principal); I10 Essential (primary) hypertension; R06.02 Shortness of breath
CPT/HCPCS: 93306

== ENCOUNTER → 2022-10-04 | Outpatient (CLI) | payer MEDICARE, BC ==
[2022-10-04 10:28] VITALS: BP 130/76; PULSE 60
[2022-10-04 11:29] VITALS: BP 124/78; PULSE 64
== END | disposition home or self-care (01) ==
LOC: CHF HDHVI 09:51
PROVIDERS: ATTEND Internal Medicine Cardiovascular Disease
DX: I11.0 Hypertensive heart disease with heart failure (principal); I50.42 Chronic combined systolic (congestive) and diastolic (congestive) heart failure; I25.118 Atherosclerotic heart disease of native coronary artery with other forms of angina pectoris; R06.02 Shortness of breath; R00.2 Palpitations
CPT/HCPCS: G0166

== ENCOUNTER → 2022-10-08 | Outpatient (CLI) | payer MEDICARE, BC ==
[2022-10-08 10:51] VITALS: BP_SYST 102; BP_SYST 94; BP_DIAS 50; BP_DIAS 56
== END | disposition home or self-care (01) ==
LOC: CHF HDHVI 09:59
PROVIDERS: ATTEND Internal Medicine Cardiovascular Disease
DX: I11.0 Hypertensive heart disease with heart failure (principal); I50.42 Chronic combined systolic (congestive) and diastolic (congestive) heart failure; I25.118 Atherosclerotic heart disease of native coronary artery with other forms of angina pectoris; R06.02 Shortness of breath; R00.2 Palpitations; L02.419 Cutaneous abscess of limb, unspecified
CPT/HCPCS: G0166

== ENCOUNTER → 2022-10-10 | Outpatient (CLI) | payer MEDICARE, BC ==
[2022-10-10 10:44] VITALS: BP 124/78; PULSE 80
[2022-10-10 11:39] VITALS: BP 108/66; PULSE 80
== END | disposition home or self-care (01) ==
LOC: CHF HDHVI 10:18
PROVIDERS: ATTEND Internal Medicine Cardiovascular Disease
DX: I25.118 Atherosclerotic heart disease of native coronary artery with other forms of angina pectoris (principal); I11.0 Hypertensive heart disease with heart failure; I50.42 Chronic combined systolic (congestive) and diastolic (congestive) heart failure; L02.419 Cutaneous abscess of limb, unspecified; R06.02 Shortness of breath; R00.2 Palpitations
CPT/HCPCS: G0166

== ENCOUNTER → 2022-10-12 | Outpatient (CLI) | payer MEDICARE, BC ==
[2022-10-12 10:29] VITALS: BP 114/80; PULSE 80
[2022-10-12 11:48] VITALS: BP 130/86; PULSE 80
== END | disposition home or self-care (01) ==
LOC: CHF HDHVI 10:11
PROVIDERS: ATTEND Internal Medicine Cardiovascular Disease
DX: I25.118 Atherosclerotic heart disease of native coronary artery with other forms of angina pectoris (principal); L02.419 Cutaneous abscess of limb, unspecified; R06.02 Shortness of breath; I10 Essential (primary) hypertension; R00.2 Palpitations
CPT/HCPCS: G0166

== ENCOUNTER → 2022-10-15 | Outpatient (CLI) | payer MEDICARE, BC ==
[~2022-10-15] VITALS: Ht 162.6 cm; Wt 93.0 kg
[~2022-10-15] MED LIST changes: +ADENOSINE 78 MG in GIVE UN-DILUTED 0 ML IV ONE; +ADENOSINE 90 MG/30 ML INJ IV ONE
== END | disposition home or self-care (01) ==
LOC: Rad HDHVI 13:13
PROVIDERS: ATTEND Internal Medicine Cardiovascular Disease
DX: I25.10 Atherosclerotic heart disease of native coronary artery without angina pectoris (principal); R06.02 Shortness of breath; R00.2 Palpitations; I25.2 Old myocardial infarction; I10 Essential (primary) hypertension; E78.5 Hyperlipidemia, unspecified; Z95.0 Presence of cardiac pacemaker; Z82.49 Family history of ischemic heart disease and other diseases of the circulatory system
CPT/HCPCS: 78452; 93017; 96374; A9500; J0153

== ENCOUNTER → 2022-10-29 | Outpatient (CLI) | payer MEDICARE, BC ==
[~2022-10-29] MED LIST changes: -ADENOSINE 78 MG in GIVE UN-DILUTED 0 ML IV ONE; -ADENOSINE 90 MG/30 ML INJ IV ONE
[2022-10-29 10:43] VITALS: BP 110/56; PULSE 80
[2022-10-29 11:48] VITALS: BP 114/60; PULSE 74
== END | disposition home or self-care (01) ==
LOC: CHF HDHVI 10:14
PROVIDERS: ATTEND Internal Medicine Cardiovascular Disease
DX: I25.118 Atherosclerotic heart disease of native coronary artery with other forms of angina pectoris (principal); L02.419 Cutaneous abscess of limb, unspecified; R06.02 Shortness of breath; R00.2 Palpitations; I11.0 Hypertensive heart disease with heart failure; I50.42 Chronic combined systolic (congestive) and diastolic (congestive) heart failure
CPT/HCPCS: G0166

== ENCOUNTER → 2022-11-07 | Outpatient (CLI) | payer MEDICARE, BC ==
[2022-11-07 10:59] VITALS: BP 110/78; PULSE 74
[2022-11-07 11:49] VITALS: BP 106/84; PULSE 72
== END | disposition home or self-care (01) ==
LOC: CHF HDHVI 10:10
PROVIDERS: ATTEND Internal Medicine Cardiovascular Disease
DX: I25.118 Atherosclerotic heart disease of native coronary artery with other forms of angina pectoris (principal); L02.419 Cutaneous abscess of limb, unspecified; R06.02 Shortness of breath; I10 Essential (primary) hypertension; R00.2 Palpitations
CPT/HCPCS: G0166

== ENCOUNTER → 2022-11-14 | Outpatient (CLI) | payer MEDICARE, BC ==
[2022-11-14 10:50] VITALS: BP 110/74; PULSE 75
[2022-11-14 11:38] VITALS: BP 106/76; PULSE 80
== END | disposition home or self-care (01) ==
LOC: CHF HDHVI 10:12
PROVIDERS: ATTEND Internal Medicine Cardiovascular Disease
DX: I11.0 Hypertensive heart disease with heart failure (principal); I50.42 Chronic combined systolic (congestive) and diastolic (congestive) heart failure; I25.118 Atherosclerotic heart disease of native coronary artery with other forms of angina pectoris; R06.02 Shortness of breath; R00.2 Palpitations; L02.419 Cutaneous abscess of limb, unspecified
CPT/HCPCS: G0166

== ENCOUNTER → 2022-11-21 | Outpatient (CLI) | payer MEDICARE, BC ==
[2022-11-21 10:58] VITALS: BP 104/60; PULSE 72
[2022-11-21 11:57] VITALS: BP 90/60; PULSE 72
== END | disposition home or self-care (01) ==
LOC: CHF HDHVI 10:23
PROVIDERS: ATTEND Internal Medicine Cardiovascular Disease
DX: I25.118 Atherosclerotic heart disease of native coronary artery with other forms of angina pectoris (principal); L02.419 Cutaneous abscess of limb, unspecified; R06.02 Shortness of breath; I10 Essential (primary) hypertension; R00.2 Palpitations
CPT/HCPCS: G0166

== ENCOUNTER → 2022-11-28 | Outpatient (CLI) | payer MEDICARE, BC ==
[2022-11-28 10:34] VITALS: BP 108/64; PULSE 74
[2022-11-28 11:45] VITALS: BP 110/74; PULSE 60
== END | disposition home or self-care (01) ==
LOC: Rad HDHVI 10:18
PROVIDERS: ATTEND Internal Medicine Cardiovascular Disease
DX: I11.0 Hypertensive heart disease with heart failure (principal); I50.42 Chronic combined systolic (congestive) and diastolic (congestive) heart failure; I25.118 Atherosclerotic heart disease of native coronary artery with other forms of angina pectoris; L02.419 Cutaneous abscess of limb, unspecified; R06.02 Shortness of breath; R00.2 Palpitations
CPT/HCPCS: G0166

== ENCOUNTER → 2022-12-07 | Outpatient (CLI) | payer MEDICARE, BC ==
[2022-12-07 10:37] VITALS: BP 100/64; PULSE 74
[2022-12-07 11:44] VITALS: BP 122/80; PULSE 80
== END | disposition home or self-care (01) ==
LOC: CHF HDHVI 10:29
PROVIDERS: ATTEND Internal Medicine Cardiovascular Disease
DX: I25.118 Atherosclerotic heart disease of native coronary artery with other forms of angina pectoris (principal); L02.419 Cutaneous abscess of limb, unspecified; R06.02 Shortness of breath; I10 Essential (primary) hypertension; R00.2 Palpitations
CPT/HCPCS: G0166

== ENCOUNTER → 2022-12-10 | Outpatient (CLI) | payer MEDICARE, BC ==
[2022-12-10 11:40] VITALS: BP 112/72; PULSE 80
[2022-12-10 11:42] VITALS: BP 100/78; PULSE 80
== END | disposition home or self-care (01) ==
LOC: CHF HDHVI 10:11
PROVIDERS: ATTEND Internal Medicine Cardiovascular Disease
DX: I25.118 Atherosclerotic heart disease of native coronary artery with other forms of angina pectoris (principal); L02.419 Cutaneous abscess of limb, unspecified; R06.02 Shortness of breath; I10 Essential (primary) hypertension; R00.2 Palpitations
CPT/HCPCS: G0166

== ENCOUNTER → 2022-12-12 | Outpatient (CLI) | payer MEDICARE, BC ==
[2022-12-12 10:39] VITALS: BP 120/80; PULSE 80
[2022-12-12 11:37] VITALS: BP 108/72; PULSE 80
== END | disposition home or self-care (01) ==
LOC: CHF HDHVI 10:14
PROVIDERS: ATTEND Internal Medicine Cardiovascular Disease
DX: I11.0 Hypertensive heart disease with heart failure (principal); I50.42 Chronic combined systolic (congestive) and diastolic (congestive) heart failure; I25.118 Atherosclerotic heart disease of native coronary artery with other forms of angina pectoris; R06.02 Shortness of breath; R00.2 Palpitations; L02.419 Cutaneous abscess of limb, unspecified
CPT/HCPCS: G0166

== ENCOUNTER → 2022-12-14 | Outpatient (CLI) | payer MEDICARE, BC ==
[2022-12-14 10:32] VITALS: BP 104/60; PULSE 80
[2022-12-14 11:32] VITALS: BP 100/64; PULSE 81
== END | disposition home or self-care (01) ==
LOC: CHF HDHVI 10:13
PROVIDERS: ATTEND Internal Medicine Cardiovascular Disease
DX: I11.0 Hypertensive heart disease with heart failure (principal); I50.42 Chronic combined systolic (congestive) and diastolic (congestive) heart failure; I25.118 Atherosclerotic heart disease of native coronary artery with other forms of angina pectoris; R06.02 Shortness of breath; R00.2 Palpitations; I10 Essential (primary) hypertension; L02.419 Cutaneous abscess of limb, unspecified
CPT/HCPCS: G0166

== ENCOUNTER → 2022-12-24 | Outpatient (CLI) | payer MEDICARE, BC ==
[2022-12-24 10:48] VITALS: BP 130/86; PULSE 80
[2022-12-24 11:55] VITALS: BP 126/90; PULSE 80
== END | disposition home or self-care (01) ==
LOC: CHF HDHVI 10:18
PROVIDERS: ATTEND Internal Medicine Cardiovascular Disease
DX: I25.118 Atherosclerotic heart disease of native coronary artery with other forms of angina pectoris (principal); I10 Essential (primary) hypertension; R00.2 Palpitations; R06.02 Shortness of breath; L02.419 Cutaneous abscess of limb, unspecified
CPT/HCPCS: G0166

== ENCOUNTER → 2022-12-26 | Outpatient (CLI) | payer MEDICARE, BC ==
[2022-12-26 11:15] VITALS: BP 124/84; PULSE 80
[2022-12-26 11:59] VITALS: BP 110/66; PULSE 80
== END | disposition home or self-care (01) ==
LOC: CHF HDHVI 10:35
PROVIDERS: ATTEND Internal Medicine Cardiovascular Disease
DX: I25.118 Atherosclerotic heart disease of native coronary artery with other forms of angina pectoris (principal); I11.0 Hypertensive heart disease with heart failure; I50.42 Chronic combined systolic (congestive) and diastolic (congestive) heart failure; R00.2 Palpitations; R06.02 Shortness of breath; L02.419 Cutaneous abscess of limb, unspecified
CPT/HCPCS: G0166

== ENCOUNTER → 2022-12-28 | Outpatient (CLI) | payer MEDICARE, BC ==
[2022-12-28 10:49] VITALS: BP 122/76; PULSE 80
[2022-12-28 11:47] VITALS: BP 120/86; PULSE 80
== END | disposition home or self-care (01) ==
LOC: CHF HDHVI 10:20
PROVIDERS: ATTEND Internal Medicine Cardiovascular Disease
DX: I11.0 Hypertensive heart disease with heart failure (principal); I50.42 Chronic combined systolic (congestive) and diastolic (congestive) heart failure; I25.118 Atherosclerotic heart disease of native coronary artery with other forms of angina pectoris; R06.02 Shortness of breath; R00.2 Palpitations; L02.419 Cutaneous abscess of limb, unspecified
CPT/HCPCS: G0166

== ENCOUNTER → 2023-01-07 | Outpatient (CLI) | payer MEDICARE, BC ==
[2023-01-07 11:03] VITALS: BP 130/84; PULSE 80
[2023-01-07 11:50] VITALS: BP 122/82; PULSE 80
== END | disposition home or self-care (01) ==
LOC: CHF HDHVI 10:21
PROVIDERS: ATTEND Internal Medicine Cardiovascular Disease
DX: I25.118 Atherosclerotic heart disease of native coronary artery with other forms of angina pectoris (principal); I10 Essential (primary) hypertension; L02.419 Cutaneous abscess of limb, unspecified; R00.2 Palpitations; R06.02 Shortness of breath
CPT/HCPCS: G0166

== ENCOUNTER → 2023-01-09 | Outpatient (CLI) | payer MEDICARE, BC ==
[2023-01-09 10:54] VITALS: BP 126/72; PULSE 80
[2023-01-09 11:46] VITALS: BP 116/68; PULSE 80
== END | disposition home or self-care (01) ==
LOC: CHF HDHVI 10:18
PROVIDERS: ATTEND Internal Medicine Cardiovascular Disease
DX: I25.118 Atherosclerotic heart disease of native coronary artery with other forms of angina pectoris (principal); L02.419 Cutaneous abscess of limb, unspecified; R06.02 Shortness of breath; R00.2 Palpitations; I11.0 Hypertensive heart disease with heart failure; I50.42 Chronic combined systolic (congestive) and diastolic (congestive) heart failure
CPT/HCPCS: G0166

== ENCOUNTER → 2023-01-11 | Outpatient (CLI) | payer MEDICARE, BC ==
[2023-01-11 10:59] VITALS: BP 120/80; PULSE 80
[2023-01-11 12:05] VITALS: BP 116/80; PULSE 80
== END | disposition home or self-care (01) ==
LOC: CHF HDHVI 10:29
PROVIDERS: ATTEND Internal Medicine Cardiovascular Disease
DX: I25.118 Atherosclerotic heart disease of native coronary artery with other forms of angina pectoris (principal); L02.419 Cutaneous abscess of limb, unspecified; R06.02 Shortness of breath; I10 Essential (primary) hypertension; R00.2 Palpitations
CPT/HCPCS: G0166

== ENCOUNTER → 2023-01-14 | Outpatient (CLI) | payer MEDICARE, BC ==
[2023-01-14 11:04] VITALS: BP 140/78; PULSE 80
[2023-01-14 12:10] VITALS: BP 130/78; PULSE 80
== END | disposition home or self-care (01) ==
LOC: CHF HDHVI 10:26
PROVIDERS: ATTEND Internal Medicine Cardiovascular Disease
DX: I11.0 Hypertensive heart disease with heart failure (principal); I50.42 Chronic combined systolic (congestive) and diastolic (congestive) heart failure; I25.118 Atherosclerotic heart disease of native coronary artery with other forms of angina pectoris; R06.02 Shortness of breath; R00.2 Palpitations; L02.419 Cutaneous abscess of limb, unspecified
CPT/HCPCS: G0166

== ENCOUNTER → 2023-01-21 | Outpatient (CLI) | payer MEDICARE, BC ==
[2023-01-21 10:50] VITALS: BP 106/60; PULSE 75
[2023-01-21 11:53] VITALS: BP 110/70; PULSE 75
== END | disposition home or self-care (01) ==
LOC: CHF HDHVI 10:28
PROVIDERS: ATTEND Internal Medicine Cardiovascular Disease
DX: I25.118 Atherosclerotic heart disease of native coronary artery with other forms of angina pectoris (principal); L02.419 Cutaneous abscess of limb, unspecified; R06.02 Shortness of breath; I10 Essential (primary) hypertension; R00.2 Palpitations
CPT/HCPCS: G0166

== ENCOUNTER → 2023-01-23 | Outpatient (CLI) | payer MEDICARE, BC ==
[2023-01-23 11:12] VITALS: BP 134/82; PULSE 80
== END | disposition home or self-care (01) ==
LOC: CHF HDHVI 10:32
PROVIDERS: ATTEND Internal Medicine Cardiovascular Disease
DX: I11.0 Hypertensive heart disease with heart failure (principal); I50.42 Chronic combined systolic (congestive) and diastolic (congestive) heart failure; I25.118 Atherosclerotic heart disease of native coronary artery with other forms of angina pectoris; L02.419 Cutaneous abscess of limb, unspecified; R06.02 Shortness of breath; R00.2 Palpitations
CPT/HCPCS: G0166

== ENCOUNTER → 2023-02-04 | Outpatient (CLI) | payer MEDICARE, BC ==
[2023-02-04 11:31] VITALS: BP 116/80; PULSE 80
[2023-02-04 12:33] VITALS: BP 132/90; PULSE 75
== END | disposition home or self-care (01) ==
LOC: CHF HDHVI 10:19
PROVIDERS: ATTEND Internal Medicine Cardiovascular Disease
DX: I11.0 Hypertensive heart disease with heart failure (principal); I50.42 Chronic combined systolic (congestive) and diastolic (congestive) heart failure; I25.118 Atherosclerotic heart disease of native coronary artery with other forms of angina pectoris; R06.02 Shortness of breath; R00.2 Palpitations; L02.419 Cutaneous abscess of limb, unspecified
CPT/HCPCS: G0166

== ENCOUNTER → 2023-02-06 | Outpatient (CLI) | payer MEDICARE, BC ==
[2023-02-06 11:12] VITALS: BP 130/86; PULSE 80
[2023-02-06 12:01] VITALS: BP 124/80; PULSE 76
== END | disposition home or self-care (01) ==
LOC: CHF HDHVI 10:15
PROVIDERS: ATTEND Internal Medicine Cardiovascular Disease
DX: I11.0 Hypertensive heart disease with heart failure (principal); I50.42 Chronic combined systolic (congestive) and diastolic (congestive) heart failure; I25.118 Atherosclerotic heart disease of native coronary artery with other forms of angina pectoris; R06.02 Shortness of breath; R00.2 Palpitations; L02.419 Cutaneous abscess of limb, unspecified
CPT/HCPCS: G0166

== ENCOUNTER → 2023-12-04 | Outpatient (CLI) | payer OTHER ==
[~2023-12-04] MED LIST changes: -ATO40T PO; +ATOR-507 PO
== END | disposition home or self-care (01) ==
LOC: Rad HDHVI 11:13
PROVIDERS: ATTEND Internal Medicine Cardiovascular Disease
DX: S00.93XA Contusion of unspecified part of head, initial encounter (principal); X58.XXXA Exposure to other specified factors, initial encounter; Y93.89 Activity, other specified; Y92.89 Other specified places as the place of occurrence of the external cause; Y99.8 Other external cause status
CPT/HCPCS: 70450

== ENCOUNTER → 2023-12-17 | Outpatient (CLI) | payer OTHER | END | disposition home or self-care (01) | LOC: Rad HDHVI 14:57 | PROVIDERS: ATTEND Internal Medicine Cardiovascular Disease | DX: I08.1 Rheumatic disorders of both mitral and tricuspid valves (principal); I11.0 Hypertensive heart disease with heart failure; I50.23 Acute on chronic systolic (congestive) heart failure | CPT/HCPCS: 93306 ==

== ENCOUNTER → 2023-12-23 | Outpatient (CLI) | payer OTHER ==
[~2023-12-23] VITALS: Ht 162.6 cm; Wt 92.1 kg
== END | disposition home or self-care (01) ==
LOC: Rad HDHVI 14:02
PROVIDERS: ATTEND Internal Medicine Cardiovascular Disease
DX: I11.0 Hypertensive heart disease with heart failure (principal); E78.00 Pure hypercholesterolemia, unspecified; I50.23 Acute on chronic systolic (congestive) heart failure; I25.5 Ischemic cardiomyopathy; I25.118 Atherosclerotic heart disease of native coronary artery with other forms of angina pectoris; Z82.49 Family history of ischemic heart disease and other diseases of the circulatory system; Z86.79 Personal history of other diseases of the circulatory system
CPT/HCPCS: 78452; 93017; 96374; A9500

== ENCOUNTER → 2024-07-27 | Outpatient (CLI) | payer OTHER ==
[2024-07-27 14:24] VITALS: BP 126/79; PULSE 64
[2024-07-27 14:25] VITALS: BP 126/76; PULSE 62
== END | disposition home or self-care (01) ==
LOC: CHF HDHVI 10:00
PROVIDERS: ATTEND Internal Medicine Cardiovascular Disease
DX: I25.118 Atherosclerotic heart disease of native coronary artery with other forms of angina pectoris (principal); I50.23 Acute on chronic systolic (congestive) heart failure; I25.5 Ischemic cardiomyopathy; E11.9 Type 2 diabetes mellitus without complications; R06.02 Shortness of breath; Z86.73 Personal history of transient ischemic attack (TIA), and cerebral infarction without residual deficits; Z98.61 Coronary angioplasty status
CPT/HCPCS: G0166

== ENCOUNTER → 2024-07-29 | Outpatient (CLI) | payer OTHER ==
[2024-07-29 12:35] VITALS: BP 123/80; PULSE 71
[2024-07-29 12:36] VITALS: BP 125/71; PULSE 61
== END | disposition home or self-care (01) ==
LOC: CHF HDHVI 10:06
PROVIDERS: ATTEND Internal Medicine Cardiovascular Disease
DX: I25.118 Atherosclerotic heart disease of native coronary artery with other forms of angina pectoris (principal); I25.5 Ischemic cardiomyopathy; I50.23 Acute on chronic systolic (congestive) heart failure; E11.9 Type 2 diabetes mellitus without complications; R06.02 Shortness of breath; Z86.73 Personal history of transient ischemic attack (TIA), and cerebral infarction without residual deficits; Z98.61 Coronary angioplasty status
CPT/HCPCS: G0166

== ENCOUNTER → 2024-07-31 | Outpatient (CLI) | payer OTHER ==
[2024-07-31 12:44] VITALS: BP 124/86; PULSE 70
[2024-07-31 12:45] VITALS: BP 131/74; PULSE 61
== END | disposition home or self-care (01) ==
LOC: CHF HDHVI 10:12
PROVIDERS: ATTEND Internal Medicine Cardiovascular Disease
DX: I25.118 Atherosclerotic heart disease of native coronary artery with other forms of angina pectoris (principal); I25.5 Ischemic cardiomyopathy; I50.23 Acute on chronic systolic (congestive) heart failure; E11.9 Type 2 diabetes mellitus without complications; R06.02 Shortness of breath; Z86.73 Personal history of transient ischemic attack (TIA), and cerebral infarction without residual deficits; Z98.61 Coronary angioplasty status
CPT/HCPCS: G0166

== ENCOUNTER 2024-08-05 10:02 | Outpatient (CLI) | payer OTHER ==
[2024-08-05 13:11] VITALS: BP 139/82; PULSE 63
[2024-08-05 13:12] VITALS: BP 144/82; PULSE 61
== END 2024-08-05 17:00 | disposition home or self-care (01) ==
LOC: CHF HDHVI 10:02
PROVIDERS: ATTEND Internal Medicine Cardiovascular Disease
DX: I25.118 Atherosclerotic heart disease of native coronary artery with other forms of angina pectoris (principal); I25.5 Ischemic cardiomyopathy; I50.23 Acute on chronic systolic (congestive) heart failure; E11.9 Type 2 diabetes mellitus without complications; R06.02 Shortness of breath; Z86.73 Personal history of transient ischemic attack (TIA), and cerebral infarction without residual deficits; Z98.61 Coronary angioplasty status
CPT/HCPCS: G0166

== ENCOUNTER 2024-08-07 10:30 | Outpatient (CLI) | payer OTHER ==
[2024-08-07 12:39] VITALS: BP 133/80; PULSE 66
[2024-08-07 12:41] VITALS: BP 131/84; PULSE 62
== END 2024-08-07 17:00 | disposition home or self-care (01) ==
LOC: CHF HDHVI 10:30
PROVIDERS: ATTEND Internal Medicine Cardiovascular Disease
DX: I25.118 Atherosclerotic heart disease of native coronary artery with other forms of angina pectoris (principal); I50.23 Acute on chronic systolic (congestive) heart failure; I25.5 Ischemic cardiomyopathy
CPT/HCPCS: G0166

== ENCOUNTER 2024-08-10 10:02 | Outpatient (CLI) | payer OTHER ==
[2024-08-10 14:10] VITALS: BP 135/80; PULSE 63
[2024-08-10 14:11] VITALS: BP 124/79; PULSE 61
== END 2024-08-10 17:00 | disposition home or self-care (01) ==
LOC: CHF HDHVI 10:02
PROVIDERS: ATTEND Internal Medicine Cardiovascular Disease
DX: I25.118 Atherosclerotic heart disease of native coronary artery with other forms of angina pectoris (principal); I25.5 Ischemic cardiomyopathy; I50.23 Acute on chronic systolic (congestive) heart failure; E11.9 Type 2 diabetes mellitus without complications; R06.02 Shortness of breath; Z86.73 Personal history of transient ischemic attack (TIA), and cerebral infarction without residual deficits; Z98.61 Coronary angioplasty status
CPT/HCPCS: G0166

== ENCOUNTER 2024-08-24 10:05 | Outpatient (CLI) | payer OTHER ==
[2024-08-24 16:45] VITALS: BP 142/80; PULSE 64
[2024-08-24 16:46] VITALS: BP 130/80; PULSE 63
== END 2024-08-24 17:00 | disposition home or self-care (01) ==
LOC: CHF HDHVI 10:05
PROVIDERS: ATTEND Internal Medicine Cardiovascular Disease
DX: I25.118 Atherosclerotic heart disease of native coronary artery with other forms of angina pectoris (principal); I25.5 Ischemic cardiomyopathy; I50.23 Acute on chronic systolic (congestive) heart failure; R06.02 Shortness of breath; E11.9 Type 2 diabetes mellitus without complications; Z86.73 Personal history of transient ischemic attack (TIA), and cerebral infarction without residual deficits; Z98.61 Coronary angioplasty status
CPT/HCPCS: G0166

== ENCOUNTER 2024-08-26 10:02 | Outpatient (CLI) | payer OTHER ==
[2024-08-26 14:45] VITALS: BP 128/72; PULSE 61
[2024-08-26 14:46] VITALS: BP 140/78; PULSE 63
== END 2024-08-26 17:00 | disposition home or self-care (01) ==
LOC: CHF HDHVI 10:02
PROVIDERS: ATTEND Internal Medicine Cardiovascular Disease
DX: I25.118 Atherosclerotic heart disease of native coronary artery with other forms of angina pectoris (principal); I50.23 Acute on chronic systolic (congestive) heart failure; I25.5 Ischemic cardiomyopathy; E11.9 Type 2 diabetes mellitus without complications; R06.02 Shortness of breath; Z86.73 Personal history of transient ischemic attack (TIA), and cerebral infarction without residual deficits; Z98.61 Coronary angioplasty status
CPT/HCPCS: G0166

== ENCOUNTER 2024-08-28 10:06 | Outpatient (CLI) | payer OTHER ==
[2024-08-28 11:51] VITALS: BP 141/84; PULSE 62
[2024-08-28 11:52] VITALS: BP 133/80; PULSE 61
== END 2024-08-28 17:00 | disposition home or self-care (01) ==
LOC: CHF HDHVI 10:06
PROVIDERS: ATTEND Internal Medicine Cardiovascular Disease
DX: I25.118 Atherosclerotic heart disease of native coronary artery with other forms of angina pectoris (principal); I25.5 Ischemic cardiomyopathy; I50.23 Acute on chronic systolic (congestive) heart failure; E11.9 Type 2 diabetes mellitus without complications; R06.02 Shortness of breath; Z98.61 Coronary angioplasty status; Z86.73 Personal history of transient ischemic attack (TIA), and cerebral infarction without residual deficits
CPT/HCPCS: G0166

== ENCOUNTER 2024-08-31 10:03 | Outpatient (CLI) | payer OTHER ==
[2024-08-31 15:22] VITALS: BP_SYST 122; BP_SYST 124; BP_DIAS 79; BP_DIAS 85; PULSE 63; PULSE 64
== END 2024-08-31 17:00 | disposition home or self-care (01) ==
LOC: CHF HDHVI 10:03
PROVIDERS: ATTEND Internal Medicine Cardiovascular Disease
DX: I25.118 Atherosclerotic heart disease of native coronary artery with other forms of angina pectoris (principal); I25.5 Ischemic cardiomyopathy; I50.23 Acute on chronic systolic (congestive) heart failure; E11.9 Type 2 diabetes mellitus without complications; R06.02 Shortness of breath; Z86.73 Personal history of transient ischemic attack (TIA), and cerebral infarction without residual deficits; Z98.61 Coronary angioplasty status
CPT/HCPCS: G0166

== ENCOUNTER 2024-09-02 10:04 | Outpatient (CLI) | payer OTHER ==
[2024-09-02 13:34] VITALS: BP 129/80; PULSE 63
[2024-09-02 13:35] VITALS: BP 127/68; PULSE 70
== END 2024-09-02 17:00 | disposition home or self-care (01) ==
LOC: CHF HDHVI 10:04
PROVIDERS: ATTEND Internal Medicine Cardiovascular Disease
DX: I25.118 Atherosclerotic heart disease of native coronary artery with other forms of angina pectoris (principal); I25.5 Ischemic cardiomyopathy; I50.23 Acute on chronic systolic (congestive) heart failure; E11.9 Type 2 diabetes mellitus without complications; R06.02 Shortness of breath; Z86.73 Personal history of transient ischemic attack (TIA), and cerebral infarction without residual deficits; Z98.61 Coronary angioplasty status
CPT/HCPCS: G0166

== ENCOUNTER 2024-09-09 10:08 | Outpatient (CLI) | payer OTHER ==
[2024-09-09 15:50] VITALS: BP 140/84; PULSE 63
[2024-09-09 15:51] VITALS: BP 142/84; PULSE 62
== END 2024-09-09 17:00 | disposition home or self-care (01) ==
LOC: CHF HDHVI 10:08
PROVIDERS: ATTEND Internal Medicine Cardiovascular Disease
DX: I25.118 Atherosclerotic heart disease of native coronary artery with other forms of angina pectoris (principal); I50.23 Acute on chronic systolic (congestive) heart failure; I25.5 Ischemic cardiomyopathy; R06.02 Shortness of breath; Z86.39 Personal history of other endocrine, nutritional and metabolic disease; Z86.73 Personal history of transient ischemic attack (TIA), and cerebral infarction without residual deficits; Z98.61 Coronary angioplasty status
CPT/HCPCS: G0166

== ENCOUNTER 2024-09-14 09:38 | Outpatient (CLI) | payer OTHER ==
[2024-09-14 12:58] VITALS: BP 133/81; PULSE 79
[2024-09-14 12:59] VITALS: BP 136/84; PULSE 62
== END 2024-09-14 17:00 | disposition home or self-care (01) ==
LOC: CHF HDHVI 09:38
PROVIDERS: ATTEND Internal Medicine Cardiovascular Disease
DX: I25.118 Atherosclerotic heart disease of native coronary artery with other forms of angina pectoris (principal); I50.23 Acute on chronic systolic (congestive) heart failure; I25.5 Ischemic cardiomyopathy; E11.9 Type 2 diabetes mellitus without complications; R06.02 Shortness of breath; Z98.61 Coronary angioplasty status
CPT/HCPCS: G0166

== ENCOUNTER 2024-09-18 10:17 | Outpatient (CLI) | payer OTHER ==
[2024-09-18 12:51] VITALS: BP 130/82; PULSE 64
[2024-09-18 12:52] VITALS: BP 125/70; PULSE 65
== END 2024-09-18 17:00 | disposition home or self-care (01) ==
LOC: CHF HDHVI 10:17
PROVIDERS: ATTEND Internal Medicine Cardiovascular Disease
DX: I25.118 Atherosclerotic heart disease of native coronary artery with other forms of angina pectoris (principal); I25.5 Ischemic cardiomyopathy; I50.23 Acute on chronic systolic (congestive) heart failure; E11.9 Type 2 diabetes mellitus without complications; R06.02 Shortness of breath; Z86.73 Personal history of transient ischemic attack (TIA), and cerebral infarction without residual deficits; Z98.61 Coronary angioplasty status
CPT/HCPCS: G0166

== ENCOUNTER 2024-09-21 10:10 | Outpatient (CLI) | payer OTHER ==
[2024-09-21 13:29] VITALS: BP_SYST 128; BP_SYST 137; BP_DIAS 80; BP_DIAS 85; PULSE 61; PULSE 62
== END 2024-09-21 17:00 | disposition home or self-care (01) ==
LOC: CHF HDHVI 10:10
PROVIDERS: ATTEND Internal Medicine Cardiovascular Disease
DX: I25.118 Atherosclerotic heart disease of native coronary artery with other forms of angina pectoris (principal); I25.5 Ischemic cardiomyopathy; I50.23 Acute on chronic systolic (congestive) heart failure; E11.9 Type 2 diabetes mellitus without complications; R06.02 Shortness of breath; Z86.73 Personal history of transient ischemic attack (TIA), and cerebral infarction without residual deficits; Z98.61 Coronary angioplasty status
CPT/HCPCS: G0166

== ENCOUNTER 2024-09-25 10:09 | Outpatient (CLI) | payer OTHER ==
[2024-09-25 15:33] VITALS: BP 135/82; PULSE 62
[2024-09-25 15:34] VITALS: BP 125/81; PULSE 63
== END 2024-09-25 17:00 | disposition home or self-care (01) ==
LOC: CHF HDHVI 10:09
PROVIDERS: ATTEND Internal Medicine Cardiovascular Disease
DX: I25.118 Atherosclerotic heart disease of native coronary artery with other forms of angina pectoris (principal); I50.23 Acute on chronic systolic (congestive) heart failure; E11.9 Type 2 diabetes mellitus without complications; R06.02 Shortness of breath; Z98.61 Coronary angioplasty status; Z86.73 Personal history of transient ischemic attack (TIA), and cerebral infarction without residual deficits
CPT/HCPCS: G0166

== ENCOUNTER 2024-09-28 10:24 | Outpatient (CLI) | payer OTHER ==
[2024-09-28 11:42] VITALS: BP 118/80; PULSE 63
[2024-09-28 11:43] VITALS: BP 129/80; PULSE 61
== END 2024-09-28 17:00 | disposition home or self-care (01) ==
LOC: CHF HDHVI 10:24
PROVIDERS: ATTEND Internal Medicine Cardiovascular Disease
DX: I25.118 Atherosclerotic heart disease of native coronary artery with other forms of angina pectoris (principal); I25.5 Ischemic cardiomyopathy; I50.23 Acute on chronic systolic (congestive) heart failure; E11.8 Type 2 diabetes mellitus with unspecified complications; R06.02 Shortness of breath; Z98.61 Coronary angioplasty status; Z86.73 Personal history of transient ischemic attack (TIA), and cerebral infarction without residual deficits
CPT/HCPCS: G0166

== ENCOUNTER 2024-09-30 10:01 | Outpatient (CLI) | payer OTHER ==
[2024-09-30 15:17] VITALS: BP 117/88; PULSE 61
[2024-09-30 15:18] VITALS: BP 129/88; PULSE 64
== END 2024-09-30 17:00 | disposition home or self-care (01) ==
LOC: CHF HDHVI 10:01
PROVIDERS: ATTEND Internal Medicine Cardiovascular Disease
DX: I25.118 Atherosclerotic heart disease of native coronary artery with other forms of angina pectoris (principal); I25.5 Ischemic cardiomyopathy; I50.23 Acute on chronic systolic (congestive) heart failure; R06.02 Shortness of breath; E11.8 Type 2 diabetes mellitus with unspecified complications; Z86.73 Personal history of transient ischemic attack (TIA), and cerebral infarction without residual deficits; Z98.61 Coronary angioplasty status
CPT/HCPCS: G0166

== ENCOUNTER 2024-10-02 10:04 | Outpatient (CLI) | payer OTHER ==
[2024-10-02 14:29] VITALS: BP_SYST 119; BP_SYST 124; BP_DIAS 87; BP_DIAS 88; PULSE 61; PULSE 64
== END 2024-10-02 17:00 | disposition home or self-care (01) ==
LOC: CHF HDHVI 10:04
PROVIDERS: ATTEND Internal Medicine Cardiovascular Disease
DX: I25.118 Atherosclerotic heart disease of native coronary artery with other forms of angina pectoris (principal); I50.23 Acute on chronic systolic (congestive) heart failure; I25.5 Ischemic cardiomyopathy; E11.9 Type 2 diabetes mellitus without complications; R06.02 Shortness of breath; Z86.73 Personal history of transient ischemic attack (TIA), and cerebral infarction without residual deficits; Z98.61 Coronary angioplasty status
CPT/HCPCS: G0166

== ENCOUNTER → 2024-10-05 | Outpatient (CLI) | payer OTHER ==
[2024-10-05 11:47] VITALS: BP_SYST 124; BP_DIAS 84; BP_DIAS 89; PULSE 62; PULSE 64
== END | disposition home or self-care (01) ==
LOC: CHF HDHVI 10:07
PROVIDERS: ATTEND Internal Medicine Cardiovascular Disease
DX: I25.118 Atherosclerotic heart disease of native coronary artery with other forms of angina pectoris (principal); I50.23 Acute on chronic systolic (congestive) heart failure; I25.5 Ischemic cardiomyopathy; R06.02 Shortness of breath; E11.9 Type 2 diabetes mellitus without complications; Z86.73 Personal history of transient ischemic attack (TIA), and cerebral infarction without residual deficits; Z98.61 Coronary angioplasty status
CPT/HCPCS: G0166

== ENCOUNTER 2024-10-06 10:08 | Outpatient (CLI) | payer OTHER ==
[2024-10-06 11:44] VITALS: BP_SYST 117; BP_SYST 127; BP_DIAS 80; BP_DIAS 82; PULSE 61; PULSE 62
== END 2024-10-06 17:00 | disposition home or self-care (01) ==
LOC: CHF HDHVI 10:08
PROVIDERS: ATTEND Internal Medicine Cardiovascular Disease
DX: I25.118 Atherosclerotic heart disease of native coronary artery with other forms of angina pectoris (principal); I25.5 Ischemic cardiomyopathy; I50.23 Acute on chronic systolic (congestive) heart failure; R06.02 Shortness of breath; E11.9 Type 2 diabetes mellitus without complications; Z98.61 Coronary angioplasty status; Z86.73 Personal history of transient ischemic attack (TIA), and cerebral infarction without residual deficits
CPT/HCPCS: G0166

== ENCOUNTER 2024-10-09 10:08 | Outpatient (CLI) | payer OTHER ==
[2024-10-09 14:44] VITALS: BP_SYST 121; BP_SYST 132; BP_DIAS 79; BP_DIAS 88; PULSE 62
== END 2024-10-09 17:00 | disposition home or self-care (01) ==
LOC: CHF HDHVI 10:08
PROVIDERS: ATTEND Internal Medicine Cardiovascular Disease
DX: I25.118 Atherosclerotic heart disease of native coronary artery with other forms of angina pectoris (principal); I25.5 Ischemic cardiomyopathy; I50.23 Acute on chronic systolic (congestive) heart failure; R06.02 Shortness of breath; E11.9 Type 2 diabetes mellitus without complications; Z98.61 Coronary angioplasty status; Z86.73 Personal history of transient ischemic attack (TIA), and cerebral infarction without residual deficits
CPT/HCPCS: G0166

== ENCOUNTER 2024-10-12 10:08 | Outpatient (CLI) | payer OTHER ==
[2024-10-12 14:59] VITALS: BP_SYST 131; BP_SYST 135; BP_DIAS 75; BP_DIAS 87; PULSE 61; PULSE 68
== END 2024-10-12 17:00 | disposition home or self-care (01) ==
LOC: CHF HDHVI 10:08
PROVIDERS: ATTEND Internal Medicine Cardiovascular Disease
DX: I25.118 Atherosclerotic heart disease of native coronary artery with other forms of angina pectoris (principal); I25.5 Ischemic cardiomyopathy; I50.23 Acute on chronic systolic (congestive) heart failure; R06.02 Shortness of breath; E11.9 Type 2 diabetes mellitus without complications; Z98.61 Coronary angioplasty status; Z86.73 Personal history of transient ischemic attack (TIA), and cerebral infarction without residual deficits
CPT/HCPCS: G0166

== ENCOUNTER 2024-10-14 10:06 | Outpatient (CLI) | payer OTHER ==
[2024-10-14 14:41] VITALS: BP 137/81; PULSE 63
[2024-10-14 14:42] VITALS: BP 128/80; PULSE 62
== END 2024-10-14 17:00 | disposition home or self-care (01) ==
LOC: CHF HDHVI 10:06
PROVIDERS: ATTEND Internal Medicine Cardiovascular Disease
DX: I25.118 Atherosclerotic heart disease of native coronary artery with other forms of angina pectoris (principal); I25.5 Ischemic cardiomyopathy; I50.23 Acute on chronic systolic (congestive) heart failure; E11.9 Type 2 diabetes mellitus without complications; R06.02 Shortness of breath; Z98.61 Coronary angioplasty status; Z86.73 Personal history of transient ischemic attack (TIA), and cerebral infarction without residual deficits
CPT/HCPCS: G0166

== ENCOUNTER 2024-10-16 10:10 | Outpatient (CLI) | payer OTHER ==
[2024-10-16 13:08] VITALS: BP 132/81; PULSE 63
[2024-10-16 13:09] VITALS: BP 128/78; PULSE 60
== END 2024-10-16 17:00 | disposition home or self-care (01) ==
LOC: CHF HDHVI 10:10
PROVIDERS: ATTEND Internal Medicine Cardiovascular Disease
DX: I25.118 Atherosclerotic heart disease of native coronary artery with other forms of angina pectoris (principal); I25.5 Ischemic cardiomyopathy; I50.23 Acute on chronic systolic (congestive) heart failure; E11.9 Type 2 diabetes mellitus without complications
CPT/HCPCS: G0166

== ENCOUNTER 2024-10-19 10:11 | Outpatient (CLI) | payer OTHER ==
[2024-10-19 14:56] VITALS: BP 118/74; PULSE 62
[2024-10-19 14:57] VITALS: BP 123/79; PULSE 62
== END 2024-10-19 17:00 | disposition home or self-care (01) ==
LOC: CHF HDHVI 10:11
PROVIDERS: ATTEND Internal Medicine Cardiovascular Disease
DX: I25.118 Atherosclerotic heart disease of native coronary artery with other forms of angina pectoris (principal); I25.5 Ischemic cardiomyopathy; I50.23 Acute on chronic systolic (congestive) heart failure; E11.9 Type 2 diabetes mellitus without complications; R06.02 Shortness of breath; Z86.73 Personal history of transient ischemic attack (TIA), and cerebral infarction without residual deficits; Z98.61 Coronary angioplasty status
CPT/HCPCS: G0166

== ENCOUNTER 2024-10-23 09:58 | Outpatient (CLI) | payer OTHER ==
[2024-10-23 13:15] VITALS: BP 123/70; PULSE 61
[2024-10-23 13:16] VITALS: BP 121/68; PULSE 61
== END 2024-10-23 17:00 | disposition home or self-care (01) ==
LOC: CHF HDHVI 09:58
PROVIDERS: ATTEND Internal Medicine Cardiovascular Disease
DX: I25.118 Atherosclerotic heart disease of native coronary artery with other forms of angina pectoris (principal); I25.5 Ischemic cardiomyopathy; I50.23 Acute on chronic systolic (congestive) heart failure; E11.9 Type 2 diabetes mellitus without complications; R06.02 Shortness of breath; Z86.73 Personal history of transient ischemic attack (TIA), and cerebral infarction without residual deficits; Z98.61 Coronary angioplasty status
CPT/HCPCS: G0166

== ENCOUNTER 2024-10-26 10:08 | Outpatient (CLI) | payer OTHER ==
[2024-10-26 14:41] VITALS: BP 124/69; PULSE 62
[2024-10-26 14:42] VITALS: BP 128/84; PULSE 61
== END 2024-10-26 17:00 | disposition home or self-care (01) ==
LOC: CHF HDHVI 10:08
PROVIDERS: ATTEND Internal Medicine Cardiovascular Disease
DX: I25.118 Atherosclerotic heart disease of native coronary artery with other forms of angina pectoris (principal); I25.5 Ischemic cardiomyopathy; I50.23 Acute on chronic systolic (congestive) heart failure; E11.9 Type 2 diabetes mellitus without complications; R06.02 Shortness of breath; Z98.61 Coronary angioplasty status; Z86.73 Personal history of transient ischemic attack (TIA), and cerebral infarction without residual deficits
CPT/HCPCS: G0166

== ENCOUNTER 2024-10-28 10:01 | Outpatient (CLI) | payer OTHER ==
[2024-10-28 14:51] VITALS: BP 117/78; PULSE 64
[2024-10-28 14:52] VITALS: BP 121/78; PULSE 64
== END 2024-10-28 17:00 | disposition home or self-care (01) ==
LOC: CHF HDHVI 10:01
PROVIDERS: ATTEND Internal Medicine Cardiovascular Disease
DX: I25.118 Atherosclerotic heart disease of native coronary artery with other forms of angina pectoris (principal); I50.23 Acute on chronic systolic (congestive) heart failure; E11.9 Type 2 diabetes mellitus without complications; R06.02 Shortness of breath; Z98.61 Coronary angioplasty status; Z86.73 Personal history of transient ischemic attack (TIA), and cerebral infarction without residual deficits
CPT/HCPCS: G0166

== ENCOUNTER 2024-10-30 10:08 | Outpatient (CLI) | payer OTHER ==
[2024-10-30 13:50] VITALS: BP_SYST 130; BP_SYST 135; BP_DIAS 81; BP_DIAS 82; PULSE 62
== END 2024-10-30 17:00 | disposition home or self-care (01) ==
LOC: CHF HDHVI 10:08
PROVIDERS: ATTEND Internal Medicine Cardiovascular Disease
DX: I25.118 Atherosclerotic heart disease of native coronary artery with other forms of angina pectoris (principal); I50.23 Acute on chronic systolic (congestive) heart failure; I25.5 Ischemic cardiomyopathy; E11.9 Type 2 diabetes mellitus without complications; R06.02 Shortness of breath; Z98.61 Coronary angioplasty status; Z86.73 Personal history of transient ischemic attack (TIA), and cerebral infarction without residual deficits
CPT/HCPCS: G0166

== ENCOUNTER 2024-12-08 10:10 | Outpatient (CLI) | payer OTHER ==
--- NOTE | 2024-12-08 14:52 | DVHSR ---
APPROVED REPORT EXAM: Two-dimensional and M-mode echocardiogram with Doppler and color Doppler. RISK FACTORS Obesity: DIMENSIONS LVDd4.4 (3.8-5.7cm)LA (2D)2.8 (1.9-4.0cm)Aortic Root4.1 (2.0-3.7cm) LVDs3.1 (2.5-4.0cm)LA (MM) (1.9-4.0cm)Aortic Cusp Exc1.9 (1.5-2.0cm) EF (%) 60.0 (55-70%)Rt. Atrium3.2 (1.9-4.0cm)Asc. Aorta4.0 cm IVSd1.2 (0.7-1.1cm)RV (D)3.6 (1.8-2.4cm) PWd1.1 (0.7-1.1cm) Mitral Valve MitralMitral Stenosis E wave0.70m/sMV Mean GR.mmHg A wave0.85m/sMV Peak GR.mmHg E/A ratio0.82D MVAcm2 DECEL [id number] 1/2 Timems Aortic Valve Aortic ValveAortic Stenosis V10.89m/Milind Mean GR.4mmHg V21.41m/Milind Peak GR.8mmHg LVOT Diameter1.9 (1.8-2.4cm)Doppler AVA1.79cm2 Pulmonic Valve V20.73m/s Tricuspid Valve TR Velocity2.35m/s [id number] LEFT VENTRICLE The left ventricle is normal size. The left ventricle is normal in structure and function. The Ejection Fraction is within normal limits. RIGHT VENTRICLE The right ventricle is normal size. ATRIA The left atrial size is normal. The right atrium size is normal. The interatrial septum is intact with no evidence for an atrial septal defect. MITRAL VALVE The mitral valve is normal in structure. There is no mitral valve regurgitation noted. PULMONIC VALVE The pulmonic valve is not well visualized. There is trace pulmonic valvular regurgitation. TRICUSPID VALVE The tricuspid valve is grossly normal. There is mild tricuspid regurgitation. Right ventricular systolic pressure is 30-40 mmHg. AORTIC VALVE The aortic valve opens well. No aortic regurgitation is present. GREAT VESSELS The aortic root is enlarged. The ascending aorta is enlarged. PERICARDIAL EFFUSION There is no pericardial effusion. Other Information Technically limited study due to body habitus. Conclusion EF >55% LVH DILATED ASCENDING AORTA MILD TR
== END 2024-12-08 17:00 | disposition home or self-care (01) ==
LOC: Rad HDHVI 10:10
PROVIDERS: ATTEND Internal Medicine Cardiovascular Disease
DX: I07.1 Rheumatic tricuspid insufficiency (principal); R07.9 Chest pain, unspecified; I77.819 Aortic ectasia, unspecified site
CPT/HCPCS: 93306

== ENCOUNTER 2024-12-09 10:08 | Outpatient (CLI) | payer OTHER ==
[~2024-12-09] VITALS: Ht 162.6 cm; Wt 92.5 kg
== END 2024-12-09 17:00 | disposition home or self-care (01) ==
LOC: Rad HDHVI 10:08
PROVIDERS: ATTEND Internal Medicine Cardiovascular Disease
DX: I49.3 Ventricular premature depolarization (principal); I49.1 Atrial premature depolarization; I11.0 Hypertensive heart disease with heart failure; I50.43 Acute on chronic combined systolic (congestive) and diastolic (congestive) heart failure; I25.2 Old myocardial infarction; I24.0 Acute coronary thrombosis not resulting in myocardial infarction; I25.5 Ischemic cardiomyopathy; E78.00 Pure hypercholesterolemia, unspecified; J40 Bronchitis, not specified as acute or chronic; R07.89 Other chest pain; R42 Dizziness and giddiness; Z95.0 Presence of cardiac pacemaker
CPT/HCPCS: 78452; 93017; A9500; 96374